=== PATIENT | female | born 1940 | race Two or more races ===

== ENCOUNTER 2022-08-24 02:21 | Inpatient (IN) | payer MEDICARE, MEDICAID ==
[~2022-08-24] VITALS: Ht 170.2 cm; Wt 71.1 kg
[2022-08-24 02:49] LABS: Basophils # (auto) 0.1 10 ^3/uL (0-0.2); Basophils % (auto) 0.8 % (0.0-2.0); Eosinophils # (auto) 0.3 10 ^3/uL (0-0.8); Hematocrit 31.1 % (36.0-46.0); Hemoglobin 10.2 g/dL (12.2-16.2); Lymphocytes # (auto) 2.1 10 ^3/uL (0.4-5.4); Lymphocytes % (auto) 25.3 % (10.0-50.0); Mean Corpuscular Hemoglobin 27.6 pg (28.0-32.0); Mean Corpuscular Hgb Conc. 32.9 g/dL (32.0-36.0); Mean Corpuscular Volume 83.8 fL (80.0-100.0); Monocytes # (auto) 0.6 10 ^3/uL (0-1.3); Monocytes % (auto) 6.6 % (0.0-12.0); Neutrophils # (auto) 5.4 10 ^3/uL (1.6-8.6); Neutrophils % (auto) 64.3 % (37.0-80.0); Red Blood Cells 3.71 10^6/uL (4.0-5.20); Red Cell Distribution Width 14.8 % (11.8-14.3); White Blood Cell 8.4 10^3/uL (4.4-10.8)
[2022-08-24 03:07] LABS: INR 0.99 (0.9-1.15); Partial Thromboplastin Time 23.9 sec (24.6-33.4)
[2022-08-24 03:51] VITALS: BP 112/46
[2022-08-24 04:14] VITALS: BP 112/46
[2022-08-24 04:17] LABS: Albumin 3.5 g/dL (3.4-5.0); Calcium 8.4 mg/dL (8.5-10.1); Potassium 4.2 mmol/L (3.5-5.1)
[2022-08-24 04:20] LABS: BUN/Creatinine Ratio 34.9 (10.0-20.0); Bilirubin, Total 0.2 mg/dL (0.2-1.0); Total Protein 6.8 g/dL (6.4-8.2)
[2022-08-24] MEDS ORDERED: ONDANSETRON HCL 4 MG/2 ML VIAL IV PRN (05:15)
[2022-08-24] MEDS ORDERED: DEXTROSE (50%) 50ML SYRG IV PRN (05:15)
[2022-08-24] MEDS ORDERED: HYDROcodone-ACET 5/325MG TAB PO PRN (05:15)
[2022-08-24] MEDS ORDERED: ACETAMINOPHEN 325 MG TAB PO PRN (05:15)
[2022-08-24] MEDS ORDERED: DOCUSATE SOD 100 MG CAP PO PRN (05:15)
[2022-08-24] MEDS: FUROSEMIDE 40 MG/4 ML VIAL IV ONE ×2 (06:00→06:32)
[2022-08-24] MEDS ORDERED: IPRATROPIUM BROM 0.5 MG/2.5ML INH SOL NEB PRN (06:00)
[2022-08-24] MEDS ORDERED: MORPHINE SULFATE INJ 2 MG/ml SYRG IV PRN (06:00)
[2022-08-24] MEDS ORDERED: NITROGLYCERIN 0.4 MG SL TAB SL PRN (06:00)
[2022-08-24] MEDS ORDERED: ALBUTEROL SULF 2.5 MG/0.5ML(0.5%) NEB SOLN NEB PRN (06:00)
[2022-08-24] MEDS: methylPREDNISolone SOD SUCC 40 MG/ML VL IV SCH ×2 (06:00→15:00)
[2022-08-24] MEDS: SODIUM CHLOR 0.9% PF (SALINE LOCK) 10ML VIAL/SYR IV SCH ×3 (06:17→22:41)
[2022-08-24] MEDS: InsuLIN REG 1unit/0.01ml Soln (100units/ml) SC SCH ×4 (07:00→22:38)
[2022-08-24] MEDS: ACCU-CHEK COMFORT CURVE STRIP VI SCH ×4 (07:00→22:41)
[2022-08-24 07:15] LABS: Urine Bacteria NONE SEEN /hpf (None Seen); Urine Blood Negative /uL (Negative); Urine Specific Gravity 1.012 (1.001-1.035); Urine WBC 1 /hpf (0 - 5)
[2022-08-24] MEDS: FUROSEMIDE 40 MG/4 ML VIAL IV SCH (10:49)
[2022-08-24] MEDS: ASPirin 81 mg TAB PO SCH (10:50)
[2022-08-24] MEDS ORDERED: DOBUTamine 1000MCG/ML 250 ML IV SCH (12:00)
[2022-08-24] MEDS: DOBUTamine 1000MCG/ML 250 ML IV SCH (12:31)
[2022-08-24] MEDS ORDERED: DexAMETHasone SOD PHOS 10MG/1ML VIAL INJ IV ONE (15:15)
[2022-08-24] MEDS ORDERED: ATORVASTATIN 20 MG TAB PO SCH (22:00)
[2022-08-24] MEDS: ATORVASTATIN 20 MG TAB PO SCH (22:40)
[2022-08-24] MEDS ORDERED: METO50CA (23:07)
[2022-08-24] MEDS ORDERED: AMLO1TAB23 PO (23:07)
[2022-08-24] MEDS ORDERED: ASPI-325 PO (23:07)
[2022-08-24] MEDS ORDERED: SIMV40TA18 PO (23:07)
[2022-08-24] MEDS ORDERED: FURO40TA4 PO (23:07)
[2022-08-24] MEDS ORDERED: METF-370 PO (23:07)
[2022-08-24] MEDS ORDERED: MONT-8 PO (23:07)
[2022-08-25] VITALS (7 sets, daily range): BP systolic 139–161; BP diastolic 43–80
[2022-08-25] MEDS: ACCU-CHEK COMFORT CURVE STRIP VI SCH ×4 (06:18→22:04)
[2022-08-25] MEDS: SODIUM CHLOR 0.9% PF (SALINE LOCK) 10ML VIAL/SYR IV SCH ×3 (06:18→22:06)
[2022-08-25] MEDS: InsuLIN REG 1unit/0.01ml Soln (100units/ml) SC SCH ×4 (06:20→22:06)
[2022-08-25 09:53] LABS: Basophils # (auto) 0 10 ^3/uL (0-0.2); Basophils % (auto) 0.3 % (0.0-2.0); Eosinophils # (auto) 0 10 ^3/uL (0-0.8); Hematocrit 26.6 % (36.0-46.0); Hemoglobin 8.7 g/dL (12.2-16.2); Lymphocytes # (auto) 0.6 10 ^3/uL (0.4-5.4); Mean Corpuscular Hemoglobin 27.3 pg (28.0-32.0); Mean Corpuscular Hgb Conc. 32.7 g/dL (32.0-36.0); Mean Corpuscular Volume 83.4 fL (80.0-100.0); Monocytes # (auto) 0.5 10 ^3/uL (0-1.3); Monocytes % (auto) 8.8 % (0.0-12.0); Neutrophils # (auto) 4.5 10 ^3/uL (1.6-8.6); Neutrophils % (auto) 79.9 % (37.0-80.0); Red Blood Cells 3.19 10^6/uL (4.0-5.20); Red Cell Distribution Width 14.7 % (11.8-14.3); White Blood Cell 5.6 10^3/uL (4.4-10.8)
[2022-08-25 10:25] LABS: Albumin 3.4 g/dL (3.4-5.0); Calcium 8.8 mg/dL (8.5-10.1); Potassium 4.3 mmol/L (3.5-5.1)
[2022-08-25 10:31] LABS: BUN/Creatinine Ratio 34.2 (10.0-20.0); Bilirubin, Total 0.2 mg/dL (0.2-1.0); Total Protein 6.4 g/dL (6.4-8.2)
[2022-08-25] MEDS: FUROSEMIDE 40 MG/4 ML VIAL IV SCH (10:42)
[2022-08-25] MEDS: ASPirin 81 mg TAB PO SCH (10:43)
[2022-08-25] MEDS: DexAMETHasone SOD PHOS 10MG/1ML VIAL INJ IV SCH (10:43)
[2022-08-25] MEDS: DOBUTamine 1000MCG/ML 250 ML IV SCH (11:48)
[2022-08-25] MEDS ORDERED: ALBUTEROL SULF 2.5 MG/0.5ML(0.5%) NEB SOLN ONE (14:06)
[2022-08-25] MEDS ORDERED: DexAMETHasone SOD PHOS 4 MG/1ML SDV INJ ONE (14:11)
[2022-08-25] MEDS ORDERED: ALBUTEROL SULF 2.5 MG/0.5ML(0.5%) NEB SOLN NEB ONE (14:15)
[2022-08-25] MEDS ORDERED: hydrALAZINE HCL 20 MG/ML VL IV PRN (14:45)
[2022-08-25] MEDS ORDERED: hydrALAZINE HCL 20 MG/ML VL IV ONE (14:45)
[2022-08-25] MEDS: ATORVASTATIN 20 MG TAB PO SCH (21:11)
[2022-08-26] VITALS (8 sets, daily range): BP systolic 133–161; BP diastolic 47–82
[2022-08-26] MEDS: SODIUM CHLOR 0.9% PF (SALINE LOCK) 10ML VIAL/SYR IV SCH ×3 (06:19→21:28)
[2022-08-26] MEDS: InsuLIN REG 1unit/0.01ml Soln (100units/ml) SC SCH ×4 (06:20→21:28)
[2022-08-26] MEDS: ACCU-CHEK COMFORT CURVE STRIP VI SCH ×4 (06:20→21:25)
[2022-08-26] MEDS: ASPirin 81 mg TAB PO SCH (08:57)
[2022-08-26] MEDS: FUROSEMIDE 40 MG/4 ML VIAL IV SCH (08:59)
[2022-08-26] MEDS: DexAMETHasone SOD PHOS 10MG/1ML VIAL INJ IV SCH (08:59)
[2022-08-26] MEDS: ATORVASTATIN 20 MG TAB PO SCH (21:23)
[2022-08-27 05:00] VITALS: BP 112/49
[2022-08-27] MEDS: SODIUM CHLOR 0.9% PF (SALINE LOCK) 10ML VIAL/SYR IV SCH (06:18)
[2022-08-27] MEDS: ACCU-CHEK COMFORT CURVE STRIP VI SCH ×2 (06:19→12:21)
[2022-08-27] MEDS: InsuLIN REG 1unit/0.01ml Soln (100units/ml) SC SCH ×2 (06:19→12:22)
[2022-08-27 09:00] VITALS: BP 135/55
[2022-08-27] MEDS: FUROSEMIDE 40 MG/4 ML VIAL IV SCH (09:22)
[2022-08-27] MEDS: DexAMETHasone SOD PHOS 10MG/1ML VIAL INJ IV SCH (09:22)
[2022-08-27] MEDS: ASPirin 81 mg TAB PO SCH (09:23)
[2022-08-27 13:00] VITALS: BP 148/62
== END 2022-08-27 13:30 | disposition home or self-care (01) | DRG 194 ==
LOC: ER 02:21 → EDBD 02:21 → TELE 05:49 → TELE-CENTR 21:40
PROVIDERS: ADMIT Nurse Practitioner Family; ATTEND Family Medicine
PROC: 5A09357 Assistance with Respiratory Ventilation, Less than 24 Consecutive Hours, Continuous Positive Airway Pressure (ICD-10-PCS; principal; 2022-08-24)
DX: I13.0 Hypertensive heart and chronic kidney disease with heart failure and stage 1 through stage 4 chronic kidney disease, or unspecified chronic kidney disease (principal); J96.01 Acute respiratory failure with hypoxia; E86.0 Dehydration; I50.23 Acute on chronic systolic (congestive) heart failure; E11.22 Type 2 diabetes mellitus with diabetic chronic kidney disease; Z20.822 Contact with and (suspected) exposure to COVID-19; I16.0 Hypertensive urgency; E11.65 Type 2 diabetes mellitus with hyperglycemia; I25.10 Atherosclerotic heart disease of native coronary artery without angina pectoris; I25.5 Ischemic cardiomyopathy; I34.0 Nonrheumatic mitral (valve) insufficiency; E66.9 Obesity, unspecified; D63.8 Anemia in other chronic diseases classified elsewhere; E78.00 Pure hypercholesterolemia, unspecified; N18.9 Chronic kidney disease, unspecified; Z95.1 Presence of aortocoronary bypass graft; Z98.61 Coronary angioplasty status; Z79.84 Long term (current) use of oral hypoglycemic drugs; Z68.33 Body mass index [BMI] 33.0-33.9, adult; Z79.82 Long term (current) use of aspirin; Z79.899 Other long term (current) drug therapy; Z82.49 Family history of ischemic heart disease and other diseases of the circulatory system
CPT/HCPCS: 36415; 71045; 74176; 80053; 81001; 82962; 83880; 84484; 85025; 85610; 85730; 87426; 93005; 93306; 94640; 94644; 94660; 96365; 96375; G0378; J1100; J1815

== ENCOUNTER 2023-02-05 04:29 | Inpatient (IN) | payer MEDICARE, MEDICAID ==
[2023-02-05] VITALS (9 sets, daily range): BP systolic 108–148; BP diastolic 52–73; PULSE 62–149; RESP 19–30; TEMP 97.8–98.4; O2SAT 85–98
[~2023-02-05] VITALS: Ht 157.5 cm; Wt 85.8 kg
[~2023-02-05 04:29] MED LIST: AMLO1TAB23 PO; ASPI-325 PO; FURO40TA4 PO; METF-370 PO; METO50CA; MONT-8 PO; SIMV40TA18 PO
[2023-02-05] MEDS ORDERED: ALBUTEROL SULF 2.5 MG/0.5ML(0.5%) NEB SOLN NEB ONE (04:45)
[2023-02-05] MEDS ORDERED: IPRATROPIUM BROM 0.5 MG/2.5ML INH SOL NEB ONE (04:45)
[2023-02-05] MEDS ORDERED: dilTIAZem 25 MG/5 ML VIAL IV ONE (05:15)
[2023-02-05 05:18] LABS: Basophils # (auto) 0 10 ^3/uL (0-0.2); Basophils % (auto) 0.2 % (0.0-2.0); Eosinophils # (auto) 0.2 10 ^3/uL (0-0.8); Eosinophils % (auto) 1.4 % (0.0-7.0); Hemoglobin 9.2 g/dL (12.2-16.2); Monocytes # (auto) 0.9 10 ^3/uL (0-1.3); Monocytes % (auto) 7.8 % (0.0-12.0)
[2023-02-05 05:19] LABS: Hematocrit 29.6 % (36.0-46.0); Lymphocytes # (auto) 2.1 10 ^3/uL (0.4-5.4); Lymphocytes % (auto) 17.6 % (10.0-50.0); Mean Corpuscular Hemoglobin 24.5 pg (28.0-32.0); Mean Corpuscular Volume 78.9 fL (80.0-100.0); Neutrophils # (auto) 8.6 10 ^3/uL (1.6-8.6); Red Blood Cells 3.75 10^6/uL (4.0-5.20); White Blood Cell 11.8 10^3/uL (4.4-10.8)
[2023-02-05] MEDS ORDERED: MAGNESIUM SULFATE 1GM/100ML 200 ML IV ONE (05:19)
[2023-02-05] MEDS: MAGNESIUM SULFATE 1GM/100ML 100 ML IV SCH ×2 (05:24→06:48)
[2023-02-05 05:30] LABS: INR 1.03 (0.9-1.15); Partial Thromboplastin Time 23.4 SEC (24.5-34.5); Prothrombin Time 10.8 sec (9.3-11.8)
[2023-02-05 05:38] LABS: Alanine Aminotransferase 12 U/L (7-40); Alkaline Phosphatase 115 U/L (46-116); Anion Gap 10 (5-15); Aspartate Aminotransferase 15 U/L (13-40); Blood Urea Nitrogen 20 mg/dL (9-23); Calcium 9.1 mg/dL (8.7-10.4); Carbon Dioxide 30 mmol/L (20-30); Chloride 99 mmol/L (98-107); Glucose 162 mg/dL (74-106); Potassium 3.3 mmol/L (3.5-5.1); Sodium 139 mmol/L (136-145)
[2023-02-05 05:39] LABS: Albumin 4.5 g/dL (3.2-4.8); Bilirubin, Total 0.5 mg/dL (0.2-1.0)
[2023-02-05] MEDS ORDERED: ALBUMIN 25% 100 ML IV ONE (05:45)
[2023-02-05] MEDS ORDERED: METOPROLOL TARTRATE 1MG/1ML-5ML VIAL IV ONE (05:45)
[2023-02-05] MEDS ORDERED: FUROSEMIDE 40 MG/4 ML VIAL IV ONE (05:45)
[2023-02-05] MEDS ORDERED: POTASSIUM CHL 20MEQ/100ML 100 ML IV ONE ×2 (06:00→11:52)
[2023-02-05] MEDS ORDERED: ENOXAPARIN SOD 80 MG/0.8ML SYRINGE SC ONE (06:45)
[2023-02-05] MEDS ORDERED: MORPHINE SULFATE INJ 2 MG/ml SYRG IV PRN (10:00)
[2023-02-05] MEDS ORDERED: ONDANSETRON HCL 4 MG/2 ML VIAL IV PRN (10:00)
[2023-02-05] MEDS ORDERED: ACETAMINOPHEN 325 MG TAB PO PRN (10:00)
[2023-02-05] MEDS ORDERED: DEXTROSE (50%) 50ML SYRG IV PRN (10:45)
[2023-02-05] MEDS ORDERED: ALBUTEROL SULF 2.5 MG/0.5ML(0.5%) NEB SOLN NEB PRN (10:45)
[2023-02-05] MEDS ORDERED: IPRATROPIUM BROM 0.5 MG/2.5ML INH SOL NEB PRN (10:45)
[2023-02-05 11:37] LABS: LDL Cholesterol 52 mg/dL (< 100)
[2023-02-05 11:38] LABS: Cholesterol 145 mg/dL (< 200); Triglycerides 98 mg/dL (< 150)
[2023-02-05 11:40] LABS: HDL Cholesterol 73 mg/dL (40-59)
[2023-02-05] MEDS: SPIRONOLACTONE 25 MG TAB PO SCH (11:58)
[2023-02-05] MEDS: ENOXAPARIN SOD 40 MG/0.4 ML SYRINGE SC SCH (11:58)
[2023-02-05] MEDS: LISINOPRIL 10 MG TAB PO SCH (11:58)
[2023-02-05] MEDS: InsuLIN REG 1unit/0.01ml Soln (100units/ml) SC SCH ×3 (12:07→22:00)
[2023-02-05] MEDS: ACCU-CHEK COMFORT CURVE STRIP VI SCH ×3 (12:07→22:07)
[2023-02-05] MEDS: FUROSEMIDE 40 MG/4 ML VIAL IV SCH (18:25)
[2023-02-05] MEDS: ATORVASTATIN 20 MG TAB PO SCH (22:08)
[2023-02-05] MEDS: METOPROLOL TARTRATE 25 MG TAB PO SCH (22:08)
[2023-02-05] MEDS ORDERED: IODIXANOL 320MG/ML 100ML BTL IV ONE (22:42)
[2023-02-06] VITALS (12 sets, daily range): BP systolic 129–150; BP diastolic 52–76; PULSE 60–81; RESP 16–26; TEMP 97.4–98.4; O2SAT 95–100
[2023-02-06] MEDS ORDERED: ALBUTEROL MEDNEB 2.5 mg/3ml NEB ONE (03:10)
[2023-02-06] MEDS: FUROSEMIDE 40 MG/4 ML VIAL IV SCH ×2 (05:57→18:55)
[2023-02-06] MEDS: ACCU-CHEK COMFORT CURVE STRIP VI SCH ×4 (06:26→22:14)
[2023-02-06] MEDS: EMPAGLIFLOZIN 10 MG TAB PO SCH (06:26)
[2023-02-06] MEDS: InsuLIN REG 1unit/0.01ml Soln (100units/ml) SC SCH ×4 (06:27→22:00)
[2023-02-06 08:36] LABS: Basophils # (auto) 0 10 ^3/uL (0-0.2); Eosinophils # (auto) 0.1 10 ^3/uL (0-0.8); Hemoglobin 8.2 g/dL (12.2-16.2); Lymphocytes # (auto) 0.9 10 ^3/uL (0.4-5.4); Monocytes # (auto) 0.6 10 ^3/uL (0-1.3); Nucleated Red Blood Cells % 0.1 %
[2023-02-06 08:39] LABS: Basophils % (auto) 0.5 % (0.0-2.0); Eosinophils % (auto) 1.6 % (0.0-7.0); Hematocrit 25.7 % (36.0-46.0); Lymphocytes % (auto) 15.2 % (10.0-50.0); Mean Corpuscular Hemoglobin 25.2 pg (28.0-32.0); Mean Corpuscular Hgb Conc. 31.8 g/dL (32.0-36.0); Mean Corpuscular Volume 79.3 fL (80.0-100.0); Monocytes % (auto) 10.4 % (0.0-12.0); Neutrophils # (auto) 4.1 10 ^3/uL (1.6-8.6); Neutrophils % (auto) 72.3 % (37.0-80.0); Red Blood Cells 3.25 10^6/uL (4.0-5.20); White Blood Cell 5.7 10^3/uL (4.4-10.8)
[2023-02-06 08:50] LABS: Calcium 9.2 mg/dL (8.5-10.1); Chloride 99 mmol/L (98-107); Potassium 3.6 mmol/L (3.5-5.1); Sodium 140 mmol/L (136-145)
[2023-02-06 08:51] LABS: Anion Gap 6 (5-15); Carbon Dioxide 35 mmol/L (20-30)
[2023-02-06 08:56] LABS: BUN/Creatinine Ratio 25.3 (10.0-20.0); Blood Urea Nitrogen 22 mg/dL (9-23); Glucose 138 mg/dL (74-106)
[2023-02-06] MEDS: METOPROLOL TARTRATE 25 MG TAB PO SCH ×2 (10:59→22:14)
[2023-02-06] MEDS: SPIRONOLACTONE 25 MG TAB PO SCH (10:59)
[2023-02-06] MEDS: LISINOPRIL 10 MG TAB PO SCH (11:00)
[2023-02-06] MEDS: ENOXAPARIN SOD 40 MG/0.4 ML SYRINGE SC SCH (11:00)
[2023-02-06] MEDS ORDERED: MET50T PO (11:40)
[2023-02-06] MEDS ORDERED: OMEP20TA PO (11:40)
[2023-02-06] MEDS ORDERED: DICL1GEL73 TD (11:43)
[2023-02-06] MEDS ORDERED: OMEP1CAP70 PO (11:43)
[2023-02-06 12:11] LABS: Urine Bacteria NONE SEEN /hpf (None Seen); Urine Blood Negative /uL (Negative); Urine Clarity Clear (Clear); Urine Protein, UAD TRACE (Negative); Urine Specific Gravity 1.017 (1.001-1.035); Urine Urobilinogen Normal (Negative); Urine WBC <1 /hpf (0 - 5); Urine pH 6.5 (5.0-8.0)
[2023-02-06 12:12] LABS: Urine Color Straw (Yellow)
[2023-02-06 12:23] LABS: Amphetamine Screen, Urine Neg (NEGATIVE)
[2023-02-06 12:25] LABS: Barbiturate Scree,Urine Neg (NEGATIVE); Benzodiazephine Screen, Urine Neg (NEGATIVE); Cannabinoid Screen, Urine Neg (NEGATIVE); Cocaine Screen, Urine Neg (NEGATIVE); Opiate Scree,Urine Neg (NEGATIVE); Phencyclidine Screen, Urine Neg (NEGATIVE)
[2023-02-06] MEDS: ATORVASTATIN 20 MG TAB PO SCH (19:49)
[2023-02-07] VITALS (10 sets, daily range): BP systolic 137–152; BP diastolic 47–66; PULSE 60–79; RESP 16–20; TEMP 97.4–98.3; O2SAT 94–100
[2023-02-07] MEDS: FUROSEMIDE 40 MG/4 ML VIAL IV SCH ×2 (05:51→17:12)
[2023-02-07] MEDS: EMPAGLIFLOZIN 10 MG TAB PO SCH (06:11)
[2023-02-07] MEDS: ACCU-CHEK COMFORT CURVE STRIP VI SCH ×4 (06:18→22:13)
[2023-02-07] MEDS: InsuLIN REG 1unit/0.01ml Soln (100units/ml) SC SCH ×4 (06:18→22:14)
[2023-02-07] MEDS ORDERED: DOCUSATE SOD 100 MG CAP PO ONE (08:00)
[2023-02-07] MEDS ORDERED: LACTULOSE 20Gm/30ML SOLN PO ONE (10:30)
[2023-02-07 11:02] LABS: Basophils # (auto) 0 10 ^3/uL (0-0.2); Eosinophils # (auto) 0.1 10 ^3/uL (0-0.8); Hematocrit 25.7 % (36.0-46.0); Monocytes # (auto) 0.7 10 ^3/uL (0-1.3); Nucleated Red Blood Cells % 0.1 %; White Blood Cell 6.2 10^3/uL (4.4-10.8)
[2023-02-07 11:04] LABS: Basophils % (auto) 0.3 % (0.0-2.0); Eosinophils % (auto) 1.8 % (0.0-7.0); Lymphocytes # (auto) 0.8 10 ^3/uL (0.4-5.4); Lymphocytes % (auto) 13.5 % (10.0-50.0); Mean Corpuscular Hemoglobin 24.8 pg (28.0-32.0); Mean Corpuscular Hgb Conc. 31.1 g/dL (32.0-36.0); Mean Corpuscular Volume 79.8 fL (80.0-100.0); Monocytes % (auto) 10.9 % (0.0-12.0); Neutrophils # (auto) 4.6 10 ^3/uL (1.6-8.6); Neutrophils % (auto) 73.5 % (37.0-80.0); Red Blood Cells 3.23 10^6/uL (4.0-5.20); Red Cell Distribution Width 15.1 % (11.8-14.3)
[2023-02-07 11:12] LABS: Albumin 4.2 g/dL (3.2-4.8); Alkaline Phosphatase 87 U/L (46-116); Anion Gap 5 (5-15); Aspartate Aminotransferase 11 U/L (13-40); Bilirubin, Total 0.4 mg/dL (0.2-1.0); Blood Urea Nitrogen 27 mg/dL (9-23); Calcium 9.2 mg/dL (8.5-10.1); Carbon Dioxide 36 mmol/L (20-30); Chloride 102 mmol/L (98-107); Glucose 99 mg/dL (74-106); Sodium 143 mmol/L (136-145); Total Protein 6.4 g/dL (5.7-8.2)
[2023-02-07] MEDS: SPIRONOLACTONE 25 MG TAB PO SCH (11:16)
[2023-02-07] MEDS: LISINOPRIL 10 MG TAB PO SCH (11:16)
[2023-02-07] MEDS: METOPROLOL TARTRATE 25 MG TAB PO SCH ×2 (11:17→22:13)
[2023-02-07] MEDS: ENOXAPARIN SOD 40 MG/0.4 ML SYRINGE SC SCH (11:17)
[2023-02-07 11:41] LABS: Alanine Aminotransferase < 9 U/L (7-40)
[2023-02-07] MEDS: ATORVASTATIN 20 MG TAB PO SCH (22:13)
[2023-02-08 05:00] VITALS: BP 140/70; PULSE 81; RESP 18; TEMP 98.2; O2SAT 90
[2023-02-08] MEDS: InsuLIN REG 1unit/0.01ml Soln (100units/ml) SC SCH (06:06)
[2023-02-08] MEDS: FUROSEMIDE 40 MG/4 ML VIAL IV SCH (06:06)
[2023-02-08] MEDS: ACCU-CHEK COMFORT CURVE STRIP VI SCH (06:06)
[2023-02-08] MEDS: EMPAGLIFLOZIN 10 MG TAB PO SCH (06:07)
[2023-02-08] MEDS ORDERED: SPIR25TA8 PO (07:18)
[2023-02-08] MEDS ORDERED: LISI20TA56 PO (07:18)
[2023-02-08] MEDS ORDERED: EMPA1TAB PO (07:18)
[2023-02-08 07:47] VITALS: BP 140/70; PULSE 81; TEMP 36.8
[2023-02-08 08:00] VITALS: BP 154/57; PULSE 77; PULSE 78; RESP 16; TEMP 98.6
[2023-02-08 09:00] VITALS: BP 154/57; PULSE 77; RESP 16; TEMP 98.6; O2SAT 97
[2023-02-08] MEDS: METOPROLOL TARTRATE 25 MG TAB PO SCH (10:20)
[2023-02-08] MEDS: SPIRONOLACTONE 25 MG TAB PO SCH (10:20)
[2023-02-08] MEDS: LISINOPRIL 10 MG TAB PO SCH (10:21)
[2023-02-08] MEDS: ENOXAPARIN SOD 40 MG/0.4 ML SYRINGE SC SCH (10:21)
== END 2023-02-08 12:42 | disposition home or self-care (01) | DRG 133 ==
LOC: ER 04:29 → EDSEX 04:29 → EDBD 04:29 → OVERFLOW 09:58 → TELE-WESTW 22:35
PROVIDERS: ADMIT Internal Medicine
PROC: 5A09357 Assistance with Respiratory Ventilation, Less than 24 Consecutive Hours, Continuous Positive Airway Pressure (ICD-10-PCS; principal; 2023-02-05)
DX: J96.21 Acute and chronic respiratory failure with hypoxia (principal); I21.A1 Myocardial infarction type 2; I50.23 Acute on chronic systolic (congestive) heart failure; J44.1 Chronic obstructive pulmonary disease with (acute) exacerbation; E86.0 Dehydration; E11.22 Type 2 diabetes mellitus with diabetic chronic kidney disease; J45.901 Unspecified asthma with (acute) exacerbation; D50.9 Iron deficiency anemia, unspecified; I48.91 Unspecified atrial fibrillation; I13.0 Hypertensive heart and chronic kidney disease with heart failure and stage 1 through stage 4 chronic kidney disease, or unspecified chronic kidney disease; E11.65 Type 2 diabetes mellitus with hyperglycemia; E66.9 Obesity, unspecified; N18.9 Chronic kidney disease, unspecified; K59.00 Constipation, unspecified; I25.5 Ischemic cardiomyopathy; E78.5 Hyperlipidemia, unspecified; Z95.1 Presence of aortocoronary bypass graft; I25.10 Atherosclerotic heart disease of native coronary artery without angina pectoris; Z98.61 Coronary angioplasty status; Z68.29 Body mass index [BMI] 29.0-29.9, adult; Z82.49 Family history of ischemic heart disease and other diseases of the circulatory system
CPT/HCPCS: 36415; 71045; 71275; 80048; 80053; 80061; 80307; 81001; 82962; 83036; 83540; 83550; 83735; 83880; 84132; 84484; 85025; 85379; 85610; 85730; 93005; 93306; 94640; 94660; 99291; G0378; J1815; J3480; P9047; Q9967

== ENCOUNTER 2023-02-08 21:27 | Inpatient (IN) | payer MEDICARE, MEDICAID ==
[~2023-02-08] VITALS: Ht 160 cm; Wt 75.5 kg
[~2023-02-08 21:27] MED LIST changes: +DICL1GEL73 TD; +EMPA1TAB PO; +LISI20TA56 PO; +MET50T PO; -METO50CA; +OMEP1CAP70 PO; +SPIR25TA8 PO
[2023-02-08] MEDS ORDERED: ACETAMINOPHEN 325 MG TAB PO ONE (22:00)
[2023-02-08] MEDS ORDERED: DexAMETHasone SOD PHOS 10MG/1ML VIAL INJ IV ONE (22:00)
[2023-02-08] MEDS ORDERED: VANCOMYCIN PER PHARMACY 0 MG IV SCH (22:00)
[2023-02-08] MEDS ORDERED: ASPirin 81 mg TAB PO ONE (22:00)
[2023-02-08] MEDS ORDERED: ALBUTEROL SULF 2.5 MG/0.5ML(0.5%) NEB SOLN HHN ONE (22:00)
[2023-02-08] MEDS ORDERED: ONDANSETRON HCL 4 MG/2 ML VIAL IV ONE (22:00)
[2023-02-08] MEDS ORDERED: FUROSEMIDE 40 MG/4 ML VIAL IV ONE (22:00)
[2023-02-08] MEDS ORDERED: IPRATROPIUM BROM 0.5 MG/2.5ML INH SOL HHN ONE (22:00)
[2023-02-08] MEDS ORDERED: VANCOMYCIN 1GM/250ML 250 ML IV ONE (22:30)
[2023-02-08] MEDS ORDERED: ALBUTEROL MEDNEB 2.5 mg/3ml NEB ONE (22:56)
[2023-02-08 23:01] LABS: Albumin 4.3 g/dL (3.2-4.8); Alkaline Phosphatase 100 U/L (46-116); Anion Gap 8 (5-15); Aspartate Aminotransferase 12 U/L (13-40); BUN/Creatinine Ratio 23.2 (10.0-20.0); Bilirubin, Total 0.6 mg/dL (0.2-1.0); Blood Alcohol < 3.0 mg/dL (<10); Blood Urea Nitrogen 22 mg/dL (9-23); Calcium 9.2 mg/dL (8.7-10.4); Carbon Dioxide 31 mmol/L (20-30); Chloride 100 mmol/L (98-107); Glucose 156 mg/dL (74-106); Magnesium 2.2 mg/dL (1.6-2.6); Potassium 3.8 mmol/L (3.5-5.1); Sodium 139 mmol/L (136-145)
[2023-02-08 23:09] LABS: Alanine Aminotransferase < 9 U/L (7-40)
[2023-02-08 23:15] VITALS: PULSE 93; RESP 18; O2SAT 96
[2023-02-08 23:41] LABS: Base Excess 5.6 mmol/L (-2.0-2.0)
[2023-02-09] VITALS (42 sets, daily range): BP systolic 96–141; BP diastolic 27–69; PULSE 67–101; RESP 10–23; TEMP 97.8–98.6; O2SAT 91–100
[2023-02-09] MEDS ORDERED: PIPERACILLIN-TAZOB 3.375GM 100 ML IV ONE
[2023-02-09] MEDS ORDERED: PIPERACILLIN-TAZOB 3.375GM 100 ML IV SCH
[2023-02-09] MEDS ORDERED: DEXTROSE (50%) 50ML SYRG IV PRN (00:30)
[2023-02-09] MEDS ORDERED: IPRATROPIUM BROM 0.5 MG/2.5ML INH SOL NEB PRN (00:30)
[2023-02-09] MEDS ORDERED: ALBUTEROL MEDNEB 2.5 mg/3ml NEB NEB PRN (00:30)
[2023-02-09] MEDS ORDERED: MORPHINE SULFATE INJ 2 MG/ml SYRG IV PRN (00:30)
[2023-02-09] MEDS ORDERED: ONDANSETRON HCL 4 MG/2 ML VIAL IV PRN (00:30)
[2023-02-09] MEDS ORDERED: NITROGLYCERIN 0.4 MG SL TAB SL PRN (00:30)
[2023-02-09] MEDS ORDERED: ACETAMINOPHEN 325 MG TAB PO PRN (00:30)
[2023-02-09] MEDS ORDERED: DOCUSATE SOD 100 MG CAP PO PRN (00:30)
[2023-02-09 01:13] LABS: Basophils # (auto) 0 10 ^3/uL (0-0.2); Basophils % (auto) 0.1 % (0.0-2.0); Eosinophils # (auto) 0 10 ^3/uL (0-0.8); Lymphocytes # (auto) 0.2 10 ^3/uL (0.4-5.4); Monocytes # (auto) 0.4 10 ^3/uL (0-1.3); Neutrophils # (auto) 10.5 10 ^3/uL (1.6-8.6); Red Cell Distribution Width 15.1 % (11.8-14.3); White Blood Cell 11.1 10^3/uL (4.4-10.8)
[2023-02-09 01:14] LABS: Hematocrit 26.7 % (36.0-46.0); Hemoglobin 8.3 g/dL (12.2-16.2); Lymphocytes % (auto) 2.2 % (10.0-50.0); Mean Corpuscular Hemoglobin 24.8 pg (28.0-32.0); Mean Corpuscular Hgb Conc. 31.1 g/dL (32.0-36.0); Mean Corpuscular Volume 79.9 fL (80.0-100.0); Monocytes % (auto) 3.5 % (0.0-12.0); Neutrophils % (auto) 94.2 % (37.0-80.0); Red Blood Cells 3.34 10^6/uL (4.0-5.20)
[2023-02-09 01:33] LABS: INR 1.1 (0.9-1.15); Partial Thromboplastin Time 28.2 SEC (24.5-34.5); Prothrombin Time 11.5 sec (9.3-11.8)
[2023-02-09 03:52] LABS: Urine Bacteria FEW /hpf (None Seen); Urine Blood 3+ /uL (Negative); Urine Clarity HAZY (Clear); Urine Color Colorless (Yellow); Urine Protein, UAD 1+ (Negative); Urine Specific Gravity 1.012 (1.001-1.035); Urine Urobilinogen Normal (Negative); Urine WBC 16 /hpf (0 - 5)
[2023-02-09] MEDS ORDERED: IPRATROPIUM BROM 0.5 MG/2.5ML INH SOL NEB ONE (04:15)
[2023-02-09] MEDS ORDERED: ALBUTEROL MEDNEB 2.5 mg/3ml NEB NEB ONE (04:15)
[2023-02-09 04:35] LABS: Amphetamine Screen, Urine Neg (NEGATIVE); Barbiturate Scree,Urine Neg (NEGATIVE); Benzodiazephine Screen, Urine Neg (NEGATIVE); Cannabinoid Screen, Urine Neg (NEGATIVE); Cocaine Screen, Urine Neg (NEGATIVE); Opiate Scree,Urine Neg (NEGATIVE); Phencyclidine Screen, Urine Neg (NEGATIVE)
[2023-02-09 04:49] LABS: COVID19 ANTIGEN SOFIA FIA NEGATIVE (NEGATIVE); Rapid Influenza A Negative (Negative); Rapid Influenza B Negative (Negative)
[2023-02-09 06:16] LABS: Basophils # (auto) 0 10 ^3/uL (0-0.2); Eosinophils # (auto) 0 10 ^3/uL (0-0.8); Lymphocytes # (auto) 0.3 10 ^3/uL (0.4-5.4); Mean Corpuscular Hgb Conc. 31.5 g/dL (32.0-36.0); Neutrophils # (auto) 11.1 10 ^3/uL (1.6-8.6)
[2023-02-09 06:17] LABS: Basophils % (auto) 0.1 % (0.0-2.0); Hematocrit 29.7 % (36.0-46.0); Hemoglobin 9.4 g/dL (12.2-16.2); Lymphocytes % (auto) 2.3 % (10.0-50.0); Mean Corpuscular Hemoglobin 25.2 pg (28.0-32.0); Monocytes # (auto) 0.4 10 ^3/uL (0-1.3); Monocytes % (auto) 3.7 % (0.0-12.0); Neutrophils % (auto) 93.9 % (37.0-80.0); Nucleated Red Blood Cells % 0.1 %; Red Blood Cells 3.72 10^6/uL (4.0-5.20); Red Cell Distribution Width 15.8 % (11.8-14.3); White Blood Cell 11.8 10^3/uL (4.4-10.8)
[2023-02-09] MEDS: SODIUM CHLOR 0.9% PF (SALINE LOCK) 10ML VIAL/SYR IV SCH ×4 (06:31→22:03)
[2023-02-09] MEDS: ACCU-CHEK COMFORT CURVE STRIP VI SCH ×4 (06:32→23:18)
[2023-02-09] MEDS: InsuLIN REG 1unit/0.01ml Soln (100units/ml) SC SCH ×4 (06:33→23:20)
[2023-02-09 06:46] LABS: Alanine Aminotransferase 10 U/L (7-40); Albumin 4.4 g/dL (3.2-4.8); Alkaline Phosphatase 103 U/L (46-116); Anion Gap 8 (5-15); Aspartate Aminotransferase 15 U/L (13-40); BUN/Creatinine Ratio 23.1 (10.0-20.0); Blood Urea Nitrogen 27 mg/dL (9-23); Calcium 8.9 mg/dL (8.7-10.4); Carbon Dioxide 32 mmol/L (20-30); Chloride 98 mmol/L (98-107); Glucose 276 mg/dL (74-106); Potassium 3.9 mmol/L (3.5-5.1); Sodium 138 mmol/L (136-145)
[2023-02-09 06:47] LABS: Bilirubin, Total 0.6 mg/dL (0.2-1.0); Total Protein 6.9 g/dL (5.7-8.2)
[2023-02-09] MEDS ORDERED: ENOXAPARIN SOD 40 MG/0.4 ML SYRINGE SC ONE (07:45)
[2023-02-09] MEDS: cefTRIAXone 1GM/50ML D5W 50 ML IV SCH (09:36)
[2023-02-09] MEDS: FAMOTIDINE (10MG/ML) 2ML VL IV SCH (09:37)
[2023-02-09] MEDS: ASPirin 81 mg TAB PO SCH (09:37)
[2023-02-09] MEDS: DexAMETHasone SOD PHOS 10MG/1ML VIAL INJ IV SCH (09:37)
[2023-02-09] MEDS ORDERED: AZITHROMYCIN 500MG/ 250ML 250 ML IV SCH (10:00)
[2023-02-09] MEDS ORDERED: CARVEDILOL 12.5 MG TAB PO SCH (10:00)
[2023-02-09] MEDS ORDERED: FUROSEMIDE 40 MG/4 ML VIAL IV SCH (10:00)
[2023-02-09] MEDS: FUROSEMIDE 40 MG/4 ML VIAL IV SCH ×2 (11:00→22:02)
[2023-02-09] MEDS ORDERED: LISINOPRIL 10 MG TAB PO ONE (11:15)
[2023-02-09] MEDS ORDERED: SPIRONOLACTONE 25 MG TAB PO ONE (11:15)
[2023-02-09] MEDS ORDERED: METOPROLOL TARTRATE 25 MG TAB PO ONE (11:15)
[2023-02-09] MEDS: EMPAGLIFLOZIN 10 MG TAB PO SCH (12:50)
[2023-02-09] MEDS: NOREPINEPHRINE 8 MG/250ML KIT 250 ML IV SCH (12:54)
[2023-02-09] MEDS ORDERED: LIDOCAINE 1% (LOCAL ANESTH.) PF 5ml SDV ID ONE (17:00)
[2023-02-09] MEDS: HYDROcodone-ACET 5/325MG TAB PO PRN ×2 (19:17→23:02)
[2023-02-09] MEDS: METOPROLOL TARTRATE 25 MG TAB PO SCH (22:00)
[2023-02-09] MEDS: ATORVASTATIN 20 MG TAB PO SCH (22:03)
[2023-02-10] VITALS (52 sets, daily range): BP systolic 96–136; BP diastolic 33–75; PULSE 63–89; RESP 11–28; TEMP 98–98.8; O2SAT 92–100
[2023-02-10 04:02] LABS: Red Cell Distribution Width 15.4 % (11.8-14.3)
[2023-02-10 04:06] LABS: Hematocrit 28.1 % (36.0-46.0); Hemoglobin 8.6 g/dL (12.2-16.2); Mean Corpuscular Hemoglobin 24.2 pg (28.0-32.0); Mean Corpuscular Hgb Conc. 30.8 g/dL (32.0-36.0); Mean Corpuscular Volume 78.6 fL (80.0-100.0); Red Blood Cells 3.57 10^6/uL (4.0-5.20); White Blood Cell 21.8 10^3/uL (4.4-10.8)
[2023-02-10 04:23] LABS: Alkaline Phosphatase 95 U/L (46-116); Anion Gap 6 (5-15); BUN/Creatinine Ratio 31.3 (10.0-20.0); Calcium 9.2 mg/dL (8.7-10.4); Carbon Dioxide 32 mmol/L (20-30); Chloride 98 mmol/L (98-107); Glucose 147 mg/dL (74-106); Potassium 4.3 mmol/L (3.5-5.1); Sodium 136 mmol/L (136-145)
[2023-02-10 04:24] LABS: Albumin 4.2 g/dL (3.2-4.8); Aspartate Aminotransferase 12 U/L (13-40); Bilirubin, Total 0.3 mg/dL (0.2-1.0); Total Protein 6.9 g/dL (5.7-8.2)
[2023-02-10 04:43] LABS: Basophils % (manual) 0 (0.0-2.0); Blast Cells 0; Eosinophils % (manual) 0 (0-7); Metamyelocytes % 0; Myelocytes % 0; Reactive Lymphocytes 0
[2023-02-10 04:45] LABS: Alanine Aminotransferase < 9 U/L (7-40); Blood Urea Nitrogen 40 mg/dL (9-23)
[2023-02-10] MEDS: InsuLIN REG 1unit/0.01ml Soln (100units/ml) SC SCH ×3 (06:00→17:54)
[2023-02-10] MEDS: EMPAGLIFLOZIN 10 MG TAB PO SCH (06:09)
[2023-02-10] MEDS: ACCU-CHEK COMFORT CURVE STRIP VI SCH ×4 (06:41→23:56)
[2023-02-10] MEDS: SODIUM CHLOR 0.9% PF (SALINE LOCK) 10ML VIAL/SYR IV SCH ×5 (06:42→23:23)
[2023-02-10 08:32] LABS: Band Neutrophils % (manual) 3; Lymphocytes % (manual) 4 (10.0-50.0); Monocytes % (manual) 7 (0-12); Promyelocytes % 1; Toxic Granulation Marked
[2023-02-10 08:33] LABS: Platelet Estimate Increased
[2023-02-10] MEDS: ASPirin 81 mg TAB PO SCH (08:57)
[2023-02-10] MEDS: DexAMETHasone SOD PHOS 10MG/1ML VIAL INJ IV SCH (08:57)
[2023-02-10] MEDS: ENOXAPARIN SOD 40 MG/0.4 ML SYRINGE SC SCH (08:57)
[2023-02-10] MEDS: FAMOTIDINE (10MG/ML) 2ML VL IV SCH (08:57)
[2023-02-10] MEDS: FUROSEMIDE 40 MG/4 ML VIAL IV SCH ×2 (08:57→23:22)
[2023-02-10] MEDS: cefTRIAXone 1GM/50ML D5W 50 ML IV SCH (08:58)
[2023-02-10] MEDS: METOPROLOL TARTRATE 25 MG TAB PO SCH ×2 (09:05→22:00)
[2023-02-10] MEDS: HYDROcodone-ACET 5/325MG TAB PO PRN (09:49)
[2023-02-10] MEDS ORDERED: LISINOPRIL 10 MG TAB PO SCH (10:00)
[2023-02-10] MEDS ORDERED: SPIRONOLACTONE 25 MG TAB PO SCH (10:00)
[2023-02-10] MEDS: ARTIFICIAL TEARS 15ml EACHEYE PRN (10:16)
[2023-02-10] MEDS: NOREPINEPHRINE 8 MG/250ML KIT 250 ML IV SCH (12:30)
[2023-02-10] MEDS ORDERED: DOXYCYCLINE 100MG/250ML 250 ML IV SCH (13:45)
[2023-02-10] MEDS: ATORVASTATIN 20 MG TAB PO SCH (23:23)
[2023-02-10] MEDS: PIPERACILLIN-TAZOB 3.375GM 100 ML IV SCH (23:23)
[2023-02-11] VITALS (8 sets, daily range): BP systolic 112–130; BP diastolic 50–60; PULSE 62–81; RESP 18; TEMP 97.5–99.3; O2SAT 95–100
[2023-02-11] MEDS: DOXYCYCLINE 100MG/250ML 250 ML IV SCH ×2 (03:04→14:25)
[2023-02-11] MEDS: EMPAGLIFLOZIN 10 MG TAB PO SCH (06:24)
[2023-02-11] MEDS: ACCU-CHEK COMFORT CURVE STRIP VI SCH ×4 (06:24→22:33)
[2023-02-11] MEDS: InsuLIN REG 1unit/0.01ml Soln (100units/ml) SC SCH ×5 (06:29→22:33)
[2023-02-11] MEDS: SODIUM CHLOR 0.9% PF (SALINE LOCK) 10ML VIAL/SYR IV SCH ×5 (06:57→22:33)
[2023-02-11] MEDS: PIPERACILLIN-TAZOB 3.375GM 100 ML IV SCH ×2 (10:38→17:57)
[2023-02-11] MEDS: ASPirin 81 mg TAB PO SCH (10:39)
[2023-02-11] MEDS: ENOXAPARIN SOD 40 MG/0.4 ML SYRINGE SC SCH (10:39)
[2023-02-11] MEDS: FUROSEMIDE 40 MG/4 ML VIAL IV SCH ×2 (10:40→22:34)
[2023-02-11] MEDS: FAMOTIDINE (10MG/ML) 2ML VL IV SCH (10:40)
[2023-02-11 12:17] LABS: Basophils # (auto) 0 10 ^3/uL (0-0.2); Basophils % (auto) 0.1 % (0.0-2.0); Eosinophils # (auto) 0 10 ^3/uL (0-0.8); Lymphocytes # (auto) 0.7 10 ^3/uL (0.4-5.4); Mean Corpuscular Volume 79.9 fL (80.0-100.0); Red Blood Cells 3.25 10^6/uL (4.0-5.20)
[2023-02-11 12:19] LABS: Hematocrit 25.9 % (36.0-46.0); Lymphocytes % (auto) 5.9 % (10.0-50.0); Mean Corpuscular Hemoglobin 24.8 pg (28.0-32.0); Monocytes # (auto) 1.5 10 ^3/uL (0-1.3); Monocytes % (auto) 12.2 % (0.0-12.0); Neutrophils # (auto) 9.9 10 ^3/uL (1.6-8.6); Neutrophils % (auto) 81.8 % (37.0-80.0); Red Cell Distribution Width 15.4 % (11.8-14.3); White Blood Cell 12.1 10^3/uL (4.4-10.8)
[2023-02-11 12:31] LABS: Alanine Aminotransferase 12 U/L (7-40); Albumin 3.8 g/dL (3.2-4.8); Alkaline Phosphatase 77 U/L (46-116); Anion Gap 5 (5-15); Aspartate Aminotransferase 16 U/L (13-40); BUN/Creatinine Ratio 43.3 (10.0-20.0); Blood Urea Nitrogen 42 mg/dL (9-23); Carbon Dioxide 33 mmol/L (20-30); Chloride 101 mmol/L (98-107); Glucose 130 mg/dL (74-106); Potassium 4.3 mmol/L (3.5-5.1); Sodium 139 mmol/L (136-145)
[2023-02-11 12:33] LABS: Bilirubin, Total 0.2 mg/dL (0.2-1.0)
[2023-02-11 12:34] LABS: Total Protein 6.1 g/dL (5.7-8.2)
[2023-02-11] MEDS: DOBUTamine 1000MCG/ML 250 ML IV SCH (22:21)
[2023-02-11] MEDS: ATORVASTATIN 20 MG TAB PO SCH (22:28)
[2023-02-12] VITALS (10 sets, daily range): BP systolic 114–139; BP diastolic 45–80; PULSE 72–89; RESP 17–21; TEMP 97.9–99; O2SAT 95–100
[2023-02-12] MEDS: PIPERACILLIN-TAZOB 3.375GM 100 ML IV SCH ×3 (02:51→18:27)
[2023-02-12] MEDS: DOXYCYCLINE 100MG/250ML 250 ML IV SCH ×2 (02:52→16:24)
[2023-02-12] MEDS: DOBUTamine 1000MCG/ML 250 ML IV SCH (04:28)
[2023-02-12 05:54] LABS: Basophils # (auto) 0 10 ^3/uL (0-0.2); Basophils % (auto) 0.1 % (0.0-2.0); Eosinophils # (auto) 0.1 10 ^3/uL (0-0.8); Hemoglobin 8.4 g/dL (12.2-16.2); Monocytes # (auto) 1.2 10 ^3/uL (0-1.3); Neutrophils % (auto) 73.3 % (37.0-80.0); Red Blood Cells 3.33 10^6/uL (4.0-5.20)
[2023-02-12 05:55] LABS: Eosinophils % (auto) 0.8 % (0.0-7.0); Hematocrit 26.2 % (36.0-46.0); Lymphocytes % (auto) 11.8 % (10.0-50.0); Mean Corpuscular Hemoglobin 25.2 pg (28.0-32.0); Mean Corpuscular Hgb Conc. 32.1 g/dL (32.0-36.0); Mean Corpuscular Volume 78.5 fL (80.0-100.0); Neutrophils # (auto) 6.1 10 ^3/uL (1.6-8.6); Red Cell Distribution Width 15.3 % (11.8-14.3); White Blood Cell 8.3 10^3/uL (4.4-10.8)
[2023-02-12] MEDS: EMPAGLIFLOZIN 10 MG TAB PO SCH (05:58)
[2023-02-12] MEDS: InsuLIN REG 1unit/0.01ml Soln (100units/ml) SC SCH ×3 (06:00→18:37)
[2023-02-12 06:06] LABS: Alanine Aminotransferase 16 U/L (7-40); Albumin 3.8 g/dL (3.2-4.8); Alkaline Phosphatase 84 U/L (46-116); Anion Gap 2 (5-15); Aspartate Aminotransferase 14 U/L (13-40); BUN/Creatinine Ratio 39.4 (10.0-20.0); Blood Urea Nitrogen 41 mg/dL (9-23); Calcium 8.7 mg/dL (8.7-10.4); Carbon Dioxide 35 mmol/L (20-30); Chloride 100 mmol/L (98-107); Glucose 123 mg/dL (74-106); Potassium 4.3 mmol/L (3.5-5.1); Sodium 137 mmol/L (136-145)
[2023-02-12 06:07] LABS: Bilirubin, Total 0.3 mg/dL (0.2-1.0); Total Protein 6.2 g/dL (5.7-8.2)
[2023-02-12] MEDS: SODIUM CHLOR 0.9% PF (SALINE LOCK) 10ML VIAL/SYR IV SCH ×5 (06:23→21:51)
[2023-02-12] MEDS: ACCU-CHEK COMFORT CURVE STRIP VI SCH ×3 (06:24→18:27)
[2023-02-12] MEDS: FUROSEMIDE 40 MG/4 ML VIAL IV SCH ×2 (10:53→21:50)
[2023-02-12] MEDS: ASPirin 81 mg TAB PO SCH (10:54)
[2023-02-12] MEDS: FAMOTIDINE (10MG/ML) 2ML VL IV SCH (10:54)
[2023-02-12] MEDS: ENOXAPARIN SOD 40 MG/0.4 ML SYRINGE SC SCH (10:55)
[2023-02-12] MEDS ORDERED: ENOXAPARIN SOD 40 MG/0.4 ML SYRINGE SC ONE (18:00)
[2023-02-12] MEDS: ATORVASTATIN 20 MG TAB PO SCH (21:49)
[2023-02-13] VITALS (8 sets, daily range): BP systolic 114–127; BP diastolic 58–79; PULSE 84–105; RESP 17–18; TEMP 98–98.8; O2SAT 97–99
[2023-02-13] MEDS: DOXYCYCLINE 100MG/250ML 250 ML IV SCH ×2 (01:35→14:32)
[2023-02-13] MEDS: PIPERACILLIN-TAZOB 3.375GM 100 ML IV SCH ×3 (03:27→18:18)
[2023-02-13 05:54] LABS: Basophils # (auto) 0 10 ^3/uL (0-0.2); Basophils % (auto) 0.1 % (0.0-2.0); Eosinophils # (auto) 0.1 10 ^3/uL (0-0.8); Eosinophils % (auto) 1.6 % (0.0-7.0); Hemoglobin 9.1 g/dL (12.2-16.2); Monocytes # (auto) 1.2 10 ^3/uL (0-1.3); Red Cell Distribution Width 15.2 % (11.8-14.3)
[2023-02-13 05:57] LABS: Hematocrit 28.3 % (36.0-46.0); Lymphocytes % (auto) 11.5 % (10.0-50.0); Mean Corpuscular Hemoglobin 25.1 pg (28.0-32.0); Mean Corpuscular Hgb Conc. 32.1 g/dL (32.0-36.0); Mean Corpuscular Volume 78.2 fL (80.0-100.0); Monocytes % (auto) 14.5 % (0.0-12.0); Neutrophils % (auto) 72.3 % (37.0-80.0); Red Blood Cells 3.62 10^6/uL (4.0-5.20); White Blood Cell 8.3 10^3/uL (4.4-10.8)
[2023-02-13] MEDS ORDERED: DOBUTamine 1000MCG/ML 250 ML IV SCH (06:00)
[2023-02-13] MEDS: InsuLIN REG 1unit/0.01ml Soln (100units/ml) SC SCH ×4 (06:10→18:22)
[2023-02-13 06:12] LABS: Alanine Aminotransferase 27 U/L (7-40); Alkaline Phosphatase 98 U/L (46-116); Anion Gap 5 (5-15); Aspartate Aminotransferase 21 U/L (13-40); BUN/Creatinine Ratio 30.6 (10.0-20.0); Bilirubin, Total 0.4 mg/dL (0.2-1.0); Blood Urea Nitrogen 34 mg/dL (9-23); Calcium 8.9 mg/dL (8.7-10.4); Carbon Dioxide 35 mmol/L (20-30); Chloride 97 mmol/L (98-107); Glucose 141 mg/dL (74-106); Potassium 3.6 mmol/L (3.5-5.1); Sodium 137 mmol/L (136-145)
[2023-02-13 06:13] LABS: Total Protein 6.7 g/dL (5.7-8.2)
[2023-02-13] MEDS: SODIUM CHLOR 0.9% PF (SALINE LOCK) 10ML VIAL/SYR IV SCH ×5 (06:13→22:25)
[2023-02-13] MEDS: ACCU-CHEK COMFORT CURVE STRIP VI SCH ×4 (06:13→18:18)
[2023-02-13] MEDS: EMPAGLIFLOZIN 10 MG TAB PO SCH (06:40)
[2023-02-13] MEDS: FAMOTIDINE (10MG/ML) 2ML VL IV SCH (09:24)
[2023-02-13] MEDS: FUROSEMIDE 40 MG/4 ML VIAL IV SCH ×2 (09:24→22:24)
[2023-02-13] MEDS: ENOXAPARIN SOD 80 MG/0.8ML SYRINGE SC SCH (09:24)
[2023-02-13] MEDS: ASPirin 81 mg TAB PO SCH (09:25)
[2023-02-13] MEDS: ATORVASTATIN 20 MG TAB PO SCH (22:19)
[2023-02-14] VITALS: BP 127/75; PULSE 83
[2023-02-14] MEDS: ACCU-CHEK COMFORT CURVE STRIP VI SCH ×3 (00:01→11:54)
[2023-02-14] MEDS: PIPERACILLIN-TAZOB 3.375GM 100 ML IV SCH ×2 (01:58→09:58)
[2023-02-14] MEDS: DOXYCYCLINE 100MG/250ML 250 ML IV SCH (02:02)
[2023-02-14 05:00] VITALS: BP 124/71; PULSE 84; RESP 18; TEMP 98.7; O2SAT 100
[2023-02-14] MEDS: SODIUM CHLOR 0.9% PF (SALINE LOCK) 10ML VIAL/SYR IV SCH ×2 (05:50→09:58)
[2023-02-14] MEDS: InsuLIN REG 1unit/0.01ml Soln (100units/ml) SC SCH ×3 (05:50→11:54)
[2023-02-14 05:57] LABS: Basophils # (auto) 0 10 ^3/uL (0-0.2); Basophils % (auto) 0.1 % (0.0-2.0); Lymphocytes % (auto) 10.8 % (10.0-50.0); Mean Corpuscular Volume 78.9 fL (80.0-100.0); Neutrophils # (auto) 7.2 10 ^3/uL (1.6-8.6); Nucleated Red Blood Cells % 0.1 %
[2023-02-14 05:58] LABS: Eosinophils # (auto) 0.3 10 ^3/uL (0-0.8); Eosinophils % (auto) 2.7 % (0.0-7.0); Hematocrit 28.5 % (36.0-46.0); Hemoglobin 9.3 g/dL (12.2-16.2); Lymphocytes # (auto) 1.1 10 ^3/uL (0.4-5.4); Mean Corpuscular Hemoglobin 25.7 pg (28.0-32.0); Mean Corpuscular Hgb Conc. 32.6 g/dL (32.0-36.0); Monocytes # (auto) 1.3 10 ^3/uL (0-1.3); Neutrophils % (auto) 73.4 % (37.0-80.0); Red Blood Cells 3.61 10^6/uL (4.0-5.20); Red Cell Distribution Width 15.3 % (11.8-14.3); White Blood Cell 9.8 10^3/uL (4.4-10.8)
[2023-02-14 06:00] LABS: Chloride 98 mmol/L (98-107); Potassium 3.5 mmol/L (3.5-5.1); Sodium 135 mmol/L (136-145)
[2023-02-14 06:01] LABS: Anion Gap 3 (5-15); Calcium 8.9 mg/dL (8.7-10.4); Carbon Dioxide 34 mmol/L (20-30)
[2023-02-14 06:06] LABS: BUN/Creatinine Ratio 27.4 (10.0-20.0); Blood Urea Nitrogen 29 mg/dL (9-23); Glucose 145 mg/dL (74-106)
[2023-02-14] MEDS: EMPAGLIFLOZIN 10 MG TAB PO SCH (06:17)
[2023-02-14 08:00] VITALS: PULSE 84; PULSE 91; RESP 16; O2SAT 100
[2023-02-14 09:00] VITALS: BP 148/78; PULSE 91; RESP 16; TEMP 98; O2SAT 100
[2023-02-14] MEDS: FUROSEMIDE 40 MG/4 ML VIAL IV SCH (09:56)
[2023-02-14] MEDS: ASPirin 81 mg TAB PO SCH (09:57)
[2023-02-14] MEDS: FAMOTIDINE (10MG/ML) 2ML VL IV SCH (09:57)
[2023-02-14] MEDS: ARTIFICIAL TEARS 15ml EACHEYE PRN (09:59)
[2023-02-14] MEDS: ENOXAPARIN SOD 80 MG/0.8ML SYRINGE SC SCH (10:00)
[2023-02-14] MEDS ORDERED: FUR20T GT (10:05)
[2023-02-14] MEDS ORDERED: FUR20T PO (10:27)
[2023-02-14] MEDS ORDERED: DOXY100C4 PO (10:27)
[2023-02-14] MEDS ORDERED: SACU1TAB PO (10:27)
[2023-02-14] MEDS ORDERED: APIX5TAB PO (10:28)
[2023-02-14 13:00] VITALS: BP 120/67; PULSE 88; RESP 16; TEMP 97.6; O2SAT 99
[2023-02-14 15:51] VITALS: BP 120/67; PULSE 88; RESP 16; TEMP 97.6; O2SAT 99
[2023-02-15] MEDS ORDERED: DOXYCYCLINE 100 MG TAB/CAP PO SCH (10:00)
== END 2023-02-14 18:00 | disposition home or self-care (01) | DRG 720 ==
LOC: EDBD 21:27 → ER 21:27 → TELE 02-09 00:44 → ICU WEST 02-09 15:15 → TELE-EAST 02-10 21:30
PROVIDERS: ADMIT Internal Medicine
DX: A41.9 Sepsis, unspecified organism (principal); J96.01 Acute respiratory failure with hypoxia; I21.A1 Myocardial infarction type 2; I50.43 Acute on chronic combined systolic (congestive) and diastolic (congestive) heart failure; J15.69 Pneumonia due to other Gram-negative bacteria; E11.22 Type 2 diabetes mellitus with diabetic chronic kidney disease; J45.901 Unspecified asthma with (acute) exacerbation; I13.0 Hypertensive heart and chronic kidney disease with heart failure and stage 1 through stage 4 chronic kidney disease, or unspecified chronic kidney disease; D64.9 Anemia, unspecified; Z20.822 Contact with and (suspected) exposure to COVID-19; E66.01 Morbid (severe) obesity due to excess calories; N39.0 Urinary tract infection, site not specified; E78.5 Hyperlipidemia, unspecified; I25.10 Atherosclerotic heart disease of native coronary artery without angina pectoris; N18.9 Chronic kidney disease, unspecified; I35.0 Nonrheumatic aortic (valve) stenosis; Z68.35 Body mass index [BMI] 35.0-35.9, adult; Z95.1 Presence of aortocoronary bypass graft; Z91.018 Allergy to other foods
CPT/HCPCS: 36415; 36569; 36600; 71045; 71250; 80048; 80053; 80307; 80320; 81001; 82805; 82962; 83605; 83735; 83880; 84484; 85007; 85025; 85027; 85379; 85384; 85610; 85730; 86850; 86900; 86901; 87040; 87081; 87086; 87426; 87804; 93005; 93971; 94640; 94660; 96374; 96375; 97110; 97116; 97163; 97530; 99291; G0378; J0696; J1100; J1815; J2405; J2543; J3490

== ENCOUNTER 2023-03-14 00:55 | Inpatient (IN) | payer MEDICARE, MEDICAID ==
[2023-03-14] VITALS (29 sets, daily range): BP systolic 101–146; BP diastolic 40–57; PULSE 58–87; RESP 10–28; TEMP 98.8–99.3; O2SAT 78–100
[~2023-03-14] VITALS: Ht 160 cm; Wt 77.9 kg
[~2023-03-14 00:55] MED LIST changes: +APIX5TAB PO; +DOXY100C4 PO; +FUR20T PO; -LISI20TA56 PO; -MET50T PO; +SACU1TAB PO
[2023-03-14] MEDS ORDERED: MIDAZOLAM DRIP 50 mg/50mL 50 ML IV ONE ×2 (00:57→04:00)
[2023-03-14] MEDS ORDERED: SUCCINYLCHOLINE CHLORIDE 20 MG/ML 10ML VIAL IV ONE ×2 (00:57→01:00)
[2023-03-14] MEDS ORDERED: ETOMIDATE (2MG/ML) 20ML VIAL IV ONE ×2 (00:57→01:00)
[2023-03-14] MEDS: MIDAZOLAM DRIP 50 mg/50mL 50 ML IV SCH ×5 (01:05→19:09)
[2023-03-14] MEDS ORDERED: AMIODARONE BOLUS KIT 100 ML IV ONE (01:15)
[2023-03-14] MEDS ORDERED: AMIODARONE 450mg/250ml AE 250 ML IV SCH (01:15)
[2023-03-14] MEDS ORDERED: fentaNYL Drip 2500mCg/250mlNS 250 ML IV ONE (01:20)
[2023-03-14] MEDS: fentaNYL Drip 2500mCg/250mlNS 250 ML IV SCH (01:26)
[2023-03-14 01:46] LABS: Basophils # (auto) 0 10 ^3/uL (0-0.2); Basophils % (auto) 0.7 % (0.0-2.0); Eosinophils # (auto) 0.1 10 ^3/uL (0-0.8); Eosinophils % (auto) 0.9 % (0.0-7.0); Hematocrit 31.4 % (36.0-46.0); Hemoglobin 9.7 g/dL (12.2-16.2); Lymphocytes # (auto) 1.5 10 ^3/uL (0.4-5.4); Lymphocytes % (auto) 23.1 % (10.0-50.0); Mean Corpuscular Hemoglobin 25.6 pg (28.0-32.0); Mean Corpuscular Hgb Conc. 30.9 g/dL (32.0-36.0); Mean Corpuscular Volume 82.8 fL (80.0-100.0); Monocytes # (auto) 0.5 10 ^3/uL (0-1.3); Neutrophils # (auto) 4.4 10 ^3/uL (1.6-8.6); Neutrophils % (auto) 67.3 % (37.0-80.0); Nucleated Red Blood Cells % 0.2 %; White Blood Cell 6.6 10^3/uL (4.4-10.8)
[2023-03-14] MEDS ORDERED: NOREPINEPHRINE 8 MG/250ML KIT 250 ML IV ONE (01:56)
[2023-03-14 01:59] LABS: Alanine Aminotransferase 15 U/L (7-40); Albumin 3.8 g/dL (3.2-4.8); Alkaline Phosphatase 121 U/L (46-116); Anion Gap 10 (5-15); Aspartate Aminotransferase 15 U/L (13-40); BUN/Creatinine Ratio 30.3 (10.0-20.0); Bilirubin, Total 0.3 mg/dL (0.2-1.0); Blood Urea Nitrogen 37 mg/dL (9-23); Calcium 8.4 mg/dL (8.7-10.4); Carbon Dioxide 23 mmol/L (20-30); Chloride 99 mmol/L (98-107); Glucose 275 mg/dL (74-106); Magnesium 2.2 mg/dL (1.6-2.6); Potassium 5.1 mmol/L (3.5-5.1); Sodium 132 mmol/L (136-145); Total Protein 7.2 g/dL (5.7-8.2)
[2023-03-14] MEDS: NOREPINEPHRINE 8 MG/250ML KIT 250 ML IV SCH (02:00)
[2023-03-14] MEDS ORDERED: NOREPINEPHRINE 8 MG/250ML KIT 250 ML IV SCH (02:00)
[2023-03-14] MEDS ORDERED: levoFLOXacin 500MG 100 ML IV ONE (02:00)
[2023-03-14] MEDS ORDERED: DOPamine 1600MCG/ML D5W 250 ML IV ONE (02:30)
[2023-03-14 02:36] LABS: Lactic Acid w/Reflex 3.2 mmol/L (0.4-2.0)
[2023-03-14 02:45] LABS: Urine Bacteria NONE SEEN /hpf (None Seen); Urine Blood Negative /uL (Negative); Urine Clarity HAZY (Clear); Urine Color Colorless (Yellow); Urine Mucus FEW (None Seen); Urine Protein, UAD 2+ (Negative); Urine Specific Gravity 1.016 (1.001-1.035); Urine Urobilinogen Normal (Negative); Urine WBC 8 /hpf (0 - 5); Urine WBC Clumps PRESENT /hpf (None Seen); Urine pH 5.5 (5.0-8.0)
[2023-03-14] MEDS ORDERED: VANCOMYCIN 1GM/200ML 250 ML IV ONE (02:45)
[2023-03-14] MEDS ORDERED: SODIUM CHLORIDE 0.9% 1,000 ML IV ONE (02:45)
[2023-03-14 05:21] LABS: COVID19 ANTIGEN SOFIA FIA NEGATIVE (NEGATIVE); Rapid Influenza A Negative (Negative); Rapid Influenza B Negative (Negative)
[2023-03-14] MEDS ORDERED: NITROGLYCERIN 0.4 MG SL TAB SL PRN (06:45)
[2023-03-14] MEDS ORDERED: ONDANSETRON HCL 4 MG/2 ML VIAL IV PRN (06:45)
[2023-03-14] MEDS ORDERED: MORPHINE SULFATE INJ 2 MG/ml SYRG IV PRN (06:45)
[2023-03-14] MEDS ORDERED: DEXTROSE (50%) 50ML SYRG IV PRN (06:45)
[2023-03-14 07:26] LABS: Base Excess 3.4 mmol/L (-2.0-2.0)
[2023-03-14] MEDS ORDERED: cefTRIAXone 1GM/50ML D5W 50 ML IV SCH (09:00)
[2023-03-14] MEDS ORDERED: AZITHROMYCIN 500MG/ 250ML 250 ML IV SCH (10:00)
[2023-03-14] MEDS ORDERED: ASPirin 81 mg TAB PO SCH (10:00)
[2023-03-14] MEDS: FUROSEMIDE 20 MG/2 ML VIAL IV SCH (10:00)
[2023-03-14] MEDS ORDERED: ENOXAPARIN SOD 40 MG/0.4 ML SYRINGE SC ONE (10:30)
[2023-03-14] MEDS ORDERED: FUROSEMIDE 40 MG/4 ML VIAL IV ONE (10:45)
[2023-03-14 12:12] LABS: Anion Gap 9 (5-15); Calcium 8.3 mg/dL (8.5-10.1); Carbon Dioxide 23 mmol/L (20-30); Chloride 103 mmol/L (98-107); Potassium 4.9 mmol/L (3.5-5.1); Sodium 135 mmol/L (136-145)
[2023-03-14 12:18] LABS: BUN/Creatinine Ratio 25.3 (10.0-20.0); Glucose 118 mg/dL (74-106)
[2023-03-14 12:21] LABS: Blood Urea Nitrogen 25 mg/dL (9-23)
[2023-03-14] MEDS: InsuLIN REG 1unit/0.01ml Soln (100units/ml) SC SCH ×2 (13:02→18:00)
[2023-03-14] MEDS: ACCU-CHEK COMFORT CURVE STRIP VI SCH ×2 (13:03→18:00)
[2023-03-14] MEDS ORDERED: VANCOMYCIN PER PHARMACY 0 MG IV SCH (14:15)
[2023-03-14] MEDS: CEFEPIME 1GM/ 50ML 50 ML IV SCH (21:56)
[2023-03-14] MEDS ORDERED: AMIODARONE HCL 200 MG TAB PO SCH (22:00)
[2023-03-15] VITALS (108 sets, daily range): BP systolic 70–161; BP diastolic 29–83; PULSE 50–93; RESP 9–19; TEMP 98.2–100.9; O2SAT 92–100
[2023-03-15] MEDS: fentaNYL Drip 2500mCg/250mlNS 250 ML IV SCH ×2 (01:30→16:45)
[2023-03-15] MEDS: NOREPINEPHRINE 8 MG/250ML KIT 250 ML IV SCH (02:00)
[2023-03-15] MEDS: VANCOMYCIN 1GM/200ML 250 ML IV SCH (02:26)
[2023-03-15 02:42] LABS: Basophils # (auto) 0 10 ^3/uL (0-0.2); Basophils % (auto) 0.4 % (0.0-2.0); Eosinophils # (auto) 0 10 ^3/uL (0-0.8); Hemoglobin 7.9 g/dL (12.2-16.2); Lymphocytes # (auto) 0.6 10 ^3/uL (0.4-5.4); Monocytes # (auto) 0.6 10 ^3/uL (0-1.3); Monocytes % (auto) 9.7 % (0.0-12.0); Neutrophils # (auto) 4.9 10 ^3/uL (1.6-8.6); Nucleated Red Blood Cells % 0.1 %; White Blood Cell 6.2 10^3/uL (4.4-10.8)
[2023-03-15 02:44] LABS: Eosinophils % (auto) 0.4 % (0.0-7.0); Hematocrit 24.7 % (36.0-46.0); Lymphocytes % (auto) 10.5 % (10.0-50.0); Mean Corpuscular Hemoglobin 25.7 pg (28.0-32.0); Mean Corpuscular Hgb Conc. 31.8 g/dL (32.0-36.0); Mean Corpuscular Volume 80.7 fL (80.0-100.0); Red Blood Cells 3.06 10^6/uL (4.0-5.20); Red Cell Distribution Width 18.5 % (11.8-14.3)
[2023-03-15 03:11] LABS: Albumin 3.1 g/dL (3.2-4.8); Alkaline Phosphatase 101 U/L (46-116); Anion Gap 8 (5-15); Aspartate Aminotransferase 11 U/L (13-40); BUN/Creatinine Ratio 32.3 (10.0-20.0); Blood Urea Nitrogen 30 mg/dL (9-23); Calcium 8.3 mg/dL (8.7-10.4); Carbon Dioxide 25 mmol/L (20-30); Chloride 102 mmol/L (98-107); Glucose 124 mg/dL (74-106); Potassium 4.3 mmol/L (3.5-5.1); Sodium 135 mmol/L (136-145)
[2023-03-15 03:12] LABS: Bilirubin, Total 0.4 mg/dL (0.2-1.0); Total Protein 5.8 g/dL (5.7-8.2)
[2023-03-15 03:27] LABS: Alanine Aminotransferase < 9 U/L (7-40)
[2023-03-15] MEDS: InsuLIN REG 1unit/0.01ml Soln (100units/ml) SC SCH ×4 (06:00→18:00)
[2023-03-15] MEDS: ACCU-CHEK COMFORT CURVE STRIP VI SCH ×4 (07:10→18:00)
[2023-03-15 08:34] LABS: Base Excess 2.3 mmol/L (-2.0-2.0)
[2023-03-15] MEDS: CEFEPIME 1GM/ 50ML 50 ML IV SCH ×2 (10:07→22:00)
[2023-03-15] MEDS: MIDAZOLAM DRIP 50 mg/50mL 50 ML IV SCH ×2 (10:08→21:35)
[2023-03-15] MEDS: FUROSEMIDE 20 MG/2 ML VIAL IV SCH (10:12)
[2023-03-15] MEDS: ENOXAPARIN SOD 40 MG/0.4 ML SYRINGE SC SCH (10:12)
[2023-03-15] MEDS: ACETAMINOPHEN 325 MG TAB PO PRN (14:08)
[2023-03-16] VITALS (102 sets, daily range): BP systolic 94–180; BP diastolic 34–92; PULSE 54–126; RESP 13–27; TEMP 98.6–100.2; O2SAT 94–100
[2023-03-16] MEDS: ACCU-CHEK COMFORT CURVE STRIP VI SCH ×4 (00:35→17:30)
[2023-03-16] MEDS: NOREPINEPHRINE 8 MG/250ML KIT 250 ML IV SCH (02:00)
[2023-03-16] MEDS: VANCOMYCIN 1GM/200ML 250 ML IV SCH (03:47)
[2023-03-16 03:52] LABS: Basophils # (auto) 0 10 ^3/uL (0-0.2); Eosinophils # (auto) 0.1 10 ^3/uL (0-0.8); Hemoglobin 7.7 g/dL (12.2-16.2); Mean Corpuscular Hemoglobin 25.6 pg (28.0-32.0); Mean Corpuscular Volume 80.4 fL (80.0-100.0); Monocytes # (auto) 0.5 10 ^3/uL (0-1.3); Red Cell Distribution Width 18.6 % (11.8-14.3); White Blood Cell 4.9 10^3/uL (4.4-10.8)
[2023-03-16 03:55] LABS: Basophils % (auto) 0.6 % (0.0-2.0); Eosinophils % (auto) 1.8 % (0.0-7.0); Hematocrit 24.3 % (36.0-46.0); Lymphocytes # (auto) 0.7 10 ^3/uL (0.4-5.4); Lymphocytes % (auto) 13.3 % (10.0-50.0); Mean Corpuscular Hgb Conc. 31.8 g/dL (32.0-36.0); Monocytes % (auto) 10.2 % (0.0-12.0); Neutrophils # (auto) 3.6 10 ^3/uL (1.6-8.6); Neutrophils % (auto) 74.1 % (37.0-80.0); Nucleated Red Blood Cells % 0.1 %; Red Blood Cells 3.02 10^6/uL (4.0-5.20)
[2023-03-16 04:01] LABS: Chloride 102 mmol/L (98-107); Potassium 4.1 mmol/L (3.5-5.1); Sodium 132 mmol/L (136-145)
[2023-03-16 04:02] LABS: Anion Gap 5 (5-15); Calcium 8.3 mg/dL (8.7-10.4); Carbon Dioxide 25 mmol/L (20-30)
[2023-03-16 04:07] LABS: BUN/Creatinine Ratio 25.2 (10.0-20.0); Blood Urea Nitrogen 27 mg/dL (9-23); Glucose 85 mg/dL (74-106)
[2023-03-16] MEDS: InsuLIN REG 1unit/0.01ml Soln (100units/ml) SC SCH ×4 (05:55→17:32)
[2023-03-16] MEDS: FUROSEMIDE 20 MG/2 ML VIAL IV SCH (10:16)
[2023-03-16] MEDS: CEFEPIME 1GM/ 50ML 50 ML IV SCH ×2 (10:16→21:41)
[2023-03-16] MEDS: ENOXAPARIN SOD 40 MG/0.4 ML SYRINGE SC SCH (10:17)
[2023-03-16] MEDS: ASPirin 81 mg TAB PO SCH (10:17)
[2023-03-16] MEDS ORDERED: hydrALAZINE HCL 20 MG/ML VL ONE (13:46)
[2023-03-16] MEDS: hydrALAZINE HCL 20 MG/ML VL IV PRN (13:49)
[2023-03-16] MEDS: Glucerna 1.2 Cal 1Liter BOTTLE GT SCH (14:33)
[2023-03-16] MEDS ORDERED: LABETALOL HCL 5 MG/ML 4ML SYRINGE IV ONE ×2 (15:57→16:00)
[2023-03-16] MEDS: MIDAZOLAM DRIP 50 mg/50mL 50 ML IV SCH (16:02)
[2023-03-16] MEDS ORDERED: hydrALAZINE HCL 20 MG/ML VL IV SCH (18:00)
[2023-03-16] MEDS: Pro-Stat SF 30ml Vanilla GT SCH (21:41)
[2023-03-17] VITALS (110 sets, daily range): BP systolic 93–166; BP diastolic 37–79; PULSE 60–113; RESP 6–35; TEMP 99–100.2; O2SAT 87–100
[2023-03-17] MEDS: ACCU-CHEK COMFORT CURVE STRIP VI SCH ×5 (00:17→23:50)
[2023-03-17] MEDS: MIDAZOLAM DRIP 50 mg/50mL 50 ML IV SCH (00:17)
[2023-03-17] MEDS: NOREPINEPHRINE 8 MG/250ML KIT 250 ML IV SCH (02:00)
[2023-03-17] MEDS: VANCOMYCIN 1GM/200ML 250 ML IV SCH ×2 (03:07→03:08)
[2023-03-17 04:13] LABS: Anion Gap 7 (5-15); Carbon Dioxide 25 mmol/L (20-30); Chloride 103 mmol/L (98-107); Potassium 3.9 mmol/L (3.5-5.1); Sodium 135 mmol/L (136-145)
[2023-03-17 04:14] LABS: Calcium 8.1 mg/dL (8.7-10.4)
[2023-03-17 04:19] LABS: BUN/Creatinine Ratio 28.7 (10.0-20.0); Blood Urea Nitrogen 31 mg/dL (9-23); Glucose 106 mg/dL (74-106)
[2023-03-17 04:24] LABS: Basophils # (auto) 0 10 ^3/uL (0-0.2); Eosinophils # (auto) 0 10 ^3/uL (0-0.8); Lymphocytes # (auto) 0.6 10 ^3/uL (0.4-5.4); Monocytes # (auto) 0.6 10 ^3/uL (0-1.3); White Blood Cell 5.3 10^3/uL (4.4-10.8)
[2023-03-17 04:25] LABS: Basophils % (auto) 0.2 % (0.0-2.0); Eosinophils % (auto) 0.9 % (0.0-7.0); Hematocrit 23.7 % (36.0-46.0); Hemoglobin 7.7 g/dL (12.2-16.2); Lymphocytes % (auto) 10.9 % (10.0-50.0); Mean Corpuscular Hgb Conc. 32.3 g/dL (32.0-36.0); Mean Corpuscular Volume 80.5 fL (80.0-100.0); Monocytes % (auto) 12.2 % (0.0-12.0); Neutrophils % (auto) 75.8 % (37.0-80.0); Red Blood Cells 2.95 10^6/uL (4.0-5.20); Red Cell Distribution Width 19.3 % (11.8-14.3)
[2023-03-17] MEDS: InsuLIN REG 1unit/0.01ml Soln (100units/ml) SC SCH ×5 (06:00→23:50)
[2023-03-17] MEDS: fentaNYL Drip 2500mCg/250mlNS 250 ML IV SCH (07:14)
[2023-03-17 09:18] LABS: Base Excess -1.4 mmol/L (-2.0-2.0)
[2023-03-17] MEDS: FUROSEMIDE 20 MG/2 ML VIAL IV SCH (10:34)
[2023-03-17] MEDS: ASPirin 81 mg TAB PO SCH (10:34)
[2023-03-17] MEDS: CEFEPIME 1GM/ 50ML 50 ML IV SCH ×2 (10:34→21:55)
[2023-03-17] MEDS: Pro-Stat SF 30ml Vanilla GT SCH ×2 (10:34→21:55)
[2023-03-17] MEDS: ENOXAPARIN SOD 40 MG/0.4 ML SYRINGE SC SCH (10:35)
[2023-03-17] MEDS: AMIODARONE HCL 200 MG TAB PO SCH ×2 (13:48→21:55)
[2023-03-17] MEDS: ALBUTEROL SULF 2.5 MG/0.5ML(0.5%) NEB SOLN NEB PRN (18:15)
[2023-03-17] MEDS: DOCUSATE ORAL LIQUID 100 MG/10 ML UD GT SCH (21:54)
[2023-03-18] VITALS (109 sets, daily range): BP systolic 109–152; BP diastolic 36–69; PULSE 54–95; RESP 8–26; TEMP 98.4–99.7; O2SAT 93–100
[2023-03-18] MEDS: fentaNYL Drip 2500mCg/250mlNS 250 ML IV SCH ×2 (01:30→23:33)
[2023-03-18] MEDS: NOREPINEPHRINE 8 MG/250ML KIT 250 ML IV SCH (02:00)
[2023-03-18 03:58] LABS: Basophils # (auto) 0 10 ^3/uL (0-0.2); Hemoglobin 7.1 g/dL (12.2-16.2); Lymphocytes # (auto) 0.4 10 ^3/uL (0.4-5.4); Lymphocytes % (auto) 8.1 % (10.0-50.0); Neutrophils # (auto) 4.3 10 ^3/uL (1.6-8.6); White Blood Cell 5.5 10^3/uL (4.4-10.8)
[2023-03-18 04:01] LABS: Basophils % (auto) 0.3 % (0.0-2.0); Eosinophils # (auto) 0 10 ^3/uL (0-0.8); Eosinophils % (auto) 0.8 % (0.0-7.0); Hematocrit 22.1 % (36.0-46.0); Mean Corpuscular Hgb Conc. 32.2 g/dL (32.0-36.0); Mean Corpuscular Volume 80.9 fL (80.0-100.0); Monocytes # (auto) 0.7 10 ^3/uL (0-1.3); Monocytes % (auto) 11.9 % (0.0-12.0); Neutrophils % (auto) 78.9 % (37.0-80.0); Nucleated Red Blood Cells % 0.1 %; Red Blood Cells 2.73 10^6/uL (4.0-5.20); Red Cell Distribution Width 18.7 % (11.8-14.3)
[2023-03-18 04:10] LABS: Anion Gap 7 (5-15); Calcium 8.3 mg/dL (8.7-10.4); Carbon Dioxide 27 mmol/L (20-30); Chloride 103 mmol/L (98-107); Potassium 3.9 mmol/L (3.5-5.1); Sodium 137 mmol/L (136-145)
[2023-03-18 04:16] LABS: BUN/Creatinine Ratio 31.5 (10.0-20.0); Blood Urea Nitrogen 34 mg/dL (9-23); Glucose 127 mg/dL (74-106)
[2023-03-18] MEDS: MIDAZOLAM DRIP 50 mg/50mL 50 ML IV SCH (05:30)
[2023-03-18] MEDS: ACCU-CHEK COMFORT CURVE STRIP VI SCH ×4 (05:53→23:33)
[2023-03-18] MEDS: InsuLIN REG 1unit/0.01ml Soln (100units/ml) SC SCH ×4 (05:53→23:33)
[2023-03-18] MEDS: AMIODARONE HCL 200 MG TAB PO SCH ×2 (10:00→21:56)
[2023-03-18] MEDS: DOCUSATE ORAL LIQUID 100 MG/10 ML UD GT SCH ×2 (10:39→21:56)
[2023-03-18] MEDS: FUROSEMIDE 20 MG/2 ML VIAL IV SCH (10:39)
[2023-03-18] MEDS: CEFEPIME 1GM/ 50ML 50 ML IV SCH ×2 (10:39→21:56)
[2023-03-18] MEDS: ASPirin 81 mg TAB PO SCH (10:39)
[2023-03-18] MEDS: ENOXAPARIN SOD 40 MG/0.4 ML SYRINGE SC SCH (10:40)
[2023-03-18] MEDS: Pro-Stat SF 30ml Vanilla GT SCH ×2 (10:41→21:57)
[2023-03-18] MEDS ORDERED: VANCOMYCIN 500 MG in D5W 5% 100 ML IV ONE (23:45)
[2023-03-19] VITALS (107 sets, daily range): BP systolic 100–181; BP diastolic 40–112; PULSE 48–155; RESP 10–43; TEMP 97.3–100.8; O2SAT 81–100
[2023-03-19] MEDS: NOREPINEPHRINE 8 MG/250ML KIT 250 ML IV SCH ×2 (02:00→17:13)
[2023-03-19 04:31] LABS: Basophils # (auto) 0 10 ^3/uL (0-0.2); Basophils % (auto) 0.4 % (0.0-2.0); Eosinophils # (auto) 0.1 10 ^3/uL (0-0.8); Lymphocytes # (auto) 0.5 10 ^3/uL (0.4-5.4); Monocytes # (auto) 0.6 10 ^3/uL (0-1.3)
[2023-03-19 04:34] LABS: Eosinophils % (auto) 2.9 % (0.0-7.0); Hematocrit 21.5 % (36.0-46.0); Lymphocytes % (auto) 10.4 % (10.0-50.0); Mean Corpuscular Volume 81.3 fL (80.0-100.0); Monocytes % (auto) 12.9 % (0.0-12.0); Neutrophils # (auto) 3.6 10 ^3/uL (1.6-8.6); Neutrophils % (auto) 73.4 % (37.0-80.0); Nucleated Red Blood Cells % 0.1 %; Red Blood Cells 2.65 10^6/uL (4.0-5.20); White Blood Cell 4.9 10^3/uL (4.4-10.8)
[2023-03-19 04:36] LABS: Hemoglobin 6.9 g/dL (12.2-16.2)
[2023-03-19 04:57] LABS: Anion Gap 6 (5-15); Carbon Dioxide 27 mmol/L (20-30); Chloride 106 mmol/L (98-107); Potassium 3.3 mmol/L (3.5-5.1); Sodium 139 mmol/L (136-145)
[2023-03-19 04:58] LABS: Calcium 8.4 mg/dL (8.7-10.4)
[2023-03-19 05:03] LABS: BUN/Creatinine Ratio 33.7 (10.0-20.0); Blood Urea Nitrogen 32 mg/dL (9-23); Glucose 104 mg/dL (74-106)
[2023-03-19] MEDS: MIDAZOLAM DRIP 50 mg/50mL 50 ML IV SCH ×5 (05:30→17:13)
[2023-03-19] MEDS: InsuLIN REG 1unit/0.01ml Soln (100units/ml) SC SCH ×4 (05:51→23:30)
[2023-03-19] MEDS: ACCU-CHEK COMFORT CURVE STRIP VI SCH ×4 (05:51→23:30)
[2023-03-19] MEDS ORDERED: POTASSIUM CHL 20MEQ/100ML 100 ML IV ONE (09:00)
[2023-03-19] MEDS: ENOXAPARIN SOD 40 MG/0.4 ML SYRINGE SC SCH (10:00)
[2023-03-19] MEDS: ASPirin 81 mg TAB PO SCH ×2 (10:00→10:24)
[2023-03-19] MEDS: Pro-Stat SF 30ml Vanilla GT SCH ×3 (10:00→22:24)
[2023-03-19] MEDS: DOCUSATE ORAL LIQUID 100 MG/10 ML UD GT SCH ×2 (10:23→21:46)
[2023-03-19] MEDS: AMIODARONE HCL 200 MG TAB PO SCH ×2 (10:24→21:46)
[2023-03-19] MEDS: CEFEPIME 1GM/ 50ML 50 ML IV SCH ×2 (10:25→21:46)
[2023-03-19] MEDS: PANTOPRAZOLE 40 MG/10 ML VIAL INJ IV SCH ×2 (12:22→21:46)
[2023-03-19] MEDS: FUROSEMIDE 20 MG/2 ML VIAL IV SCH (12:23)
[2023-03-19 12:27] LABS: Base Excess -2.5 mmol/L (-2.0-2.0)
[2023-03-19] MEDS ORDERED: EPINEPHrine HCL 0.5 ML NEB ONE (12:45)
[2023-03-19] MEDS ORDERED: methylPREDNISolone SOD SUCC 40 MG/ML VL ONE (12:58)
[2023-03-19] MEDS ORDERED: EPINEPHrine HCL 0.5 ML NEB NEB ONE (13:00)
[2023-03-19] MEDS ORDERED: LORazepam 2MG/ML-1ML VIAL ONE (13:00)
[2023-03-19] MEDS: LORazepam 2MG/ML-1ML VIAL IV PRN ×2 (13:05→14:26)
[2023-03-19] MEDS ORDERED: methylPREDNISolone SOD SUCC 40 MG/ML VL IV ONE (13:15)
[2023-03-19] MEDS ORDERED: ETOMIDATE (2MG/ML) 20ML VIAL IV ONE ×2 (13:19→14:15)
[2023-03-19] MEDS ORDERED: ROCURONIUM 10MG/ML 10ML VIAL IV ONE ×2 (13:19→14:15)
[2023-03-19] MEDS ORDERED: FUROSEMIDE 20 MG/2 ML VIAL IV ONE (14:30)
[2023-03-19 17:28] LABS: Base Excess -0.7 mmol/L (-2.0-2.0)
[2023-03-19] MEDS: fentaNYL Drip 2500mCg/250mlNS 250 ML IV SCH (19:52)
[2023-03-20] VITALS (107 sets, daily range): BP systolic 92–151; BP diastolic 34–57; PULSE 44–85; RESP 13–19; TEMP 96.8–99; O2SAT 95–100
[2023-03-20] MEDS: NOREPINEPHRINE 8 MG/250ML KIT 250 ML IV SCH (02:00)
[2023-03-20] MEDS: InsuLIN REG 1unit/0.01ml Soln (100units/ml) SC SCH ×4 (05:40→23:31)
[2023-03-20] MEDS: ACCU-CHEK COMFORT CURVE STRIP VI SCH ×4 (05:41→23:28)
[2023-03-20 05:59] LABS: Chloride 107 mmol/L (98-107); Sodium 140 mmol/L (136-145)
[2023-03-20 06:02] LABS: Anion Gap 9 (5-15); Carbon Dioxide 24 mmol/L (20-30)
[2023-03-20 06:03] LABS: Calcium 8.6 mg/dL (8.7-10.4)
[2023-03-20 06:07] LABS: BUN/Creatinine Ratio 34.3 (10.0-20.0); Blood Urea Nitrogen 37 mg/dL (9-23); Glucose 153 mg/dL (74-106)
[2023-03-20 08:08] LABS: Base Excess -1.5 mmol/L (-2.0-2.0)
[2023-03-20] MEDS ORDERED: Glucerna 1.2 Cal 1Liter BOTTLE GT SCH (08:30)
[2023-03-20] MEDS ORDERED: VANCOMYCIN 500 MG in D5W 5% 100 ML IV SCH (09:00)
[2023-03-20 09:34] LABS: Basophils # (auto) 0 10 ^3/uL (0-0.2); Basophils % (auto) 0.1 % (0.0-2.0); Eosinophils # (auto) 0 10 ^3/uL (0-0.8); Hemoglobin 8.2 g/dL (12.2-16.2); Mean Corpuscular Hemoglobin 26.2 pg (28.0-32.0)
[2023-03-20 09:36] LABS: Lymphocytes # (auto) 0.4 10 ^3/uL (0.4-5.4); Lymphocytes % (auto) 7.4 % (10.0-50.0); Mean Corpuscular Hgb Conc. 31.7 g/dL (32.0-36.0); Mean Corpuscular Volume 82.7 fL (80.0-100.0); Monocytes # (auto) 0.6 10 ^3/uL (0-1.3); Monocytes % (auto) 9.2 % (0.0-12.0); Neutrophils % (auto) 83.3 % (37.0-80.0); Nucleated Red Blood Cells % 0.2 %; Red Blood Cells 3.14 10^6/uL (4.0-5.20); Red Cell Distribution Width 18.3 % (11.8-14.3)
[2023-03-20] MEDS: ASPirin 81 mg TAB PO SCH (10:00)
[2023-03-20] MEDS: AMIODARONE HCL 200 MG TAB PO SCH (10:00)
[2023-03-20] MEDS: FUROSEMIDE 20 MG/2 ML VIAL IV SCH ×2 (10:13→21:48)
[2023-03-20] MEDS: DOCUSATE ORAL LIQUID 100 MG/10 ML UD GT SCH ×2 (10:13→21:47)
[2023-03-20] MEDS: PANTOPRAZOLE 40 MG/10 ML VIAL INJ IV SCH ×2 (10:13→21:47)
[2023-03-20] MEDS: CEFEPIME 1GM/ 50ML 50 ML IV SCH ×2 (10:14→21:48)
[2023-03-20] MEDS: Pro-Stat SF 30ml Vanilla GT SCH (10:27)
[2023-03-20 11:09] LABS: INR 1.24 (0.9-1.15); Partial Thromboplastin Time 29.2 SEC (24.5-34.5); Prothrombin Time 12.8 sec (9.3-11.8)
[2023-03-20] MEDS: FREE WATER GT SCH ×3 (12:30→23:28)
[2023-03-20] MEDS ORDERED: methylPREDNISolone SOD SUCC 40 MG/ML VL IM ONE (13:00)
[2023-03-20] MEDS: fentaNYL Drip 2500mCg/250mlNS 250 ML IV SCH (19:34)
[2023-03-20] MEDS: methylPREDNISolone SOD SUCC 40 MG/ML VL IV SCH (21:47)
[2023-03-21] VITALS (111 sets, daily range): BP systolic 108–166; BP diastolic 33–102; PULSE 44–111; RESP 11–27; TEMP 98.6–99.7; O2SAT 93–99
[2023-03-21] MEDS: NOREPINEPHRINE 8 MG/250ML KIT 250 ML IV SCH (02:00)
[2023-03-21] MEDS: MIDAZOLAM DRIP 50 mg/50mL 50 ML IV SCH ×2 (02:53→20:19)
[2023-03-21] MEDS: fentaNYL Drip 2500mCg/250mlNS 250 ML IV SCH ×3 (03:03→23:13)
[2023-03-21 03:52] LABS: Basophils # (auto) 0 10 ^3/uL (0-0.2); Eosinophils # (auto) 0 10 ^3/uL (0-0.8); Hemoglobin 8.4 g/dL (12.2-16.2); Lymphocytes # (auto) 0.3 10 ^3/uL (0.4-5.4); Lymphocytes % (auto) 5.1 % (10.0-50.0); Monocytes # (auto) 0.2 10 ^3/uL (0-1.3)
[2023-03-21 03:55] LABS: Hematocrit 25.9 % (36.0-46.0); Mean Corpuscular Hemoglobin 26.7 pg (28.0-32.0); Mean Corpuscular Hgb Conc. 32.4 g/dL (32.0-36.0); Mean Corpuscular Volume 82.4 fL (80.0-100.0); Neutrophils % (auto) 90.9 % (37.0-80.0); Red Blood Cells 3.14 10^6/uL (4.0-5.20); Red Cell Distribution Width 18.4 % (11.8-14.3); White Blood Cell 5.5 10^3/uL (4.4-10.8)
[2023-03-21 04:01] LABS: Alanine Aminotransferase 16 U/L (7-40); Alkaline Phosphatase 107 U/L (46-116); Anion Gap 8 (5-15); Calcium 8.3 mg/dL (8.7-10.4); Carbon Dioxide 24 mmol/L (20-30); Chloride 106 mmol/L (98-107); Glucose 169 mg/dL (74-106); Sodium 138 mmol/L (136-145)
[2023-03-21 04:02] LABS: Aspartate Aminotransferase 14 U/L (13-40)
[2023-03-21 04:03] LABS: Albumin 3.1 g/dL (3.2-4.8); Bilirubin, Total 0.2 mg/dL (0.2-1.0); Total Protein 5.8 g/dL (5.7-8.2)
[2023-03-21 04:22] LABS: Blood Urea Nitrogen 49 mg/dL (9-23)
[2023-03-21] MEDS: FREE WATER GT SCH ×4 (05:03→23:28)
[2023-03-21] MEDS: ACCU-CHEK COMFORT CURVE STRIP VI SCH ×4 (05:06→23:27)
[2023-03-21] MEDS: InsuLIN REG 1unit/0.01ml Soln (100units/ml) SC SCH ×4 (05:14→23:28)
[2023-03-21 07:07] LABS: Base Excess -0.6 mmol/L (-2.0-2.0)
[2023-03-21] MEDS: FUROSEMIDE 20 MG/2 ML VIAL IV SCH ×2 (09:33→21:26)
[2023-03-21] MEDS: methylPREDNISolone SOD SUCC 40 MG/ML VL IV SCH ×3 (09:33→21:25)
[2023-03-21] MEDS: AMIODARONE HCL 200 MG TAB PO SCH (09:34)
[2023-03-21] MEDS: DOCUSATE ORAL LIQUID 100 MG/10 ML UD GT SCH ×2 (09:34→21:25)
[2023-03-21] MEDS: PANTOPRAZOLE 40 MG/10 ML VIAL INJ IV SCH ×2 (09:34→21:25)
[2023-03-21] MEDS: ASPirin 81 mg TAB PO SCH (09:48)
[2023-03-21 10:10] LABS: Base Excess -1.6 mmol/L (-2.0-2.0)
[2023-03-21] MEDS: Glucerna 1.2 Cal 1Liter BOTTLE GT SCH (12:03)
[2023-03-21] MEDS: CEFTRIAXONE SODIUM 2 GM in D5W 5% 100 ML IV SCH (12:14)
[2023-03-21] MEDS: ALBUTEROL SULF 2.5 MG/0.5ML(0.5%) NEB SOLN HHN SCH ×2 (15:55→19:48)
[2023-03-21] MEDS: ATORVASTATIN 20 MG TAB PO SCH (21:26)
[2023-03-22] VITALS (116 sets, daily range): BP systolic 91–165; BP diastolic 30–102; PULSE 44–123; RESP 12–26; TEMP 98.1–99.3; O2SAT 93–98
[2023-03-22] MEDS: ALBUTEROL SULF 2.5 MG/0.5ML(0.5%) NEB SOLN HHN SCH ×5 (01:12→23:41)
[2023-03-22] MEDS: NOREPINEPHRINE 8 MG/250ML KIT 250 ML IV SCH (02:00)
[2023-03-22 04:15] LABS: Basophils # (auto) 0 10 ^3/uL (0-0.2); Basophils % (auto) 0.1 % (0.0-2.0); Eosinophils # (auto) 0 10 ^3/uL (0-0.8); Lymphocytes # (auto) 0.3 10 ^3/uL (0.4-5.4); Mean Corpuscular Volume 81.8 fL (80.0-100.0); Monocytes # (auto) 0.3 10 ^3/uL (0-1.3); White Blood Cell 5.7 10^3/uL (4.4-10.8)
[2023-03-22 04:17] LABS: Hematocrit 24.7 % (36.0-46.0); Lymphocytes % (auto) 4.9 % (10.0-50.0); Mean Corpuscular Hemoglobin 26.5 pg (28.0-32.0); Mean Corpuscular Hgb Conc. 32.4 g/dL (32.0-36.0); Monocytes % (auto) 5.8 % (0.0-12.0); Neutrophils # (auto) 5.1 10 ^3/uL (1.6-8.6); Neutrophils % (auto) 89.2 % (37.0-80.0); Red Blood Cells 3.03 10^6/uL (4.0-5.20); Red Cell Distribution Width 18.5 % (11.8-14.3)
[2023-03-22 04:30] LABS: Anion Gap 12 (5-15); Carbon Dioxide 22 mmol/L (20-30); Chloride 105 mmol/L (98-107); Potassium 3.5 mmol/L (3.5-5.1); Sodium 139 mmol/L (136-145)
[2023-03-22 04:31] LABS: Calcium 8.1 mg/dL (8.7-10.4)
[2023-03-22 04:36] LABS: BUN/Creatinine Ratio 41.7 (10.0-20.0); Blood Urea Nitrogen 58 mg/dL (9-23); Glucose 182 mg/dL (74-106)
[2023-03-22] MEDS: FREE WATER GT SCH ×4 (05:06→23:28)
[2023-03-22] MEDS: hydrALAZINE HCL 20 MG/ML VL IV PRN (05:07)
[2023-03-22] MEDS: methylPREDNISolone SOD SUCC 40 MG/ML VL IV SCH ×3 (05:07→21:32)
[2023-03-22] MEDS: ACCU-CHEK COMFORT CURVE STRIP VI SCH ×4 (05:07→23:27)
[2023-03-22] MEDS: InsuLIN REG 1unit/0.01ml Soln (100units/ml) SC SCH ×4 (05:23→23:28)
[2023-03-22 07:35] LABS: Base Excess -0.6 mmol/L (-2.0-2.0)
[2023-03-22] MEDS ORDERED: PROPOFOL 100 ML IV ONE (08:04)
[2023-03-22] MEDS: PROPOFOL 100 ML IV SCH ×3 (08:12→23:11)
[2023-03-22] MEDS: POTASSIUM CHL 20MEQ/100ML 100 ML IV SCH ×2 (09:07→10:37)
[2023-03-22] MEDS: AMIODARONE HCL 200 MG TAB PO SCH (10:00)
[2023-03-22] MEDS: DOCUSATE ORAL LIQUID 100 MG/10 ML UD GT SCH ×2 (10:20→21:31)
[2023-03-22] MEDS: FUROSEMIDE 20 MG/2 ML VIAL IV SCH ×2 (10:21→21:32)
[2023-03-22] MEDS: PANTOPRAZOLE 40 MG/10 ML VIAL INJ IV SCH ×2 (10:21→21:32)
[2023-03-22] MEDS: CEFTRIAXONE SODIUM 2 GM in D5W 5% 100 ML IV SCH (10:21)
[2023-03-22] MEDS: ASPirin 81 mg TAB PO SCH (10:21)
[2023-03-22] MEDS: fentaNYL Drip 2500mCg/250mlNS 250 ML IV SCH (19:40)
[2023-03-22] MEDS: ATORVASTATIN 20 MG TAB PO SCH (21:31)
[2023-03-23] VITALS (100 sets, daily range): BP systolic 84–200; BP diastolic 26–167; PULSE 46–123; RESP 7–23; TEMP 98.2–99.1; O2SAT 86–100
[2023-03-23] MEDS: NOREPINEPHRINE 8 MG/250ML KIT 250 ML IV SCH (02:00)
[2023-03-23 04:42] LABS: Anion Gap 10 (5-15); Carbon Dioxide 22 mmol/L (20-30); Chloride 106 mmol/L (98-107); Potassium 4.3 mmol/L (3.5-5.1); Sodium 138 mmol/L (136-145)
[2023-03-23 04:43] LABS: Calcium 8.7 mg/dL (8.7-10.4)
[2023-03-23 04:48] LABS: BUN/Creatinine Ratio 38.1 (10.0-20.0); Blood Urea Nitrogen 61 mg/dL (9-23); Glucose 180 mg/dL (74-106)
[2023-03-23 04:50] LABS: Hemoglobin 9.4 g/dL (12.2-16.2)
[2023-03-23 04:52] LABS: Hematocrit 30.2 % (36.0-46.0); Mean Corpuscular Hemoglobin 26.2 pg (28.0-32.0); Mean Corpuscular Hgb Conc. 31.1 g/dL (32.0-36.0); Red Blood Cells 3.59 10^6/uL (4.0-5.20); Red Cell Distribution Width 18.7 % (11.8-14.3); White Blood Cell 10.1 10^3/uL (4.4-10.8)
[2023-03-23 04:53] LABS: Band Neutrophils % (manual) 0; Basophils % (manual) 0 (0.0-2.0); Blast Cells 0; Eosinophils % (manual) 0 (0-7); Promyelocytes % 0; Reactive Lymphocytes 0
[2023-03-23] MEDS: MIDAZOLAM DRIP 50 mg/50mL 50 ML IV SCH (05:30)
[2023-03-23] MEDS: ACCU-CHEK COMFORT CURVE STRIP VI SCH ×4 (05:44→23:38)
[2023-03-23] MEDS: FREE WATER GT SCH ×4 (05:45→22:58)
[2023-03-23] MEDS: InsuLIN REG 1unit/0.01ml Soln (100units/ml) SC SCH ×4 (05:45→23:40)
[2023-03-23] MEDS: methylPREDNISolone SOD SUCC 40 MG/ML VL IV SCH ×3 (05:45→22:49)
[2023-03-23] MEDS: PROPOFOL 100 ML IV SCH ×4 (06:12→21:38)
[2023-03-23] MEDS: ALBUTEROL SULF 2.5 MG/0.5ML(0.5%) NEB SOLN HHN SCH ×3 (06:33→18:59)
[2023-03-23 07:12] LABS: Base Excess -2.6 mmol/L (-2.0-2.0)
[2023-03-23 09:07] LABS: Lymphocytes % (manual) 8 (10.0-50.0); Metamyelocytes % 1; Monocytes % (manual) 4 (0-12); Myelocytes % 1; Toxic Granulation Slight
[2023-03-23 09:08] LABS: Platelet Estimate Increased
[2023-03-23] MEDS: ASPirin 81 mg TAB PO SCH (09:46)
[2023-03-23] MEDS: DOCUSATE ORAL LIQUID 100 MG/10 ML UD GT SCH ×2 (09:46→22:48)
[2023-03-23] MEDS: PANTOPRAZOLE 40 MG/10 ML VIAL INJ IV SCH ×2 (09:46→22:48)
[2023-03-23] MEDS: AMIODARONE HCL 200 MG TAB PO SCH (09:46)
[2023-03-23] MEDS: FUROSEMIDE 20 MG/2 ML VIAL IV SCH ×2 (09:46→22:49)
[2023-03-23] MEDS: CEFTRIAXONE SODIUM 2 GM in D5W 5% 100 ML IV SCH (09:49)
[2023-03-23] MEDS: fentaNYL Drip 2500mCg/250mlNS 250 ML IV SCH (12:20)
[2023-03-23] MEDS: ATORVASTATIN 20 MG TAB PO SCH (22:58)
[2023-03-24] VITALS (82 sets, daily range): BP systolic 98–146; BP diastolic 28–85; PULSE 46–129; RESP 10–24; TEMP 97.7–100.2; O2SAT 90–99
[2023-03-24] MEDS: ALBUTEROL SULF 2.5 MG/0.5ML(0.5%) NEB SOLN HHN SCH ×4 (00:17→18:28)
[2023-03-24] MEDS: fentaNYL Drip 2500mCg/250mlNS 250 ML IV SCH ×2 (00:41→16:16)
[2023-03-24] MEDS: NOREPINEPHRINE 8 MG/250ML KIT 250 ML IV SCH (02:00)
[2023-03-24] MEDS: PROPOFOL 100 ML IV SCH ×4 (02:35→23:08)
[2023-03-24 03:59] LABS: Hemoglobin 8.2 g/dL (12.2-16.2)
[2023-03-24 04:01] LABS: Hematocrit 25.8 % (36.0-46.0); Mean Corpuscular Hemoglobin 26.4 pg (28.0-32.0); Mean Corpuscular Hgb Conc. 31.7 g/dL (32.0-36.0); Mean Corpuscular Volume 83.2 fL (80.0-100.0); Red Cell Distribution Width 18.9 % (11.8-14.3); White Blood Cell 10.7 10^3/uL (4.4-10.8)
[2023-03-24 04:08] LABS: Basophils % (manual) 0 (0.0-2.0); Blast Cells 0; Eosinophils % (manual) 0 (0-7); Metamyelocytes % 0; Myelocytes % 0; Promyelocytes % 0; Reactive Lymphocytes 0
[2023-03-24 04:11] LABS: Anion Gap 12 (5-15); Carbon Dioxide 23 mmol/L (20-30); Chloride 103 mmol/L (98-107); Potassium 3.9 mmol/L (3.5-5.1); Sodium 138 mmol/L (136-145)
[2023-03-24 04:12] LABS: Calcium 8.2 mg/dL (8.7-10.4)
[2023-03-24 04:17] LABS: BUN/Creatinine Ratio 43.7 (10.0-20.0); Blood Urea Nitrogen 66 mg/dL (9-23); Glucose 165 mg/dL (74-106)
[2023-03-24 04:28] LABS: Band Neutrophils % (manual) 1; Lymphocytes % (manual) 5 (10.0-50.0); Monocytes % (manual) 4 (0-12); Platelet Estimate Adequate
[2023-03-24] MEDS: MIDAZOLAM DRIP 50 mg/50mL 50 ML IV SCH ×2 (05:30→16:15)
[2023-03-24] MEDS: methylPREDNISolone SOD SUCC 40 MG/ML VL IV SCH ×3 (05:56→21:55)
[2023-03-24] MEDS: FREE WATER GT SCH ×4 (05:56→21:56)
[2023-03-24] MEDS: ACCU-CHEK COMFORT CURVE STRIP VI SCH ×3 (06:02→18:38)
[2023-03-24] MEDS: InsuLIN REG 1unit/0.01ml Soln (100units/ml) SC SCH ×3 (06:04→18:00)
[2023-03-24] MEDS: Glucerna 1.2 Cal 1Liter BOTTLE GT SCH (06:06)
[2023-03-24] MEDS: DOCUSATE ORAL LIQUID 100 MG/10 ML UD GT SCH ×2 (09:30→21:55)
[2023-03-24] MEDS: PANTOPRAZOLE 40 MG/10 ML VIAL INJ IV SCH ×2 (09:30→21:55)
[2023-03-24] MEDS: FUROSEMIDE 20 MG/2 ML VIAL IV SCH ×2 (09:30→21:56)
[2023-03-24] MEDS: ASPirin 81 mg TAB PO SCH (09:30)
[2023-03-24] MEDS: AMIODARONE HCL 200 MG TAB PO SCH (09:31)
[2023-03-24] MEDS: CEFTRIAXONE SODIUM 2 GM in D5W 5% 100 ML IV SCH (09:36)
[2023-03-24] MEDS: ACETAMINOPHEN 325 MG TAB PO PRN (14:46)
[2023-03-24] MEDS: ATORVASTATIN 20 MG TAB PO SCH (21:56)
[2023-03-25] VITALS (82 sets, daily range): BP systolic 123–166; BP diastolic 31–53; PULSE 51–69; RESP 10–21; TEMP 97.7–98.4; O2SAT 92–97
[2023-03-25] MEDS: ALBUTEROL SULF 2.5 MG/0.5ML(0.5%) NEB SOLN HHN SCH ×4 (00:20→18:11)
[2023-03-25] MEDS: InsuLIN REG 1unit/0.01ml Soln (100units/ml) SC SCH ×4 (00:34→18:53)
[2023-03-25] MEDS: ACCU-CHEK COMFORT CURVE STRIP VI SCH ×4 (00:34→18:49)
[2023-03-25] MEDS: NOREPINEPHRINE 8 MG/250ML KIT 250 ML IV SCH (02:00)
[2023-03-25] MEDS: PROPOFOL 100 ML IV SCH ×4 (03:31→20:08)
[2023-03-25 04:08] LABS: Hemoglobin 8.1 g/dL (12.2-16.2)
[2023-03-25 04:12] LABS: Hematocrit 25.2 % (36.0-46.0); Mean Corpuscular Hemoglobin 26.6 pg (28.0-32.0); Mean Corpuscular Hgb Conc. 32.1 g/dL (32.0-36.0); Mean Corpuscular Volume 82.6 fL (80.0-100.0); Red Blood Cells 3.06 10^6/uL (4.0-5.20); Red Cell Distribution Width 18.8 % (11.8-14.3); White Blood Cell 9.8 10^3/uL (4.4-10.8)
[2023-03-25 04:24] LABS: Basophils % (manual) 0 (0.0-2.0); Blast Cells 0; Chloride 103 mmol/L (98-107); Eosinophils % (manual) 0 (0-7); Metamyelocytes % 0; Myelocytes % 0; Potassium 3.4 mmol/L (3.5-5.1); Promyelocytes % 0; Reactive Lymphocytes 0; Sodium 139 mmol/L (136-145)
[2023-03-25 04:25] LABS: Anion Gap 12 (5-15); Calcium 7.9 mg/dL (8.7-10.4); Carbon Dioxide 24 mmol/L (20-30)
[2023-03-25 04:30] LABS: BUN/Creatinine Ratio 49.3 (10.0-20.0); Blood Urea Nitrogen 69 mg/dL (9-23); Glucose 195 mg/dL (74-106)
[2023-03-25 05:15] LABS: Band Neutrophils % (manual) 3; Lymphocytes % (manual) 4 (10.0-50.0); Monocytes % (manual) 3 (0-12); Platelet Estimate Adequate
[2023-03-25] MEDS: FREE WATER GT SCH ×4 (06:11→21:10)
[2023-03-25] MEDS: methylPREDNISolone SOD SUCC 40 MG/ML VL IV SCH ×3 (06:11→21:09)
[2023-03-25] MEDS: MIDAZOLAM DRIP 50 mg/50mL 50 ML IV SCH (06:42)
[2023-03-25] MEDS: AMIODARONE HCL 200 MG TAB PO SCH (10:00)
[2023-03-25] MEDS: DOCUSATE ORAL LIQUID 100 MG/10 ML UD GT SCH ×2 (10:43→21:09)
[2023-03-25] MEDS: ASPirin 81 mg TAB PO SCH (10:44)
[2023-03-25] MEDS: PANTOPRAZOLE 40 MG/10 ML VIAL INJ IV SCH ×2 (10:46→21:09)
[2023-03-25] MEDS: FUROSEMIDE 20 MG/2 ML VIAL IV SCH ×2 (10:49→21:09)
[2023-03-25] MEDS: CEFTRIAXONE SODIUM 2 GM in D5W 5% 100 ML IV SCH (11:01)
[2023-03-25] MEDS: fentaNYL Drip 2500mCg/250mlNS 250 ML IV SCH (14:59)
[2023-03-25] MEDS: ATORVASTATIN 20 MG TAB PO SCH (21:10)
[2023-03-25] MEDS: Glucerna 1.2 Cal 1Liter BOTTLE GT SCH (21:28)
[2023-03-26] VITALS (103 sets, daily range): BP systolic 107–172; BP diastolic 38–69; PULSE 51–105; RESP 12–22; TEMP 98.1–99.9; O2SAT 90–100
[2023-03-26] MEDS: ALBUTEROL SULF 2.5 MG/0.5ML(0.5%) NEB SOLN HHN SCH ×5 (00:07→18:36)
[2023-03-26] MEDS: ACCU-CHEK COMFORT CURVE STRIP VI SCH ×4 (00:16→17:25)
[2023-03-26] MEDS: InsuLIN REG 1unit/0.01ml Soln (100units/ml) SC SCH ×4 (00:18→17:25)
[2023-03-26] MEDS: NOREPINEPHRINE 8 MG/250ML KIT 250 ML IV SCH (02:00)
[2023-03-26] MEDS: PROPOFOL 100 ML IV SCH ×4 (02:05→17:07)
[2023-03-26 04:07] LABS: Basophils # (auto) 0 10 ^3/uL (0-0.2); Eosinophils # (auto) 0 10 ^3/uL (0-0.8); White Blood Cell 11.6 10^3/uL (4.4-10.8)
[2023-03-26 04:19] LABS: Chloride 103 mmol/L (98-107); Potassium 3.4 mmol/L (3.5-5.1); Sodium 141 mmol/L (136-145)
[2023-03-26 04:20] LABS: Anion Gap 9 (5-15); Calcium 8.1 mg/dL (8.5-10.1); Carbon Dioxide 29 mmol/L (20-30)
[2023-03-26 04:25] LABS: BUN/Creatinine Ratio 57.1 (10.0-20.0); Blood Urea Nitrogen 68 mg/dL (9-23); Glucose 151 mg/dL (74-106)
[2023-03-26 04:33] LABS: Hematocrit 26.9 % (36.0-46.0); Hemoglobin 8.3 g/dL (12.2-16.2); Lymphocytes # (auto) 0.2 10 ^3/uL (0.4-5.4); Lymphocytes % (auto) 2.1 % (10.0-50.0); Mean Corpuscular Hemoglobin 25.7 pg (28.0-32.0); Mean Corpuscular Volume 82.8 fL (80.0-100.0); Monocytes # (auto) 0.5 10 ^3/uL (0-1.3); Monocytes % (auto) 4.3 % (0.0-12.0); Neutrophils # (auto) 10.8 10 ^3/uL (1.6-8.6); Neutrophils % (auto) 93.6 % (37.0-80.0); Red Blood Cells 3.25 10^6/uL (4.0-5.20); Red Cell Distribution Width 18.9 % (11.8-14.3)
[2023-03-26] MEDS: FREE WATER GT SCH ×3 (05:11→18:00)
[2023-03-26] MEDS: MIDAZOLAM DRIP 50 mg/50mL 50 ML IV SCH (05:11)
[2023-03-26] MEDS: methylPREDNISolone SOD SUCC 40 MG/ML VL IV SCH ×3 (05:11→22:24)
[2023-03-26] MEDS: hydrALAZINE HCL 20 MG/ML VL IV PRN ×2 (08:08→20:32)
[2023-03-26 08:29] LABS: Base Excess 4.5 mmol/L (-2.0-2.0)
[2023-03-26] MEDS ORDERED: MORPHINE SULFATE INJ 2 MG/ml SYRG IV PRN (08:30)
[2023-03-26] MEDS: AMIODARONE HCL 200 MG TAB PO SCH ×2 (10:00→10:11)
[2023-03-26] MEDS: CEFTRIAXONE SODIUM 2 GM in D5W 5% 100 ML IV SCH (10:10)
[2023-03-26] MEDS: FUROSEMIDE 20 MG/2 ML VIAL IV SCH ×2 (10:10→22:24)
[2023-03-26] MEDS: PANTOPRAZOLE 40 MG/10 ML VIAL INJ IV SCH ×2 (10:10→22:25)
[2023-03-26] MEDS: DOCUSATE ORAL LIQUID 100 MG/10 ML UD GT SCH ×2 (10:11→22:24)
[2023-03-26] MEDS: ASPirin 81 mg TAB PO SCH (10:11)
[2023-03-26] MEDS: fentaNYL Drip 2500mCg/250mlNS 250 ML IV SCH (14:36)
[2023-03-26] MEDS: LACTULOSE 20Gm/30ML SOLN PO SCH (22:24)
[2023-03-26] MEDS: ATORVASTATIN 20 MG TAB PO SCH (22:24)
[2023-03-27] VITALS (106 sets, daily range): BP systolic 78–169; BP diastolic 31–81; PULSE 50–124; RESP 11–26; TEMP 97.3–100.2; O2SAT 92–100
[2023-03-27] MEDS: ALBUTEROL SULF 2.5 MG/0.5ML(0.5%) NEB SOLN HHN SCH ×4 (00:08→18:41)
[2023-03-27] MEDS: ACCU-CHEK COMFORT CURVE STRIP VI SCH ×4 (00:09→18:00)
[2023-03-27] MEDS: FREE WATER GT SCH ×4 (00:09→18:00)
[2023-03-27] MEDS: NOREPINEPHRINE 8 MG/250ML KIT 250 ML IV SCH ×2 (02:00→11:21)
[2023-03-27] MEDS: ACETAMINOPHEN 325 MG TAB PO PRN (03:18)
[2023-03-27 04:11] LABS: Mean Corpuscular Hgb Conc. 31.4 g/dL (32.0-36.0)
[2023-03-27 04:14] LABS: Hematocrit 34.3 % (36.0-46.0); Hemoglobin 10.8 g/dL (12.2-16.2); Mean Corpuscular Hemoglobin 25.9 pg (28.0-32.0); Mean Corpuscular Volume 82.3 fL (80.0-100.0); Red Blood Cells 4.17 10^6/uL (4.0-5.20); Red Cell Distribution Width 19.1 % (11.8-14.3); White Blood Cell 24.8 10^3/uL (4.4-10.8)
[2023-03-27 04:21] LABS: Anion Gap 8 (5-15); Carbon Dioxide 29 mmol/L (20-30); Chloride 102 mmol/L (98-107); Potassium 3.6 mmol/L (3.5-5.1); Sodium 139 mmol/L (136-145)
[2023-03-27 04:22] LABS: Calcium 8.4 mg/dL (8.7-10.4)
[2023-03-27 04:26] LABS: Glucose 161 mg/dL (74-106)
[2023-03-27 04:27] LABS: BUN/Creatinine Ratio 51.8 (10.0-20.0)
[2023-03-27 04:31] LABS: Blood Urea Nitrogen 57 mg/dL (9-23)
[2023-03-27 04:56] LABS: Basophils % (manual) 0 (0.0-2.0); Blast Cells 0; Eosinophils % (manual) 0 (0-7); Metamyelocytes % 0; Myelocytes % 0; Promyelocytes % 0; Reactive Lymphocytes 0
[2023-03-27] MEDS: hydrALAZINE HCL 20 MG/ML VL IV PRN (05:04)
[2023-03-27] MEDS: MIDAZOLAM DRIP 50 mg/50mL 50 ML IV SCH ×2 (05:30→19:16)
[2023-03-27] MEDS: methylPREDNISolone SOD SUCC 40 MG/ML VL IV SCH ×3 (05:57→22:05)
[2023-03-27] MEDS: InsuLIN REG 1unit/0.01ml Soln (100units/ml) SC SCH ×4 (05:59→18:07)
[2023-03-27 06:20] LABS: Band Neutrophils % (manual) 2; Lymphocytes % (manual) 1 (10.0-50.0); Monocytes % (manual) 2 (0-12); Platelet Estimate Increased
[2023-03-27 06:21] LABS: Anisocytosis Slight; Large Platelets FEW; Ovalocytes FEW; Stomatocytes Few
[2023-03-27] MEDS: AMIODARONE HCL 200 MG TAB PO SCH (10:00)
[2023-03-27] MEDS ORDERED: POTASSIUM CHL 20MEQ/100ML 100 ML IV ONE (10:15)
[2023-03-27] MEDS: LINEZOLID 600MG/300ML 300 ML IV SCH ×2 (10:24→22:04)
[2023-03-27] MEDS: PANTOPRAZOLE 40 MG/10 ML VIAL INJ IV SCH ×2 (10:27→22:04)
[2023-03-27] MEDS: ASPirin 81 mg TAB PO SCH (10:29)
[2023-03-27] MEDS: FUROSEMIDE 20 MG/2 ML VIAL IV SCH ×2 (10:29→22:04)
[2023-03-27] MEDS: LACTULOSE 20Gm/30ML SOLN PO SCH ×2 (10:29→22:04)
[2023-03-27] MEDS: DOCUSATE ORAL LIQUID 100 MG/10 ML UD GT SCH ×2 (10:29→22:04)
[2023-03-27 12:17] LABS: Base Excess 3.4 mmol/L (-2.0-2.0)
[2023-03-27] MEDS: MEROPENEM 1GM IVPB 100 ML IV SCH (13:48)
[2023-03-27] MEDS: fentaNYL Drip 2500mCg/250mlNS 250 ML IV SCH (13:50)
[2023-03-27] MEDS: ATORVASTATIN 20 MG TAB PO SCH (22:04)
[2023-03-28] VITALS (110 sets, daily range): BP systolic 92–153; BP diastolic 35–61; PULSE 48–102; RESP 11–21; TEMP 97.5–99; O2SAT 92–97
[2023-03-28] MEDS: ALBUTEROL SULF 2.5 MG/0.5ML(0.5%) NEB SOLN HHN SCH ×3 (00:17→18:47)
[2023-03-28] MEDS: MIDAZOLAM DRIP 50 mg/50mL 50 ML IV SCH (01:15)
[2023-03-28] MEDS: MEROPENEM 1GM IVPB 100 ML IV SCH ×2 (01:16→14:11)
[2023-03-28 04:07] LABS: Red Blood Cells 3.32 10^6/uL (4.0-5.20)
[2023-03-28 04:10] LABS: Hematocrit 27.3 % (36.0-46.0); Hemoglobin 8.7 g/dL (12.2-16.2); Mean Corpuscular Hemoglobin 26.3 pg (28.0-32.0); Mean Corpuscular Hgb Conc. 32.1 g/dL (32.0-36.0); Mean Corpuscular Volume 82.1 fL (80.0-100.0); Red Cell Distribution Width 18.8 % (11.8-14.3)
[2023-03-28 04:14] LABS: Alanine Aminotransferase 12 U/L (7-40); Albumin 2.9 g/dL (3.2-4.8); Alkaline Phosphatase 80 U/L (46-116); Anion Gap 9 (5-15); Aspartate Aminotransferase 8 U/L (13-40); Blood Urea Nitrogen 62 mg/dL (9-23); Calcium 7.9 mg/dL (8.7-10.4); Carbon Dioxide 29 mmol/L (20-30); Chloride 103 mmol/L (98-107); Glucose 161 mg/dL (74-106); Potassium 3.5 mmol/L (3.5-5.1); Sodium 141 mmol/L (136-145)
[2023-03-28 04:15] LABS: Basophils % (manual) 0 (0.0-2.0); Bilirubin, Total 0.2 mg/dL (0.2-1.0); Blast Cells 0; Eosinophils % (manual) 0 (0-7); Metamyelocytes % 0; Myelocytes % 0; Promyelocytes % 0; Reactive Lymphocytes 0; Total Protein 4.9 g/dL (5.7-8.2)
[2023-03-28] MEDS: FREE WATER GT SCH ×4 (05:34→17:27)
[2023-03-28] MEDS: methylPREDNISolone SOD SUCC 40 MG/ML VL IV SCH ×3 (05:34→22:37)
[2023-03-28] MEDS: ACCU-CHEK COMFORT CURVE STRIP VI SCH ×4 (05:35→17:49)
[2023-03-28] MEDS: fentaNYL Drip 2500mCg/250mlNS 250 ML IV SCH ×2 (05:38→22:49)
[2023-03-28] MEDS: InsuLIN REG 1unit/0.01ml Soln (100units/ml) SC SCH ×4 (05:47→17:28)
[2023-03-28 06:31] LABS: Anisocytosis Slight; Band Neutrophils % (manual) 1; Lymphocytes % (manual) 3 (10.0-50.0); Monocytes % (manual) 4 (0-12); Platelet Estimate Adequate
[2023-03-28 06:32] LABS: Large Platelets FEW; Ovalocytes FEW
[2023-03-28] MEDS: PROPOFOL 100 ML IV SCH (08:00)
[2023-03-28 08:06] LABS: Base Excess 4.6 mmol/L (-2.0-2.0)
[2023-03-28] MEDS: LINEZOLID 600MG/300ML 300 ML IV SCH ×2 (10:25→22:35)
[2023-03-28] MEDS: PANTOPRAZOLE 40 MG/10 ML VIAL INJ IV SCH ×2 (10:26→22:37)
[2023-03-28] MEDS: LACTULOSE 20Gm/30ML SOLN PO SCH (10:26)
[2023-03-28] MEDS: DOCUSATE ORAL LIQUID 100 MG/10 ML UD GT SCH ×2 (10:26→22:00)
[2023-03-28] MEDS: ASPirin 81 mg TAB PO SCH (10:26)
[2023-03-28] MEDS: AMIODARONE HCL 200 MG TAB PO SCH (10:26)
[2023-03-28] MEDS: ATORVASTATIN 20 MG TAB PO SCH (22:37)
[2023-03-29] VITALS (108 sets, daily range): BP systolic 124–183; BP diastolic 45–99; PULSE 55–129; RESP 16–41; TEMP 98.4–99.9; O2SAT 91–100
[2023-03-29] MEDS: FREE WATER GT SCH ×5 (00:22→22:42)
[2023-03-29] MEDS: ACCU-CHEK COMFORT CURVE STRIP VI SCH ×4 (00:23→17:34)
[2023-03-29] MEDS: ALBUTEROL SULF 2.5 MG/0.5ML(0.5%) NEB SOLN HHN SCH ×4 (00:32→18:10)
[2023-03-29] MEDS: NOREPINEPHRINE 8 MG/250ML KIT 250 ML IV SCH (01:12)
[2023-03-29] MEDS: MEROPENEM 1GM IVPB 100 ML IV SCH ×2 (02:24→14:16)
[2023-03-29 04:02] LABS: Hemoglobin 9.2 g/dL (12.2-16.2)
[2023-03-29 04:04] LABS: Hematocrit 28.9 % (36.0-46.0); Mean Corpuscular Hemoglobin 25.9 pg (28.0-32.0); Mean Corpuscular Hgb Conc. 31.7 g/dL (32.0-36.0); Mean Corpuscular Volume 81.6 fL (80.0-100.0); Red Blood Cells 3.55 10^6/uL (4.0-5.20); Red Cell Distribution Width 18.4 % (11.8-14.3)
[2023-03-29 04:06] LABS: Chloride 102 mmol/L (98-107); Potassium 3.4 mmol/L (3.5-5.1); Sodium 139 mmol/L (136-145)
[2023-03-29 04:07] LABS: Anion Gap 7 (5-15); Calcium 8.1 mg/dL (8.7-10.4); Carbon Dioxide 30 mmol/L (20-30)
[2023-03-29 04:12] LABS: BUN/Creatinine Ratio 48.6 (10.0-20.0); Glucose 201 mg/dL (74-106)
[2023-03-29 04:13] LABS: Basophils % (manual) 0 (0.0-2.0); Blast Cells 0; Blood Urea Nitrogen 52 mg/dL (9-23); Eosinophils % (manual) 0 (0-7); Myelocytes % 0; Promyelocytes % 0; Reactive Lymphocytes 0
[2023-03-29] MEDS: methylPREDNISolone SOD SUCC 40 MG/ML VL IV SCH ×3 (05:16→21:27)
[2023-03-29] MEDS: InsuLIN REG 1unit/0.01ml Soln (100units/ml) SC SCH ×4 (05:18→17:37)
[2023-03-29] MEDS: MIDAZOLAM DRIP 50 mg/50mL 50 ML IV SCH (05:30)
[2023-03-29 07:36] LABS: Band Neutrophils % (manual) 8; Lymphocytes % (manual) 1 (10.0-50.0); Metamyelocytes % 1; Monocytes % (manual) 6 (0-12); Platelet Estimate Adequate
[2023-03-29 07:49] LABS: Base Excess 6.6 mmol/L (-2.0-2.0)
[2023-03-29] MEDS: PROPOFOL 100 ML IV SCH (08:00)
[2023-03-29] MEDS: hydrALAZINE HCL 20 MG/ML VL IV PRN ×2 (08:15→21:59)
[2023-03-29] MEDS: ASPirin 81 mg TAB PO SCH (08:22)
[2023-03-29] MEDS: DOCUSATE ORAL LIQUID 100 MG/10 ML UD GT SCH (08:23)
[2023-03-29] MEDS: LACTULOSE 20Gm/30ML SOLN PO PRN (08:23)
[2023-03-29] MEDS: AMIODARONE HCL 200 MG TAB PO SCH (08:23)
[2023-03-29] MEDS: PANTOPRAZOLE 40 MG/10 ML VIAL INJ IV SCH ×2 (09:41→21:27)
[2023-03-29] MEDS: POTASSIUM CHL 20MEQ/100ML 100 ML IV SCH ×2 (09:41→10:35)
[2023-03-29] MEDS: LINEZOLID 600MG/300ML 300 ML IV SCH ×2 (09:42→21:27)
[2023-03-29] MEDS: FUROSEMIDE 40 MG/4 ML VIAL IV SCH (10:30)
[2023-03-29] MEDS ORDERED: methylPREDNISolone SOD SUCC 40 MG/ML VL IV ONE (11:00)
[2023-03-29] MEDS ORDERED: EPINEPHrine HCL 0.5 ML NEB NEB ONE (11:15)
[2023-03-29] MEDS ORDERED: dilTIAZem 25 MG/5 ML VIAL IV ONE (12:15)
[2023-03-29] MEDS ORDERED: LABETALOL HCL 5 MG/ML 4ML SYRINGE IV PRN (17:15)
[2023-03-29] MEDS: LABETALOL HCL 5 MG/ML 4ML SYRINGE IV PRN (18:19)
[2023-03-29] MEDS: CARVEDILOL 3.125 MG TAB PO SCH (22:00)
[2023-03-29] MEDS: ATORVASTATIN 20 MG TAB PO SCH (22:00)
[2023-03-30] VITALS (85 sets, daily range): BP systolic 106–166; BP diastolic 33–78; PULSE 56–127; RESP 13–30; TEMP 98–98.8; O2SAT 82–100
[2023-03-30] MEDS: ACCU-CHEK COMFORT CURVE STRIP VI SCH ×5 (00:13→23:51)
[2023-03-30] MEDS: InsuLIN REG 1unit/0.01ml Soln (100units/ml) SC SCH ×4 (00:15→17:30)
[2023-03-30] MEDS: ALBUTEROL SULF 2.5 MG/0.5ML(0.5%) NEB SOLN HHN SCH ×4 (00:18→18:29)
[2023-03-30] MEDS: MEROPENEM 1GM IVPB 100 ML IV SCH ×2 (02:41→14:31)
[2023-03-30] MEDS: FREE WATER GT SCH ×4 (02:41→23:52)
[2023-03-30 03:53] LABS: Hemoglobin 9.9 g/dL (12.2-16.2)
[2023-03-30 03:56] LABS: Hematocrit 30.5 % (36.0-46.0); Mean Corpuscular Hemoglobin 26.4 pg (28.0-32.0); Mean Corpuscular Hgb Conc. 32.3 g/dL (32.0-36.0); Mean Corpuscular Volume 81.7 fL (80.0-100.0); Red Blood Cells 3.73 10^6/uL (4.0-5.20); Red Cell Distribution Width 18.8 % (11.8-14.3); White Blood Cell 12.9 10^3/uL (4.4-10.8)
[2023-03-30 04:01] LABS: Band Neutrophils % (manual) 0; Basophils % (manual) 0 (0.0-2.0); Blast Cells 0; Eosinophils % (manual) 0 (0-7); Metamyelocytes % 0; Myelocytes % 0; Promyelocytes % 0; Reactive Lymphocytes 0
[2023-03-30 04:29] LABS: Calcium 8.7 mg/dL (8.7-10.4); Chloride 105 mmol/L (98-107); Potassium 3.5 mmol/L (3.5-5.1); Sodium 140 mmol/L (136-145)
[2023-03-30 04:30] LABS: Anion Gap 7 (5-15); Carbon Dioxide 28 mmol/L (20-30)
[2023-03-30 04:35] LABS: Glucose 150 mg/dL (74-106)
[2023-03-30 04:36] LABS: BUN/Creatinine Ratio 51.8 (10.0-20.0); Blood Urea Nitrogen 57 mg/dL (9-23); Magnesium 2.1 mg/dL (1.6-2.6)
[2023-03-30 05:03] LABS: Lymphocytes % (manual) 1 (10.0-50.0); Monocytes % (manual) 3 (0-12); Platelet Estimate Adequate
[2023-03-30] MEDS: EMPAGLIFLOZIN 10 MG TAB PO SCH (05:23)
[2023-03-30] MEDS: methylPREDNISolone SOD SUCC 40 MG/ML VL IV SCH ×3 (05:45→21:46)
[2023-03-30] MEDS: ALBUTEROL SULF 2.5 MG/0.5ML(0.5%) NEB SOLN NEB PRN (09:15)
[2023-03-30] MEDS: AMIODARONE HCL 200 MG TAB PO SCH (09:46)
[2023-03-30] MEDS: ASPirin 81 mg TAB PO SCH (09:46)
[2023-03-30] MEDS: CARVEDILOL 3.125 MG TAB PO SCH ×2 (09:46→21:46)
[2023-03-30] MEDS: FUROSEMIDE 40 MG/4 ML VIAL IV SCH (09:51)
[2023-03-30] MEDS: PANTOPRAZOLE 40 MG/10 ML VIAL INJ IV SCH ×2 (09:51→21:46)
[2023-03-30] MEDS: LINEZOLID 600MG/300ML 300 ML IV SCH ×2 (09:52→21:46)
[2023-03-30] MEDS: FLUCONAZOLE 200MG/100ML 100 ML IV SCH (11:09)
[2023-03-30] MEDS: LORazepam 2MG/ML-1ML VIAL IV PRN (12:22)
[2023-03-30] MEDS ORDERED: ROCURONIUM 10MG/ML 10ML VIAL IV ONE ×2 (12:30→12:31)
[2023-03-30] MEDS ORDERED: ETOMIDATE (2MG/ML) 20ML VIAL IV ONE ×2 (12:30)
[2023-03-30] MEDS ORDERED: fentaNYL Drip 2500mCg/250mlNS 250 ML IV ONE (12:32)
[2023-03-30] MEDS ORDERED: MIDAZOLAM DRIP 50 mg/50mL 50 ML IV ONE (12:32)
[2023-03-30] MEDS: NOREPINEPHRINE 8 MG/250ML KIT 250 ML IV SCH (13:00)
[2023-03-30] MEDS: MIDAZOLAM DRIP 50 mg/50mL 50 ML IV SCH (13:00)
[2023-03-30] MEDS: fentaNYL Drip 2500mCg/250mlNS 250 ML IV SCH (13:00)
[2023-03-30] MEDS ORDERED: FUROSEMIDE 40 MG/4 ML VIAL IV ONE (13:15)
[2023-03-30] MEDS ORDERED: POTASSIUM CHL 20MEQ/100ML 100 ML IV ONE (13:15)
[2023-03-30 14:17] LABS: Base Excess 4.5 mmol/L (-2.0-2.0)
[2023-03-30 19:25] LABS: Base Excess 2.2 mmol/L (-2.0-2.0)
[2023-03-30] MEDS: ATORVASTATIN 20 MG TAB PO SCH (21:46)
[2023-03-31] VITALS (111 sets, daily range): BP systolic 118–165; BP diastolic 28–107; PULSE 44–83; RESP 15–22; TEMP 96.9–99; O2SAT 96–100
[2023-03-31] MEDS: ALBUTEROL SULF 2.5 MG/0.5ML(0.5%) NEB SOLN HHN SCH ×4 (00:19→18:34)
[2023-03-31] MEDS: InsuLIN REG 1unit/0.01ml Soln (100units/ml) SC SCH ×4 (00:22→17:25)
[2023-03-31] MEDS: MEROPENEM 1GM IVPB 100 ML IV SCH ×3 (02:06→23:34)
[2023-03-31 03:55] LABS: Hemoglobin 8.9 g/dL (12.2-16.2); Mean Corpuscular Volume 82.3 fL (80.0-100.0); Red Cell Distribution Width 18.3 % (11.8-14.3)
[2023-03-31 03:57] LABS: Hematocrit 27.4 % (36.0-46.0); Mean Corpuscular Hemoglobin 26.7 pg (28.0-32.0); Mean Corpuscular Hgb Conc. 32.4 g/dL (32.0-36.0); Red Blood Cells 3.32 10^6/uL (4.0-5.20)
[2023-03-31 04:02] LABS: Band Neutrophils % (manual) 0; Basophils % (manual) 0 (0.0-2.0); Blast Cells 0; Calcium 8.4 mg/dL (8.7-10.4); Chloride 107 mmol/L (98-107); Eosinophils % (manual) 0 (0-7); Metamyelocytes % 0; Myelocytes % 0; Potassium 3.6 mmol/L (3.5-5.1); Promyelocytes % 0; Reactive Lymphocytes 0; Sodium 144 mmol/L (136-145)
[2023-03-31 04:03] LABS: Anion Gap 9 (5-15); Carbon Dioxide 28 mmol/L (20-30)
[2023-03-31 04:08] LABS: BUN/Creatinine Ratio 50.5 (10.0-20.0); Blood Urea Nitrogen 52 mg/dL (9-23); Glucose 181 mg/dL (74-106)
[2023-03-31 04:29] LABS: Lymphocytes % (manual) 2 (10.0-50.0); Monocytes % (manual) 1 (0-12); Platelet Estimate Adequate
[2023-03-31] MEDS: methylPREDNISolone SOD SUCC 40 MG/ML VL IV SCH ×3 (05:36→21:20)
[2023-03-31] MEDS: ACCU-CHEK COMFORT CURVE STRIP VI SCH ×3 (05:36→17:23)
[2023-03-31] MEDS: EMPAGLIFLOZIN 10 MG TAB PO SCH (05:36)
[2023-03-31] MEDS: FREE WATER GT SCH ×3 (05:36→17:26)
[2023-03-31 08:06] LABS: Base Excess 6.8 mmol/L (-2.0-2.0)
[2023-03-31] MEDS: FLUCONAZOLE 200MG/100ML 100 ML IV SCH (08:08)
[2023-03-31] MEDS: LINEZOLID 600MG/300ML 300 ML IV SCH ×2 (09:26→21:20)
[2023-03-31] MEDS: FUROSEMIDE 40 MG/4 ML VIAL IV SCH (09:26)
[2023-03-31] MEDS: PANTOPRAZOLE 40 MG/10 ML VIAL INJ IV SCH ×2 (09:26→21:20)
[2023-03-31] MEDS: ASPirin 81 mg TAB PO SCH (09:27)
[2023-03-31] MEDS: AMIODARONE HCL 200 MG TAB PO SCH (09:27)
[2023-03-31] MEDS: CARVEDILOL 3.125 MG TAB PO SCH ×2 (09:27→21:20)
[2023-03-31] MEDS: NOREPINEPHRINE 8 MG/250ML KIT 250 ML IV SCH (13:00)
[2023-03-31] MEDS: fentaNYL Drip 2500mCg/250mlNS 250 ML IV SCH (13:21)
[2023-03-31] MEDS: MIDAZOLAM DRIP 50 mg/50mL 50 ML IV SCH (13:21)
[2023-03-31] MEDS: ATORVASTATIN 20 MG TAB PO SCH (21:20)
[2023-04-01] VITALS (112 sets, daily range): BP systolic 114–178; BP diastolic 39–68; PULSE 49–101; RESP 14–19; TEMP 97.5–98.9; O2SAT 92–100
[2023-04-01] MEDS: FREE WATER GT SCH ×4 (00:25→17:27)
[2023-04-01] MEDS: MIDAZOLAM DRIP 50 mg/50mL 50 ML IV SCH ×3 (00:25→22:36)
[2023-04-01] MEDS: ACCU-CHEK COMFORT CURVE STRIP VI SCH ×4 (00:25→17:18)
[2023-04-01] MEDS: ALBUTEROL SULF 2.5 MG/0.5ML(0.5%) NEB SOLN HHN SCH ×4 (00:28→18:23)
[2023-04-01] MEDS: InsuLIN REG 1unit/0.01ml Soln (100units/ml) SC SCH ×4 (00:31→17:21)
[2023-04-01 04:22] LABS: Hemoglobin 8.7 g/dL (12.2-16.2)
[2023-04-01 04:25] LABS: Hematocrit 27.1 % (36.0-46.0); Mean Corpuscular Hemoglobin 26.4 pg (28.0-32.0); Mean Corpuscular Hgb Conc. 32.2 g/dL (32.0-36.0); Mean Corpuscular Volume 81.9 fL (80.0-100.0); Red Blood Cells 3.31 10^6/uL (4.0-5.20); Red Cell Distribution Width 18.5 % (11.8-14.3); White Blood Cell 7.8 10^3/uL (4.4-10.8)
[2023-04-01 04:32] LABS: Anion Gap 8 (5-15); Carbon Dioxide 30 mmol/L (20-30); Chloride 105 mmol/L (98-107); Potassium 3.5 mmol/L (3.5-5.1); Sodium 143 mmol/L (136-145)
[2023-04-01 04:33] LABS: Calcium 8.4 mg/dL (8.7-10.4)
[2023-04-01 04:38] LABS: BUN/Creatinine Ratio 55.8 (10.0-20.0); Blood Urea Nitrogen 53 mg/dL (9-23); Glucose 178 mg/dL (74-106)
[2023-04-01 04:41] LABS: Basophils % (manual) 0 (0.0-2.0); Blast Cells 0; Eosinophils % (manual) 0 (0-7); Metamyelocytes % 0; Myelocytes % 0; Promyelocytes % 0; Reactive Lymphocytes 0
[2023-04-01] MEDS: methylPREDNISolone SOD SUCC 40 MG/ML VL IV SCH ×3 (05:41→21:12)
[2023-04-01] MEDS: MEROPENEM 1GM IVPB 100 ML IV SCH (05:41)
[2023-04-01] MEDS: EMPAGLIFLOZIN 10 MG TAB PO SCH (05:46)
[2023-04-01] MEDS: FLUCONAZOLE 200MG/100ML 100 ML IV SCH (08:24)
[2023-04-01 09:10] LABS: Anisocytosis Slight; Band Neutrophils % (manual) 1; Lymphocytes % (manual) 2 (10.0-50.0); Monocytes % (manual) 3 (0-12); Platelet Estimate Adequate
[2023-04-01] MEDS: PANTOPRAZOLE 40 MG/10 ML VIAL INJ IV SCH ×2 (09:27→21:12)
[2023-04-01] MEDS: ASPirin 81 mg TAB PO SCH (09:27)
[2023-04-01] MEDS: AMIODARONE HCL 200 MG TAB PO SCH (09:27)
[2023-04-01] MEDS: LINEZOLID 600MG/300ML 300 ML IV SCH (09:27)
[2023-04-01] MEDS: FUROSEMIDE 40 MG/4 ML VIAL IV SCH (09:27)
[2023-04-01] MEDS: CARVEDILOL 3.125 MG TAB PO SCH ×2 (09:28→21:13)
[2023-04-01] MEDS: NOREPINEPHRINE 8 MG/250ML KIT 250 ML IV SCH (13:00)
[2023-04-01] MEDS: fentaNYL Drip 2500mCg/250mlNS 250 ML IV SCH ×2 (13:00→17:22)
[2023-04-01] MEDS: ATORVASTATIN 20 MG TAB PO SCH (21:12)
[2023-04-02] VITALS (110 sets, daily range): BP systolic 118–176; BP diastolic 38–77; PULSE 52–95; RESP 12–20; TEMP 98.1–99.1; O2SAT 92–100
[2023-04-02] MEDS: FREE WATER GT SCH ×5 (00:15→23:28)
[2023-04-02] MEDS: ACCU-CHEK COMFORT CURVE STRIP VI SCH ×5 (00:15→23:30)
[2023-04-02] MEDS: InsuLIN REG 1unit/0.01ml Soln (100units/ml) SC SCH ×5 (00:20→23:30)
[2023-04-02] MEDS: ALBUTEROL SULF 2.5 MG/0.5ML(0.5%) NEB SOLN HHN SCH ×4 (00:37→18:39)
[2023-04-02 04:10] LABS: Hemoglobin 9.3 g/dL (12.2-16.2)
[2023-04-02 04:13] LABS: Hematocrit 29.2 % (36.0-46.0); Mean Corpuscular Hemoglobin 26.2 pg (28.0-32.0); Red Blood Cells 3.56 10^6/uL (4.0-5.20); Red Cell Distribution Width 18.4 % (11.8-14.3)
[2023-04-02 04:27] LABS: Anion Gap 8 (5-15); Carbon Dioxide 29 mmol/L (20-30); Chloride 105 mmol/L (98-107); Potassium 3.5 mmol/L (3.5-5.1); Sodium 142 mmol/L (136-145)
[2023-04-02 04:28] LABS: Calcium 8.3 mg/dL (8.7-10.4)
[2023-04-02 04:33] LABS: BUN/Creatinine Ratio 54.3 (10.0-20.0); Blood Urea Nitrogen 50 mg/dL (9-23); Glucose 197 mg/dL (74-106)
[2023-04-02 04:50] LABS: Band Neutrophils % (manual) 0; Basophils % (manual) 0 (0.0-2.0); Blast Cells 0; Eosinophils % (manual) 0 (0-7); Lymphocytes % (manual) 0 (10.0-50.0); Metamyelocytes % 0; Myelocytes % 0; Promyelocytes % 0; Reactive Lymphocytes 0
[2023-04-02] MEDS: methylPREDNISolone SOD SUCC 40 MG/ML VL IV SCH ×3 (05:03→22:08)
[2023-04-02] MEDS: EMPAGLIFLOZIN 10 MG TAB PO SCH (05:03)
[2023-04-02 07:17] LABS: Base Excess 6.1 mmol/L (-2.0-2.0)
[2023-04-02] MEDS: MIDAZOLAM DRIP 50 mg/50mL 50 ML IV SCH ×2 (07:38→16:09)
[2023-04-02] MEDS: FLUCONAZOLE 200MG/100ML 100 ML IV SCH (08:13)
[2023-04-02 09:22] LABS: Monocytes % (manual) 1 (0-12); Platelet Estimate Adequate
[2023-04-02] MEDS: CEFTRIAXONE SODIUM 2 GM in D5W 5% 100 ML IV SCH (09:29)
[2023-04-02] MEDS: AMIODARONE HCL 200 MG TAB PO SCH (09:30)
[2023-04-02] MEDS: ASPirin 81 mg TAB PO SCH (09:30)
[2023-04-02] MEDS: FUROSEMIDE 40 MG/4 ML VIAL IV SCH (09:30)
[2023-04-02] MEDS: PANTOPRAZOLE 40 MG/10 ML VIAL INJ IV SCH ×2 (09:30→22:05)
[2023-04-02] MEDS: CARVEDILOL 3.125 MG TAB PO SCH ×2 (09:46→22:00)
[2023-04-02] MEDS: hydrALAZINE HCL 20 MG/ML VL IV PRN (11:28)
[2023-04-02] MEDS: NOREPINEPHRINE 8 MG/250ML KIT 250 ML IV SCH (13:00)
[2023-04-02] MEDS ORDERED: FUROSEMIDE 40 MG/4 ML VIAL IV ONE (16:00)
[2023-04-02] MEDS: fentaNYL Drip 2500mCg/250mlNS 250 ML IV SCH (20:20)
[2023-04-02] MEDS: ATORVASTATIN 20 MG TAB PO SCH (22:06)
[2023-04-03] VITALS (107 sets, daily range): BP systolic 136–182; BP diastolic 46–84; PULSE 52–86; RESP 13–20; TEMP 97.9–99.3; O2SAT 93–100
[2023-04-03] MEDS: ALBUTEROL SULF 2.5 MG/0.5ML(0.5%) NEB SOLN HHN SCH ×4 (00:25→17:59)
[2023-04-03] MEDS: hydrALAZINE HCL 20 MG/ML VL IV PRN ×2 (02:01→17:38)
[2023-04-03 04:21] LABS: Chloride 107 mmol/L (98-107); Potassium 3.6 mmol/L (3.5-5.1); Sodium 146 mmol/L (136-145)
[2023-04-03 04:22] LABS: Anion Gap 5 (5-15); Calcium 8.5 mg/dL (8.5-10.1); Carbon Dioxide 34 mmol/L (20-30)
[2023-04-03 04:27] LABS: BUN/Creatinine Ratio 63.2 (10.0-20.0); Blood Urea Nitrogen 55 mg/dL (9-23); Glucose 133 mg/dL (74-106)
[2023-04-03 04:34] LABS: Hemoglobin 9.3 g/dL (12.2-16.2); White Blood Cell 9.6 10^3/uL (4.4-10.8)
[2023-04-03 04:35] LABS: Hematocrit 28.7 % (36.0-46.0); Mean Corpuscular Hemoglobin 26.7 pg (28.0-32.0); Mean Corpuscular Hgb Conc. 32.5 g/dL (32.0-36.0); Mean Corpuscular Volume 82.1 fL (80.0-100.0); Red Cell Distribution Width 18.3 % (11.8-14.3)
[2023-04-03 04:45] LABS: Band Neutrophils % (manual) 0; Basophils % (manual) 0 (0.0-2.0); Blast Cells 0; Eosinophils % (manual) 0 (0-7); Promyelocytes % 0; Reactive Lymphocytes 0
[2023-04-03] MEDS: FREE WATER GT SCH ×3 (05:18→17:48)
[2023-04-03] MEDS: methylPREDNISolone SOD SUCC 40 MG/ML VL IV SCH ×3 (05:18→20:59)
[2023-04-03] MEDS: MIDAZOLAM DRIP 50 mg/50mL 50 ML IV SCH ×3 (05:18→17:37)
[2023-04-03] MEDS: InsuLIN REG 1unit/0.01ml Soln (100units/ml) SC SCH ×4 (05:21→23:13)
[2023-04-03] MEDS: ACCU-CHEK COMFORT CURVE STRIP VI SCH ×4 (05:22→23:10)
[2023-04-03] MEDS: EMPAGLIFLOZIN 10 MG TAB PO SCH (06:59)
[2023-04-03 07:03] LABS: Lymphocytes % (manual) 2 (10.0-50.0); Metamyelocytes % 1; Monocytes % (manual) 2 (0-12); Myelocytes % 1
[2023-04-03 07:04] LABS: Platelet Estimate Adequate
[2023-04-03] MEDS: CEFTRIAXONE SODIUM 2 GM in D5W 5% 100 ML IV SCH (09:42)
[2023-04-03] MEDS: ASPirin 81 mg TAB PO SCH (09:42)
[2023-04-03] MEDS: PANTOPRAZOLE 40 MG/10 ML VIAL INJ IV SCH ×2 (09:42→20:59)
[2023-04-03] MEDS: AMIODARONE HCL 200 MG TAB PO SCH (09:43)
[2023-04-03] MEDS: FUROSEMIDE 40 MG/4 ML VIAL IV SCH (09:44)
[2023-04-03] MEDS: CARVEDILOL 3.125 MG TAB PO SCH ×2 (09:44→21:00)
[2023-04-03] MEDS: FLUCONAZOLE 200MG/100ML 100 ML IV SCH (09:44)
[2023-04-03] MEDS: NOREPINEPHRINE 8 MG/250ML KIT 250 ML IV SCH (13:00)
[2023-04-03] MEDS: FUROSEMIDE 20 MG TAB PO SCH (17:36)
[2023-04-03] MEDS: fentaNYL Drip 2500mCg/250mlNS 250 ML IV SCH (17:48)
[2023-04-03] MEDS: ATORVASTATIN 20 MG TAB PO SCH (21:00)
[2023-04-04] VITALS (106 sets, daily range): BP systolic 134–180; BP diastolic 43–71; PULSE 54–81; RESP 12–18; TEMP 98.2–99.3; O2SAT 92–100
[2023-04-04] MEDS: ALBUTEROL SULF 2.5 MG/0.5ML(0.5%) NEB SOLN HHN SCH ×4 (00:30→18:41)
[2023-04-04] MEDS: FREE WATER GT SCH ×5 (00:31→22:11)
[2023-04-04 04:05] LABS: Basophils # (auto) 0 10 ^3/uL (0-0.2); Basophils % (auto) 0.2 % (0.0-2.0); Eosinophils # (auto) 0 10 ^3/uL (0-0.8); Hematocrit 28.7 % (36.0-46.0); Hemoglobin 9.2 g/dL (12.2-16.2); Lymphocytes # (auto) 0.1 10 ^3/uL (0.4-5.4); Lymphocytes % (auto) 1.4 % (10.0-50.0); Mean Corpuscular Hemoglobin 26.3 pg (28.0-32.0); Mean Corpuscular Hgb Conc. 32.1 g/dL (32.0-36.0); Mean Corpuscular Volume 81.7 fL (80.0-100.0); Monocytes # (auto) 0.2 10 ^3/uL (0-1.3); Monocytes % (auto) 1.5 % (0.0-12.0); Neutrophils # (auto) 9.5 10 ^3/uL (1.6-8.6); Neutrophils % (auto) 96.9 % (37.0-80.0); Nucleated Red Blood Cells % 0.1 %; Red Blood Cells 3.51 10^6/uL (4.0-5.20); Red Cell Distribution Width 18.4 % (11.8-14.3); White Blood Cell 9.8 10^3/uL (4.4-10.8)
[2023-04-04 04:08] LABS: Anion Gap 5 (5-15); Carbon Dioxide 36 mmol/L (20-30); Chloride 106 mmol/L (98-107); Potassium 3.9 mmol/L (3.5-5.1); Sodium 147 mmol/L (136-145)
[2023-04-04 04:09] LABS: Calcium 8.2 mg/dL (8.7-10.4)
[2023-04-04] MEDS: MIDAZOLAM DRIP 50 mg/50mL 50 ML IV SCH ×2 (04:13→17:56)
[2023-04-04 04:14] LABS: BUN/Creatinine Ratio 71.6 (10.0-20.0); Blood Urea Nitrogen 58 mg/dL (9-23); Glucose 157 mg/dL (74-106)
[2023-04-04] MEDS: hydrALAZINE HCL 20 MG/ML VL IV PRN ×2 (04:16→18:30)
[2023-04-04] MEDS: methylPREDNISolone SOD SUCC 40 MG/ML VL IV SCH (05:17)
[2023-04-04] MEDS: FUROSEMIDE 20 MG TAB PO SCH (05:18)
[2023-04-04] MEDS: ACCU-CHEK COMFORT CURVE STRIP VI SCH ×4 (05:18→23:56)
[2023-04-04] MEDS: InsuLIN REG 1unit/0.01ml Soln (100units/ml) SC SCH ×4 (05:24→23:58)
[2023-04-04] MEDS: EMPAGLIFLOZIN 10 MG TAB PO SCH (06:31)
[2023-04-04 07:33] LABS: Base Excess 6.8 mmol/L (-2.0-2.0)
[2023-04-04] MEDS: CEFTRIAXONE SODIUM 2 GM in D5W 5% 100 ML IV SCH (09:25)
[2023-04-04] MEDS: PANTOPRAZOLE 40 MG/10 ML VIAL INJ IV SCH ×2 (09:51→22:08)
[2023-04-04] MEDS: ASPirin 81 mg TAB PO SCH (09:51)
[2023-04-04] MEDS: CARVEDILOL 3.125 MG TAB PO SCH (09:52)
[2023-04-04] MEDS: AMIODARONE HCL 200 MG TAB PO SCH (09:52)
[2023-04-04] MEDS: NOREPINEPHRINE 8 MG/250ML KIT 250 ML IV SCH (13:00)
[2023-04-04] MEDS: fentaNYL Drip 2500mCg/250mlNS 250 ML IV SCH (14:01)
[2023-04-04] MEDS ORDERED: FUROSEMIDE 20 MG/2 ML VIAL IV ONE (21:00)
[2023-04-04] MEDS: ATORVASTATIN 20 MG TAB PO SCH (22:08)
[2023-04-04 23:37] LABS: Hemoglobin 8.9 g/dL (12.2-16.2)
[2023-04-04 23:38] LABS: Hematocrit 28.5 % (36.0-46.0)
[2023-04-04 23:44] LABS: Potassium 3.8 mmol/L (3.5-5.1)
[2023-04-05] VITALS (99 sets, daily range): BP systolic 110–174; BP diastolic 28–78; PULSE 51–74; RESP 13–17; TEMP 97.9–99.3; O2SAT 92–100
[2023-04-05] MEDS: CARVEDILOL 3.125 MG TAB PO SCH ×3 (00:17→21:06)
[2023-04-05] MEDS: ALBUTEROL SULF 2.5 MG/0.5ML(0.5%) NEB SOLN HHN SCH ×4 (00:22→18:40)
[2023-04-05] MEDS: MIDAZOLAM DRIP 50 mg/50mL 50 ML IV SCH ×2 (03:27→17:14)
[2023-04-05 04:11] LABS: Basophils # (auto) 0 10 ^3/uL (0-0.2); Eosinophils # (auto) 0 10 ^3/uL (0-0.8); Eosinophils % (auto) 0.1 % (0.0-7.0); Monocytes # (auto) 0.3 10 ^3/uL (0-1.3); Red Cell Distribution Width 18.7 % (11.8-14.3); White Blood Cell 10.8 10^3/uL (4.4-10.8)
[2023-04-05 04:13] LABS: Basophils % (auto) 0.1 % (0.0-2.0); Lymphocytes # (auto) 0.5 10 ^3/uL (0.4-5.4); Lymphocytes % (auto) 4.2 % (10.0-50.0); Mean Corpuscular Hemoglobin 26.4 pg (28.0-32.0); Mean Corpuscular Volume 82.5 fL (80.0-100.0); Monocytes % (auto) 2.7 % (0.0-12.0); Neutrophils % (auto) 92.9 % (37.0-80.0)
[2023-04-05 04:24] LABS: Chloride 106 mmol/L (98-107); Potassium 3.7 mmol/L (3.5-5.1); Sodium 148 mmol/L (136-145)
[2023-04-05 04:25] LABS: Anion Gap 4 (5-15); Calcium 7.9 mg/dL (8.7-10.4); Carbon Dioxide 38 mmol/L (20-30)
[2023-04-05 04:30] LABS: Blood Urea Nitrogen 57 mg/dL (9-23); Glucose 125 mg/dL (74-106)
[2023-04-05] MEDS: Glucerna 1.2 Cal 1Liter BOTTLE GT SCH (04:45)
[2023-04-05] MEDS: InsuLIN REG 1unit/0.01ml Soln (100units/ml) SC SCH ×3 (05:10→17:49)
[2023-04-05] MEDS: ACCU-CHEK COMFORT CURVE STRIP VI SCH ×3 (05:10→17:45)
[2023-04-05] MEDS: FREE WATER GT SCH ×3 (05:11→17:59)
[2023-04-05] MEDS: fentaNYL Drip 2500mCg/250mlNS 250 ML IV SCH ×2 (05:18→21:02)
[2023-04-05] MEDS: EMPAGLIFLOZIN 10 MG TAB PO SCH (06:12)
[2023-04-05 09:43] LABS: Base Excess 10.6 mmol/L (-2.0-2.0)
[2023-04-05] MEDS: PANTOPRAZOLE 40 MG/10 ML VIAL INJ IV SCH ×2 (09:48→21:02)
[2023-04-05] MEDS: CEFTRIAXONE SODIUM 2 GM in D5W 5% 100 ML IV SCH (09:49)
[2023-04-05] MEDS: methylPREDNISolone SOD SUCC 40 MG/ML VL IV SCH (09:50)
[2023-04-05] MEDS: ASPirin 81 mg TAB PO SCH (09:50)
[2023-04-05] MEDS: FUROSEMIDE 20 MG TAB PO SCH (12:08)
[2023-04-05] MEDS: NOREPINEPHRINE 8 MG/250ML KIT 250 ML IV SCH (13:00)
[2023-04-05] MEDS: ATORVASTATIN 20 MG TAB PO SCH (21:02)
[2023-04-06] VITALS (118 sets, daily range): BP systolic 118–171; BP diastolic 46–83; PULSE 54–77; RESP 8–20; TEMP 98.2–99.3; O2SAT 92–100
[2023-04-06] MEDS: FREE WATER GT SCH ×4 (00:13→18:10)
[2023-04-06] MEDS: ACCU-CHEK COMFORT CURVE STRIP VI SCH ×4 (00:13→18:10)
[2023-04-06] MEDS: ALBUTEROL SULF 2.5 MG/0.5ML(0.5%) NEB SOLN HHN SCH ×4 (00:14→18:37)
[2023-04-06] MEDS: InsuLIN REG 1unit/0.01ml Soln (100units/ml) SC SCH ×4 (00:15→18:14)
[2023-04-06] MEDS: Glucerna 1.2 Cal 1Liter BOTTLE GT SCH (02:56)
[2023-04-06 03:53] LABS: Basophils # (auto) 0 10 ^3/uL (0-0.2); Eosinophils # (auto) 0 10 ^3/uL (0-0.8); Eosinophils % (auto) 0.1 % (0.0-7.0); Hematocrit 27.9 % (36.0-46.0); Lymphocytes # (auto) 0.3 10 ^3/uL (0.4-5.4); Monocytes # (auto) 0.3 10 ^3/uL (0-1.3); Nucleated Red Blood Cells % 0.1 %
[2023-04-06 03:56] LABS: Basophils % (auto) 0.2 % (0.0-2.0); Hemoglobin 8.9 g/dL (12.2-16.2); Lymphocytes % (auto) 2.8 % (10.0-50.0); Mean Corpuscular Hemoglobin 26.4 pg (28.0-32.0); Mean Corpuscular Hgb Conc. 31.9 g/dL (32.0-36.0); Mean Corpuscular Volume 82.7 fL (80.0-100.0); Monocytes % (auto) 3.3 % (0.0-12.0); Neutrophils # (auto) 8.4 10 ^3/uL (1.6-8.6); Neutrophils % (auto) 93.6 % (37.0-80.0); Red Blood Cells 3.37 10^6/uL (4.0-5.20); Red Cell Distribution Width 18.2 % (11.8-14.3)
[2023-04-06 04:07] LABS: Alanine Aminotransferase 30 U/L (7-40); Alkaline Phosphatase 94 U/L (46-116); Anion Gap 6 (5-15); BUN/Creatinine Ratio 67.6 (10.0-20.0); Calcium 7.9 mg/dL (8.7-10.4); Carbon Dioxide 36 mmol/L (20-30); Chloride 104 mmol/L (98-107); Glucose 135 mg/dL (74-106); Potassium 4.2 mmol/L (3.5-5.1); Sodium 146 mmol/L (136-145)
[2023-04-06 04:08] LABS: Albumin 2.6 g/dL (3.2-4.8); Aspartate Aminotransferase 24 U/L (13-40)
[2023-04-06 04:09] LABS: Bilirubin, Total 0.2 mg/dL (0.2-1.0); Total Protein 4.6 g/dL (5.7-8.2)
[2023-04-06 04:10] LABS: Blood Urea Nitrogen 46 mg/dL (9-23)
[2023-04-06] MEDS: EMPAGLIFLOZIN 10 MG TAB PO SCH (06:00)
[2023-04-06] MEDS: MIDAZOLAM DRIP 50 mg/50mL 50 ML IV SCH (06:19)
[2023-04-06 09:11] LABS: Base Excess 9.7 mmol/L (-2.0-2.0)
[2023-04-06] MEDS: CARVEDILOL 3.125 MG TAB PO SCH ×2 (09:23→21:54)
[2023-04-06] MEDS: PANTOPRAZOLE 40 MG/10 ML VIAL INJ IV SCH ×2 (09:43→21:54)
[2023-04-06] MEDS: CEFTRIAXONE SODIUM 2 GM in D5W 5% 100 ML IV SCH (09:43)
[2023-04-06] MEDS: methylPREDNISolone SOD SUCC 40 MG/ML VL IV SCH (09:43)
[2023-04-06] MEDS: ASPirin 81 mg TAB PO SCH (09:43)
[2023-04-06] MEDS: FUROSEMIDE 20 MG TAB PO SCH (09:44)
[2023-04-06] MEDS: fentaNYL Drip 2500mCg/250mlNS 250 ML IV SCH (09:45)
[2023-04-06] MEDS: NOREPINEPHRINE 8 MG/250ML KIT 250 ML IV SCH (12:41)
[2023-04-06] MEDS: ATORVASTATIN 20 MG TAB PO SCH (21:54)
[2023-04-07] VITALS (119 sets, daily range): BP systolic 104–169; BP diastolic 43–66; PULSE 52–86; RESP 12–21; TEMP 97.9–99.3; O2SAT 91–100
[2023-04-07] MEDS: ACCU-CHEK COMFORT CURVE STRIP VI SCH ×5 (00:03→23:23)
[2023-04-07] MEDS: fentaNYL Drip 2500mCg/250mlNS 250 ML IV SCH ×2 (00:04→10:02)
[2023-04-07] MEDS: FREE WATER GT SCH ×5 (00:07→23:23)
[2023-04-07] MEDS: InsuLIN REG 1unit/0.01ml Soln (100units/ml) SC SCH ×5 (00:07→23:29)
[2023-04-07] MEDS: ALBUTEROL SULF 2.5 MG/0.5ML(0.5%) NEB SOLN HHN SCH ×4 (00:22→18:42)
[2023-04-07 03:49] LABS: Basophils # (auto) 0 10 ^3/uL (0-0.2); Eosinophils # (auto) 0 10 ^3/uL (0-0.8); Eosinophils % (auto) 0.4 % (0.0-7.0); Monocytes # (auto) 0.3 10 ^3/uL (0-1.3); Red Cell Distribution Width 18.2 % (11.8-14.3)
[2023-04-07 03:51] LABS: Basophils % (auto) 0.2 % (0.0-2.0); Hemoglobin 8.6 g/dL (12.2-16.2); Lymphocytes # (auto) 0.4 10 ^3/uL (0.4-5.4); Lymphocytes % (auto) 5.3 % (10.0-50.0); Mean Corpuscular Hemoglobin 26.9 pg (28.0-32.0); Mean Corpuscular Volume 81.4 fL (80.0-100.0); Monocytes % (auto) 3.4 % (0.0-12.0); Neutrophils # (auto) 7.6 10 ^3/uL (1.6-8.6); Neutrophils % (auto) 90.7 % (37.0-80.0); Red Blood Cells 3.19 10^6/uL (4.0-5.20); White Blood Cell 8.4 10^3/uL (4.4-10.8)
[2023-04-07 04:05] LABS: Alanine Aminotransferase 30 U/L (7-40); Albumin 2.5 g/dL (3.2-4.8); Alkaline Phosphatase 87 U/L (46-116); Anion Gap 6 (5-15); Aspartate Aminotransferase 26 U/L (13-40); BUN/Creatinine Ratio 66.7 (10.0-20.0); Bilirubin, Total 0.3 mg/dL (0.2-1.0); Blood Urea Nitrogen 40 mg/dL (9-23); Calcium 7.7 mg/dL (8.7-10.4); Carbon Dioxide 34 mmol/L (20-30); Chloride 104 mmol/L (98-107); Glucose 103 mg/dL (74-106); Sodium 144 mmol/L (136-145); Total Protein 4.4 g/dL (5.7-8.2)
[2023-04-07] MEDS: MIDAZOLAM DRIP 50 mg/50mL 50 ML IV SCH ×3 (06:18→23:23)
[2023-04-07] MEDS: EMPAGLIFLOZIN 10 MG TAB PO SCH (06:19)
[2023-04-07] MEDS: NOREPINEPHRINE 8 MG/250ML KIT 250 ML IV SCH (07:34)
[2023-04-07 08:23] LABS: Base Excess 10.2 mmol/L (-2.0-2.0)
[2023-04-07] MEDS: CARVEDILOL 3.125 MG TAB PO SCH ×3 (10:00→22:00)
[2023-04-07] MEDS: FUROSEMIDE 20 MG TAB PO SCH (10:00)
[2023-04-07] MEDS: ASPirin 81 mg TAB PO SCH (10:00)
[2023-04-07] MEDS: PANTOPRAZOLE 40 MG/10 ML VIAL INJ IV SCH ×2 (10:00→22:02)
[2023-04-07] MEDS: methylPREDNISolone SOD SUCC 40 MG/ML VL IV SCH (10:00)
[2023-04-07] MEDS: CEFTRIAXONE SODIUM 2 GM in D5W 5% 100 ML IV SCH (10:16)
[2023-04-07] MEDS: LACTULOSE 20Gm/30ML SOLN PO PRN (10:17)
[2023-04-07] MEDS: ATORVASTATIN 20 MG TAB PO SCH (22:02)
[2023-04-08] VITALS (116 sets, daily range): BP systolic 112–174; BP diastolic 49–80; PULSE 52–89; RESP 6–23; TEMP 97.7–99.5; O2SAT 94–99
[2023-04-08] MEDS: ALBUTEROL SULF 2.5 MG/0.5ML(0.5%) NEB SOLN HHN SCH ×4 (00:13→18:25)
[2023-04-08 04:35] LABS: Basophils # (auto) 0 10 ^3/uL (0-0.2); Eosinophils # (auto) 0 10 ^3/uL (0-0.8); Eosinophils % (auto) 0.2 % (0.0-7.0); Lymphocytes # (auto) 0.3 10 ^3/uL (0.4-5.4); Red Blood Cells 3.01 10^6/uL (4.0-5.20)
[2023-04-08 04:38] LABS: Hematocrit 24.4 % (36.0-46.0); Hemoglobin 7.9 g/dL (12.2-16.2); Lymphocytes % (auto) 4.5 % (10.0-50.0); Mean Corpuscular Hemoglobin 26.2 pg (28.0-32.0); Mean Corpuscular Hgb Conc. 32.2 g/dL (32.0-36.0); Mean Corpuscular Volume 81.2 fL (80.0-100.0); Monocytes # (auto) 0.2 10 ^3/uL (0-1.3); Monocytes % (auto) 3.4 % (0.0-12.0); Neutrophils # (auto) 6.2 10 ^3/uL (1.6-8.6); Neutrophils % (auto) 91.9 % (37.0-80.0); White Blood Cell 6.8 10^3/uL (4.4-10.8)
[2023-04-08 04:40] LABS: Partial Thromboplastin Time 23.6 SEC (24.5-34.5)
[2023-04-08 04:48] LABS: Chloride 104 mmol/L (98-107); Potassium 4.1 mmol/L (3.5-5.1); Sodium 143 mmol/L (136-145)
[2023-04-08 04:49] LABS: Anion Gap 4 (5-15); Calcium 7.8 mg/dL (8.5-10.1); Carbon Dioxide 35 mmol/L (20-30)
[2023-04-08 04:54] LABS: BUN/Creatinine Ratio 57.4 (10.0-20.0); Blood Urea Nitrogen 35 mg/dL (9-23); Glucose 100 mg/dL (74-106)
[2023-04-08] MEDS: EMPAGLIFLOZIN 10 MG TAB PO SCH (05:21)
[2023-04-08] MEDS: fentaNYL Drip 2500mCg/250mlNS 250 ML IV SCH ×3 (05:21→18:42)
[2023-04-08] MEDS: FREE WATER GT SCH ×3 (05:24→18:07)
[2023-04-08 05:49] LABS: INR 1.03 (0.9-1.15)
[2023-04-08] MEDS: ACCU-CHEK COMFORT CURVE STRIP VI SCH ×3 (05:52→18:06)
[2023-04-08] MEDS: InsuLIN REG 1unit/0.01ml Soln (100units/ml) SC SCH ×3 (05:52→18:05)
[2023-04-08] MEDS ORDERED: LIDOCAINE W/ EPINEPHRINE 1% 20ML VIAL ONE (06:49)
[2023-04-08] MEDS ORDERED: BUPIVACAINE HCL 0.25% P/F 10 ML VIAL ONE (06:49)
[2023-04-08] MEDS ORDERED: fentaNYL CITRATE 100 MCG/2 ML VL ONE (09:15)
[2023-04-08] MEDS ORDERED: HYDROmorphone HCL 2 MG/ML VL/or syr ONE (09:15)
[2023-04-08] MEDS ORDERED: MIDAZOLAM HCL 2MG/2ML 2ml VIAL (1mg/ml) ONE (09:15)
[2023-04-08] MEDS ORDERED: PROPOFOL 10 MG/ML 20 ML IV ONE (09:40)
[2023-04-08] MEDS ORDERED: ROCURONIUM 10MG/ML 10ML VIAL IV ONE (09:41)
[2023-04-08] MEDS: CARVEDILOL 3.125 MG TAB PO SCH ×2 (10:00→22:00)
[2023-04-08] MEDS: ASPirin 81 mg TAB PO SCH (10:00)
[2023-04-08] MEDS: CEFTRIAXONE SODIUM 2 GM in D5W 5% 100 ML IV SCH (10:40)
[2023-04-08] MEDS: PANTOPRAZOLE 40 MG/10 ML VIAL INJ IV SCH ×2 (11:57→22:06)
[2023-04-08] MEDS: methylPREDNISolone SOD SUCC 40 MG/ML VL IV SCH (11:57)
[2023-04-08] MEDS: FUROSEMIDE 20 MG TAB PO SCH (11:58)
[2023-04-08 12:19] LABS: Base Excess 6.6 mmol/L (-2.0-2.0)
[2023-04-08] MEDS: NOREPINEPHRINE 8 MG/250ML KIT 250 ML IV SCH (13:00)
[2023-04-08] MEDS: Glucerna 1.2 Cal 1Liter BOTTLE GT SCH (13:44)
[2023-04-08] MEDS: MIDAZOLAM DRIP 50 mg/50mL 50 ML IV SCH (15:07)
[2023-04-08] MEDS: ATORVASTATIN 20 MG TAB PO SCH (22:06)
[2023-04-09] VITALS (99 sets, daily range): BP systolic 80–164; BP diastolic 41–83; PULSE 51–125; RESP 14–26; TEMP 97.9–100.2; O2SAT 95–100
[2023-04-09] MEDS: ALBUTEROL SULF 2.5 MG/0.5ML(0.5%) NEB SOLN HHN SCH ×4 (00:13→18:38)
[2023-04-09 04:06] LABS: Basophils # (auto) 0 10 ^3/uL (0-0.2); Eosinophils # (auto) 0 10 ^3/uL (0-0.8); Hematocrit 25.6 % (36.0-46.0); Hemoglobin 8.2 g/dL (12.2-16.2); Lymphocytes # (auto) 0.2 10 ^3/uL (0.4-5.4); Lymphocytes % (auto) 3.4 % (10.0-50.0); Mean Corpuscular Hemoglobin 26.3 pg (28.0-32.0); Mean Corpuscular Hgb Conc. 32.1 g/dL (32.0-36.0); Mean Corpuscular Volume 81.8 fL (80.0-100.0); Monocytes # (auto) 0.2 10 ^3/uL (0-1.3); Monocytes % (auto) 2.8 % (0.0-12.0); Neutrophils # (auto) 6.6 10 ^3/uL (1.6-8.6); Neutrophils % (auto) 93.8 % (37.0-80.0); Red Blood Cells 3.13 10^6/uL (4.0-5.20); Red Cell Distribution Width 18.1 % (11.8-14.3)
[2023-04-09 04:22] LABS: Alanine Aminotransferase 31 U/L (7-40); Alkaline Phosphatase 86 U/L (46-116); Anion Gap 8 (5-15); BUN/Creatinine Ratio 51.5 (10.0-20.0); Blood Urea Nitrogen 34 mg/dL (9-23); Calcium 7.5 mg/dL (8.7-10.4); Carbon Dioxide 31 mmol/L (20-30); Chloride 102 mmol/L (98-107); Glucose 143 mg/dL (74-106); Potassium 4.2 mmol/L (3.5-5.1); Sodium 141 mmol/L (136-145)
[2023-04-09 04:23] LABS: Albumin 2.6 g/dL (3.2-4.8); Aspartate Aminotransferase 27 U/L (13-40); Bilirubin, Total 0.3 mg/dL (0.2-1.0); Total Protein 4.5 g/dL (5.7-8.2)
[2023-04-09] MEDS: ACCU-CHEK COMFORT CURVE STRIP VI SCH ×4 (05:56→18:07)
[2023-04-09] MEDS: MIDAZOLAM DRIP 50 mg/50mL 50 ML IV SCH ×2 (05:57→08:00)
[2023-04-09] MEDS: EMPAGLIFLOZIN 10 MG TAB PO SCH (05:58)
[2023-04-09] MEDS: Glucerna 1.2 Cal 1Liter BOTTLE GT SCH (05:58)
[2023-04-09] MEDS: FREE WATER GT SCH ×4 (05:58→18:26)
[2023-04-09] MEDS: InsuLIN REG 1unit/0.01ml Soln (100units/ml) SC SCH ×4 (06:03→18:10)
[2023-04-09 06:12] LABS: Base Excess 3.5 mmol/L (-2.0-2.0)
[2023-04-09] MEDS: fentaNYL Drip 2500mCg/250mlNS 250 ML IV SCH (08:00)
[2023-04-09] MEDS: CEFTRIAXONE SODIUM 2 GM in D5W 5% 100 ML IV SCH (09:44)
[2023-04-09] MEDS: methylPREDNISolone SOD SUCC 40 MG/ML VL IV SCH (09:45)
[2023-04-09] MEDS: FUROSEMIDE 20 MG TAB PO SCH (09:46)
[2023-04-09] MEDS: CARVEDILOL 3.125 MG TAB PO SCH ×2 (09:46→22:01)
[2023-04-09] MEDS: PANTOPRAZOLE 40 MG/10 ML VIAL INJ IV SCH ×2 (09:46→22:00)
[2023-04-09] MEDS: ASPirin 81 mg TAB PO SCH (09:47)
[2023-04-09] MEDS: hydrALAZINE HCL 20 MG/ML VL IV PRN (11:49)
[2023-04-09] MEDS: NOREPINEPHRINE 8 MG/250ML KIT 250 ML IV SCH (13:00)
[2023-04-09] MEDS: LABETALOL HCL 5 MG/ML 4ML SYRINGE IV PRN (15:23)
[2023-04-09] MEDS: ATORVASTATIN 20 MG TAB PO SCH (22:01)
[2023-04-10] VITALS (101 sets, daily range): BP systolic 97–206; BP diastolic 41–102; PULSE 55–107; RESP 10–28; TEMP 98.4–99.5; O2SAT 93–100
[2023-04-10] MEDS: ALBUTEROL SULF 2.5 MG/0.5ML(0.5%) NEB SOLN HHN SCH ×4 (00:14→18:46)
[2023-04-10] MEDS: ACCU-CHEK COMFORT CURVE STRIP VI SCH ×5 (00:23→23:07)
[2023-04-10] MEDS: FREE WATER GT SCH ×5 (00:23→23:08)
[2023-04-10 02:54] LABS: Basophils # (auto) 0 10 ^3/uL (0-0.2); Eosinophils # (auto) 0 10 ^3/uL (0-0.8); Hemoglobin 9.4 g/dL (12.2-16.2); Lymphocytes # (auto) 0.6 10 ^3/uL (0.4-5.4)
[2023-04-10 03:01] LABS: Basophils % (auto) 0.3 % (0.0-2.0); Hematocrit 29.8 % (36.0-46.0); Lymphocytes % (auto) 5.3 % (10.0-50.0); Mean Corpuscular Hemoglobin 25.9 pg (28.0-32.0); Mean Corpuscular Hgb Conc. 31.7 g/dL (32.0-36.0); Mean Corpuscular Volume 81.8 fL (80.0-100.0); Monocytes # (auto) 0.5 10 ^3/uL (0-1.3); Monocytes % (auto) 4.4 % (0.0-12.0); Neutrophils # (auto) 10.8 10 ^3/uL (1.6-8.6); Nucleated Red Blood Cells % 0.1 %; Red Blood Cells 3.65 10^6/uL (4.0-5.20); Red Cell Distribution Width 18.6 % (11.8-14.3)
[2023-04-10 03:06] LABS: Anion Gap 9 (5-15); Carbon Dioxide 29 mmol/L (20-30); Chloride 100 mmol/L (98-107); Potassium 3.8 mmol/L (3.5-5.1); Sodium 138 mmol/L (136-145)
[2023-04-10 03:08] LABS: Calcium 7.7 mg/dL (8.7-10.4)
[2023-04-10 03:13] LABS: BUN/Creatinine Ratio 47.9 (10.0-20.0); Blood Urea Nitrogen 35 mg/dL (9-23)
[2023-04-10 03:25] LABS: Glucose 109 mg/dL (74-106)
[2023-04-10] MEDS: hydrALAZINE HCL 20 MG/ML VL IV PRN (04:02)
[2023-04-10] MEDS: InsuLIN REG 1unit/0.01ml Soln (100units/ml) SC SCH ×5 (06:36→23:06)
[2023-04-10] MEDS: fentaNYL Drip 2500mCg/250mlNS 250 ML IV SCH (07:33)
[2023-04-10] MEDS: EMPAGLIFLOZIN 10 MG TAB PO SCH (07:35)
[2023-04-10] MEDS: LABETALOL HCL 5 MG/ML 4ML SYRINGE IV PRN (07:35)
[2023-04-10] MEDS: ASPirin 81 mg TAB PO SCH (09:42)
[2023-04-10] MEDS: FUROSEMIDE 20 MG TAB PO SCH (09:43)
[2023-04-10] MEDS: LISINOPRIL 5 MG TAB GT SCH (09:43)
[2023-04-10] MEDS: CARVEDILOL 3.125 MG TAB PO SCH ×3 (09:44→20:40)
[2023-04-10] MEDS: CEFTRIAXONE SODIUM 2 GM in D5W 5% 100 ML IV SCH (09:44)
[2023-04-10] MEDS: methylPREDNISolone SOD SUCC 40 MG/ML VL IV SCH (10:36)
[2023-04-10] MEDS: PANTOPRAZOLE 40 MG/10 ML VIAL INJ IV SCH ×2 (10:37→21:08)
[2023-04-10] MEDS: AMIODARONE HCL 200 MG TAB PO SCH (10:44)
[2023-04-10] MEDS: MIDAZOLAM DRIP 50 mg/50mL 50 ML IV SCH (13:00)
[2023-04-10] MEDS: Glucerna 1.2 Cal 1Liter BOTTLE GT SCH (17:37)
[2023-04-10] MEDS: ATORVASTATIN 20 MG TAB PO SCH (21:08)
[2023-04-11] VITALS (57 sets, daily range): BP systolic 71–177; BP diastolic 31–96; PULSE 52–102; RESP 12–44; TEMP 98–99; O2SAT 96–100
[2023-04-11] MEDS: ALBUTEROL SULF 2.5 MG/0.5ML(0.5%) NEB SOLN HHN SCH ×4 (00:02→20:21)
[2023-04-11] MEDS ORDERED: NOREPINEPHRINE 8 MG/250ML KIT 250 ML IV ONE (00:51)
[2023-04-11] MEDS: NOREPINEPHRINE 8 MG/250ML KIT 250 ML IV SCH (01:00)
[2023-04-11] MEDS: fentaNYL Drip 2500mCg/250mlNS 250 ML IV SCH (02:09)
[2023-04-11] MEDS: FREE WATER GT SCH ×3 (05:39→17:43)
[2023-04-11] MEDS: ACCU-CHEK COMFORT CURVE STRIP VI SCH ×3 (05:40→17:42)
[2023-04-11] MEDS: InsuLIN REG 1unit/0.01ml Soln (100units/ml) SC SCH ×3 (05:50→17:53)
[2023-04-11 08:31] LABS: Base Excess 6.4 mmol/L (-2.0-2.0)
[2023-04-11] MEDS: EMPAGLIFLOZIN 10 MG TAB PO SCH (09:04)
[2023-04-11] MEDS: CARVEDILOL 3.125 MG TAB PO SCH ×2 (10:25→22:42)
[2023-04-11] MEDS: LISINOPRIL 5 MG TAB GT SCH (10:25)
[2023-04-11] MEDS: ASPirin 81 mg TAB PO SCH (10:26)
[2023-04-11] MEDS: methylPREDNISolone SOD SUCC 40 MG/ML VL IV SCH (10:26)
[2023-04-11] MEDS: CEFTRIAXONE SODIUM 2 GM in D5W 5% 100 ML IV SCH (10:26)
[2023-04-11] MEDS: PANTOPRAZOLE 40 MG/10 ML VIAL INJ IV SCH ×2 (10:26→22:41)
[2023-04-11] MEDS: FUROSEMIDE 20 MG TAB PO SCH (10:26)
[2023-04-11] MEDS: AMIODARONE HCL 200 MG TAB PO SCH (10:26)
[2023-04-11 11:08] LABS: Basophils # (auto) 0 10 ^3/uL (0-0.2); Basophils % (auto) 0.1 % (0.0-2.0); Eosinophils # (auto) 0 10 ^3/uL (0-0.8); Lymphocytes # (auto) 0.6 10 ^3/uL (0.4-5.4); Monocytes # (auto) 0.5 10 ^3/uL (0-1.3); Red Blood Cells 3.35 10^6/uL (4.0-5.20)
[2023-04-11 11:10] LABS: Hematocrit 27.5 % (36.0-46.0); Lymphocytes % (auto) 7.2 % (10.0-50.0); Mean Corpuscular Hemoglobin 26.8 pg (28.0-32.0); Mean Corpuscular Hgb Conc. 32.7 g/dL (32.0-36.0); Mean Corpuscular Volume 82.2 fL (80.0-100.0); Monocytes % (auto) 5.6 % (0.0-12.0); Neutrophils # (auto) 7.5 10 ^3/uL (1.6-8.6); Neutrophils % (auto) 87.1 % (37.0-80.0); Nucleated Red Blood Cells % 0.1 %; Red Cell Distribution Width 18.7 % (11.8-14.3); White Blood Cell 8.6 10^3/uL (4.4-10.8)
[2023-04-11 11:21] LABS: Chloride 101 mmol/L (98-107); Potassium 3.5 mmol/L (3.5-5.1); Sodium 138 mmol/L (136-145)
[2023-04-11 11:22] LABS: Anion Gap 5 (5-15); Carbon Dioxide 32 mmol/L (20-30)
[2023-04-11 11:27] LABS: BUN/Creatinine Ratio 46.2 (10.0-20.0); Blood Urea Nitrogen 36 mg/dL (9-23); Glucose 138 mg/dL (74-106)
[2023-04-11] MEDS: MIDAZOLAM DRIP 50 mg/50mL 50 ML IV SCH (13:00)
[2023-04-11] MEDS ORDERED: LORazepam 2MG/ML-1ML VIAL IV PRN (14:30)
[2023-04-11] MEDS: MORPHINE SULFATE INJ 2 MG/ml SYRG IV PRN ×2 (14:46→19:50)
[2023-04-11] MEDS ORDERED: POTASSIUM EFFERVESENT TAB 25 MEQ GT ONE (17:00)
[2023-04-11] MEDS: hydrALAZINE HCL 20 MG/ML VL IV PRN (19:11)
[2023-04-11] MEDS: ATORVASTATIN 20 MG TAB PO SCH (22:42)
[2023-04-12] VITALS (68 sets, daily range): BP systolic 89–167; BP diastolic 38–85; PULSE 57–94; RESP 8–22; TEMP 97.9–99.3; O2SAT 93–100
[2023-04-12] MEDS: FREE WATER GT SCH ×5 (00:11→20:18)
[2023-04-12] MEDS: ALBUTEROL SULF 2.5 MG/0.5ML(0.5%) NEB SOLN HHN SCH ×5 (00:47→23:48)
[2023-04-12] MEDS: NOREPINEPHRINE 8 MG/250ML KIT 250 ML IV SCH ×2 (01:00→19:21)
[2023-04-12] MEDS: InsuLIN REG 1unit/0.01ml Soln (100units/ml) SC SCH ×4 (05:51→18:00)
[2023-04-12] MEDS: ACCU-CHEK COMFORT CURVE STRIP VI SCH ×4 (05:51→18:00)
[2023-04-12] MEDS: EMPAGLIFLOZIN 10 MG TAB PO SCH (06:48)
[2023-04-12] MEDS ORDERED: Glucerna 1.2 Cal 1Liter BOTTLE GT SCH (08:45)
[2023-04-12] MEDS: methylPREDNISolone SOD SUCC 40 MG/ML VL IV SCH (10:10)
[2023-04-12] MEDS: PANTOPRAZOLE 40 MG/10 ML VIAL INJ IV SCH ×2 (10:10→20:17)
[2023-04-12] MEDS: ASPirin 81 mg TAB PO SCH (10:10)
[2023-04-12] MEDS: POTASSIUM EFFERVESENT TAB 25 MEQ PO SCH (10:10)
[2023-04-12] MEDS: AMIODARONE HCL 200 MG TAB PO SCH (10:11)
[2023-04-12] MEDS: CARVEDILOL 3.125 MG TAB PO SCH ×2 (10:11→20:18)
[2023-04-12] MEDS: FUROSEMIDE 20 MG TAB PO SCH (10:11)
[2023-04-12] MEDS: LISINOPRIL 5 MG TAB GT SCH (10:11)
[2023-04-12] MEDS: MIDAZOLAM DRIP 50 mg/50mL 50 ML IV SCH (10:12)
[2023-04-12 11:01] LABS: Base Excess 6.5 mmol/L (-2.0-2.0)
[2023-04-12] MEDS: fentaNYL Drip 2500mCg/250mlNS 250 ML IV SCH (11:15)
[2023-04-12] MEDS: ATORVASTATIN 20 MG TAB PO SCH (20:18)
[2023-04-13] VITALS (37 sets, daily range): BP systolic 89–154; BP diastolic 33–77; PULSE 54–85; RESP 7–25; TEMP 98.3–99.3; O2SAT 95–100
[2023-04-13] MEDS: ACCU-CHEK COMFORT CURVE STRIP VI SCH ×4 (06:14→18:00)
[2023-04-13] MEDS: FREE WATER GT SCH ×4 (06:14→23:05)
[2023-04-13] MEDS: InsuLIN REG 1unit/0.01ml Soln (100units/ml) SC SCH ×4 (06:17→18:00)
[2023-04-13] MEDS: ALBUTEROL SULF 2.5 MG/0.5ML(0.5%) NEB SOLN HHN SCH ×3 (06:26→18:39)
[2023-04-13] MEDS: EMPAGLIFLOZIN 10 MG TAB PO SCH (06:45)
[2023-04-13] MEDS: CARVEDILOL 3.125 MG TAB PO SCH ×2 (09:51→21:06)
[2023-04-13] MEDS: LISINOPRIL 5 MG TAB GT SCH (09:52)
[2023-04-13] MEDS: ASPirin 81 mg TAB PO SCH (09:52)
[2023-04-13] MEDS: FUROSEMIDE 20 MG TAB PO SCH (09:52)
[2023-04-13] MEDS: AMIODARONE HCL 200 MG TAB PO SCH (09:52)
[2023-04-13] MEDS: methylPREDNISolone SOD SUCC 40 MG/ML VL IV SCH (09:53)
[2023-04-13] MEDS: POTASSIUM EFFERVESENT TAB 25 MEQ PO SCH (09:53)
[2023-04-13] MEDS: PANTOPRAZOLE 40 MG/10 ML VIAL INJ IV SCH ×2 (09:53→21:05)
[2023-04-13 10:12] LABS: Basophils # (auto) 0 10 ^3/uL (0-0.2); Eosinophils # (auto) 0 10 ^3/uL (0-0.8); Eosinophils % (auto) 0.1 % (0.0-7.0); Lymphocytes # (auto) 0.4 10 ^3/uL (0.4-5.4); Monocytes # (auto) 0.4 10 ^3/uL (0-1.3); Neutrophils # (auto) 7.1 10 ^3/uL (1.6-8.6); White Blood Cell 7.8 10^3/uL (4.4-10.8)
[2023-04-13 10:14] LABS: Hematocrit 25.3 % (36.0-46.0); Hemoglobin 8.1 g/dL (12.2-16.2); Lymphocytes % (auto) 4.8 % (10.0-50.0); Mean Corpuscular Hemoglobin 26.5 pg (28.0-32.0); Mean Corpuscular Hgb Conc. 31.9 g/dL (32.0-36.0); Mean Corpuscular Volume 83.2 fL (80.0-100.0); Monocytes % (auto) 4.6 % (0.0-12.0); Neutrophils % (auto) 90.5 % (37.0-80.0); Red Blood Cells 3.04 10^6/uL (4.0-5.20); Red Cell Distribution Width 18.9 % (11.8-14.3)
[2023-04-13 10:17] LABS: Alanine Aminotransferase 45 U/L (7-40); Alkaline Phosphatase 102 U/L (46-116); Anion Gap 5 (5-15); Aspartate Aminotransferase 45 U/L (13-40); BUN/Creatinine Ratio 37.5 (10.0-20.0); Blood Urea Nitrogen 27 mg/dL (9-23); Calcium 8.1 mg/dL (8.5-10.1); Carbon Dioxide 32 mmol/L (20-30); Chloride 102 mmol/L (98-107); Glucose 178 mg/dL (74-106); Potassium 3.6 mmol/L (3.5-5.1); Sodium 139 mmol/L (136-145)
[2023-04-13 10:18] LABS: Albumin 2.7 g/dL (3.2-4.8); Bilirubin, Total 0.4 mg/dL (0.2-1.0); Total Protein 4.6 g/dL (5.7-8.2)
[2023-04-13] MEDS: fentaNYL Drip 2500mCg/250mlNS 250 ML IV SCH (11:15)
[2023-04-13] MEDS: MIDAZOLAM DRIP 50 mg/50mL 50 ML IV SCH (13:00)
[2023-04-13] MEDS: ATORVASTATIN 20 MG TAB PO SCH (21:05)
[2023-04-14] VITALS (38 sets, daily range): BP systolic 89–169; BP diastolic 36–69; PULSE 54–81; RESP 13–24; TEMP 98.4–99; O2SAT 90–100
[2023-04-14] MEDS: ACCU-CHEK COMFORT CURVE STRIP VI SCH ×4 (00:12→17:46)
[2023-04-14] MEDS: ALBUTEROL SULF 2.5 MG/0.5ML(0.5%) NEB SOLN HHN SCH ×4 (00:30→18:18)
[2023-04-14] MEDS: NOREPINEPHRINE 8 MG/250ML KIT 250 ML IV SCH (01:00)
[2023-04-14 04:25] LABS: Basophils # (auto) 0 10 ^3/uL (0-0.2); Eosinophils # (auto) 0 10 ^3/uL (0-0.8); Eosinophils % (auto) 0.1 % (0.0-7.0); Hematocrit 21.6 % (36.0-46.0); Mean Corpuscular Volume 82.8 fL (80.0-100.0); Monocytes # (auto) 0.3 10 ^3/uL (0-1.3); White Blood Cell 4.9 10^3/uL (4.4-10.8)
[2023-04-14 04:27] LABS: Basophils % (auto) 0.1 % (0.0-2.0); Lymphocytes # (auto) 0.4 10 ^3/uL (0.4-5.4); Lymphocytes % (auto) 7.5 % (10.0-50.0); Mean Corpuscular Hgb Conc. 32.6 g/dL (32.0-36.0); Monocytes % (auto) 5.9 % (0.0-12.0); Neutrophils # (auto) 4.2 10 ^3/uL (1.6-8.6); Neutrophils % (auto) 86.4 % (37.0-80.0); Red Cell Distribution Width 19.6 % (11.8-14.3)
[2023-04-14] MEDS: FREE WATER GT SCH ×3 (05:46→17:46)
[2023-04-14] MEDS: EMPAGLIFLOZIN 10 MG TAB PO SCH (05:47)
[2023-04-14] MEDS: InsuLIN REG 1unit/0.01ml Soln (100units/ml) SC SCH ×4 (05:57→18:22)
[2023-04-14 06:11] LABS: Basophils # (auto) 0 10 ^3/uL (0-0.2); Eosinophils # (auto) 0 10 ^3/uL (0-0.8); Hematocrit 22.8 % (36.0-46.0); Lymphocytes # (auto) 0.4 10 ^3/uL (0.4-5.4); Monocytes # (auto) 0.3 10 ^3/uL (0-1.3); White Blood Cell 5.3 10^3/uL (4.4-10.8)
[2023-04-14 06:14] LABS: Eosinophils % (auto) 0.1 % (0.0-7.0); Hemoglobin 7.4 g/dL (12.2-16.2); Lymphocytes % (auto) 7.2 % (10.0-50.0); Mean Corpuscular Hemoglobin 27.3 pg (28.0-32.0); Mean Corpuscular Hgb Conc. 32.6 g/dL (32.0-36.0); Mean Corpuscular Volume 83.9 fL (80.0-100.0); Monocytes % (auto) 5.6 % (0.0-12.0); Neutrophils # (auto) 4.6 10 ^3/uL (1.6-8.6); Neutrophils % (auto) 87.1 % (37.0-80.0); Red Blood Cells 2.72 10^6/uL (4.0-5.20)
[2023-04-14] MEDS: fentaNYL Drip 2500mCg/250mlNS 250 ML IV SCH (07:17)
[2023-04-14] MEDS: MIDAZOLAM DRIP 50 mg/50mL 50 ML IV SCH (07:17)
[2023-04-14] MEDS: methylPREDNISolone SOD SUCC 40 MG/ML VL IV SCH (07:45)
[2023-04-14] MEDS: POTASSIUM EFFERVESENT TAB 25 MEQ PO SCH (07:45)
[2023-04-14] MEDS: PANTOPRAZOLE 40 MG/10 ML VIAL INJ IV SCH ×2 (07:45→21:45)
[2023-04-14] MEDS: FUROSEMIDE 20 MG TAB PO SCH (07:46)
[2023-04-14] MEDS: AMIODARONE HCL 200 MG TAB PO SCH (07:46)
[2023-04-14] MEDS: ASPirin 81 mg TAB PO SCH (07:46)
[2023-04-14] MEDS: LISINOPRIL 5 MG TAB GT SCH (07:47)
[2023-04-14] MEDS: CARVEDILOL 3.125 MG TAB PO SCH ×2 (07:47→21:46)
[2023-04-14 08:17] LABS: INR 1.14 (0.9-1.15); Partial Thromboplastin Time 21.4 SEC (24.5-34.5); Prothrombin Time 11.9 sec (9.3-11.8)
[2023-04-14 20:00] LABS: Base Excess 9.2 mmol/L (-2.0-2.0)
[2023-04-14] MEDS: ATORVASTATIN 20 MG TAB PO SCH (21:46)
[2023-04-15] VITALS (28 sets, daily range): BP systolic 121–155; BP diastolic 33–52; PULSE 48–69; RESP 16–27; TEMP 98.3–99.4; O2SAT 92–100
[2023-04-15] MEDS: NOREPINEPHRINE 8 MG/250ML KIT 250 ML IV SCH (01:00)
[2023-04-15 04:44] LABS: Basophils # (auto) 0 10 ^3/uL (0-0.2); Eosinophils # (auto) 0 10 ^3/uL (0-0.8); Lymphocytes # (auto) 0.4 10 ^3/uL (0.4-5.4); Lymphocytes % (auto) 5.5 % (10.0-50.0); Mean Corpuscular Hemoglobin 26.9 pg (28.0-32.0); Red Blood Cells 2.97 10^6/uL (4.0-5.20); White Blood Cell 6.7 10^3/uL (4.4-10.8)
[2023-04-15 04:45] LABS: Basophils % (auto) 0.2 % (0.0-2.0); Eosinophils % (auto) 0.2 % (0.0-7.0); Hematocrit 24.8 % (36.0-46.0); Mean Corpuscular Hgb Conc. 32.2 g/dL (32.0-36.0); Mean Corpuscular Volume 83.8 fL (80.0-100.0); Monocytes # (auto) 0.3 10 ^3/uL (0-1.3); Monocytes % (auto) 5.1 % (0.0-12.0)
[2023-04-15] MEDS: FREE WATER GT SCH ×4 (05:55→18:27)
[2023-04-15] MEDS: EMPAGLIFLOZIN 10 MG TAB PO SCH (05:55)
[2023-04-15] MEDS: ACCU-CHEK COMFORT CURVE STRIP VI SCH ×4 (05:55→18:21)
[2023-04-15] MEDS: InsuLIN REG 1unit/0.01ml Soln (100units/ml) SC SCH ×4 (06:00→18:21)
[2023-04-15] MEDS: ALBUTEROL SULF 2.5 MG/0.5ML(0.5%) NEB SOLN HHN SCH ×4 (07:05→18:42)
[2023-04-15 09:42] LABS: Alanine Aminotransferase 42 U/L (7-40); Alkaline Phosphatase 86 U/L (46-116); Anion Gap 4 (5-15); BUN/Creatinine Ratio 38.1 (10.0-20.0); Blood Urea Nitrogen 24 mg/dL (9-23); Calcium 8.1 mg/dL (8.5-10.1); Carbon Dioxide 34 mmol/L (20-30); Chloride 103 mmol/L (98-107); Glucose 104 mg/dL (74-106); Potassium 3.8 mmol/L (3.5-5.1); Sodium 141 mmol/L (136-145)
[2023-04-15 09:43] LABS: Albumin 2.8 g/dL (3.2-4.8); Aspartate Aminotransferase 31 U/L (13-40); Bilirubin, Total 0.6 mg/dL (0.2-1.0); Total Protein 4.6 g/dL (5.7-8.2)
[2023-04-15] MEDS: PANTOPRAZOLE 40 MG/10 ML VIAL INJ IV SCH (10:12)
[2023-04-15] MEDS: methylPREDNISolone SOD SUCC 40 MG/ML VL IV SCH (10:12)
[2023-04-15] MEDS: POTASSIUM EFFERVESENT TAB 25 MEQ PO SCH (10:13)
[2023-04-15] MEDS: FUROSEMIDE 20 MG TAB PO SCH (10:13)
[2023-04-15] MEDS: ASPirin 81 mg TAB PO SCH (10:13)
[2023-04-15] MEDS: AMIODARONE HCL 200 MG TAB PO SCH (10:13)
[2023-04-15] MEDS: LISINOPRIL 5 MG TAB GT SCH (10:14)
[2023-04-15] MEDS: CARVEDILOL 3.125 MG TAB PO SCH (10:14)
[2023-04-15] MEDS: fentaNYL Drip 2500mCg/250mlNS 250 ML IV SCH (11:15)
[2023-04-15] MEDS: MIDAZOLAM DRIP 50 mg/50mL 50 ML IV SCH (13:00)
== END 2023-04-15 20:28 | disposition short-term general hospital (02) | DRG 5 ==
LOC: ER 00:55 → EDBD 00:55 → TELE 06:33 → ICU WEST 20:44 → DOU IN ICU 04-13 20:37
PROVIDERS: ADMIT Nurse Practitioner; ATTEND Nurse Practitioner Acute Care
PROC: 5A1955Z Respiratory Ventilation, Greater than 96 Consecutive Hours (ICD-10-PCS; 2023-03-14)
PROC: 0BH17EZ Insertion of Endotracheal Airway into Trachea, Via Natural or Artificial Opening (ICD-10-PCS; 2023-03-14)
PROC: B544ZZA Ultrasonography of Left Jugular Veins, Guidance (ICD-10-PCS; 2023-03-15)
PROC: 02HV33Z Insertion of Infusion Device into Superior Vena Cava, Percutaneous Approach (ICD-10-PCS; 2023-03-15)
PROC: 05HN33Z Insertion of Infusion Device into Left Internal Jugular Vein, Percutaneous Approach (ICD-10-PCS; 2023-03-15)
PROC: 5A1955Z Respiratory Ventilation, Greater than 96 Consecutive Hours (ICD-10-PCS; 2023-03-19)
PROC: 5A09357 Assistance with Respiratory Ventilation, Less than 24 Consecutive Hours, Continuous Positive Airway Pressure (ICD-10-PCS; 2023-03-19)
PROC: 30233N1 Transfusion of Nonautologous Red Blood Cells into Peripheral Vein, Percutaneous Approach (ICD-10-PCS; 2023-03-19)
PROC: 0BH17EZ Insertion of Endotracheal Airway into Trachea, Via Natural or Artificial Opening (ICD-10-PCS; 2023-03-19)
PROC: 5A1955Z Respiratory Ventilation, Greater than 96 Consecutive Hours (ICD-10-PCS; 2023-03-30)
PROC: 5A09357 Assistance with Respiratory Ventilation, Less than 24 Consecutive Hours, Continuous Positive Airway Pressure (ICD-10-PCS; 2023-03-30)
PROC: 0BH17EZ Insertion of Endotracheal Airway into Trachea, Via Natural or Artificial Opening (ICD-10-PCS; 2023-03-30)
PROC: 02HV33Z Insertion of Infusion Device into Superior Vena Cava, Percutaneous Approach (ICD-10-PCS; 2023-04-05)
PROC: B548ZZA Ultrasonography of Superior Vena Cava, Guidance (ICD-10-PCS; 2023-04-05)
PROC: 0B110F4 Bypass Trachea to Cutaneous with Tracheostomy Device, Open Approach (ICD-10-PCS; principal; 2023-04-08 09:19)
DX: J96.21 Acute and chronic respiratory failure with hypoxia (principal); I46.2 Cardiac arrest due to underlying cardiac condition; G92.8 Other toxic encephalopathy; I50.23 Acute on chronic systolic (congestive) heart failure; E43 Unspecified severe protein-calorie malnutrition; I21.A1 Myocardial infarction type 2; D69.6 Thrombocytopenia, unspecified; K92.2 Gastrointestinal hemorrhage, unspecified; E87.4 Mixed disorder of acid-base balance; J18.9 Pneumonia, unspecified organism; I13.0 Hypertensive heart and chronic kidney disease with heart failure and stage 1 through stage 4 chronic kidney disease, or unspecified chronic kidney disease; J98.11 Atelectasis; B37.49 Other urogenital candidiasis; I47.20 Ventricular tachycardia, unspecified; N17.9 Acute kidney failure, unspecified; E66.9 Obesity, unspecified; I25.10 Atherosclerotic heart disease of native coronary artery without angina pectoris; I48.0 Paroxysmal atrial fibrillation; I35.8 Other nonrheumatic aortic valve disorders; E78.5 Hyperlipidemia, unspecified; D64.9 Anemia, unspecified; I44.7 Left bundle-branch block, unspecified; K21.9 Gastro-esophageal reflux disease without esophagitis; R00.1 Bradycardia, unspecified; Z20.822 Contact with and (suspected) exposure to COVID-19; E11.22 Type 2 diabetes mellitus with diabetic chronic kidney disease; J45.901 Unspecified asthma with (acute) exacerbation; J96.22 Acute and chronic respiratory failure with hypercapnia; N18.9 Chronic kidney disease, unspecified; Z95.1 Presence of aortocoronary bypass graft; Z95.5 Presence of coronary angioplasty implant and graft; Z79.4 Long term (current) use of insulin; Z93.1 Gastrostomy status; Z86.14 Personal history of Methicillin resistant Staphylococcus aureus infection; Z99.11 Dependence on respirator [ventilator] status
CPT/HCPCS: 31500; 36415; 36600; 70450; 70490; 71045; 76604; 80048; 80053; 80202; 81001; 82805; 82962; 83605; 83735; 83880; 84132; 84443; 84484; 85007; 85014; 85018; 85025; 85027; 85610; 85730; 86850; 86900; 86901; 86920; 87040; 87070; 87077; 87081; 87086; 87088; 87186; 87205; 87426; 87804; 93005; 93971; 94002; 94003; 94640; 94660; 96365; 96367; 97163; 99291; A4605; C9113; G0378; J0330; J0696; J1450; J1815; J1956; J2185; J2250; J2704; J3480; J3490; J7060